=== PATIENT | male | born 1960 | race Hispanic/Latino ===

== ENCOUNTER 2016-12-05 16:53 | Emergency (ER) | payer OTHER ==
--- NOTE | 2016-12-05 17:06 | EDM.PDOC ---
ED HPI GENERAL MEDICAL PROBLEM - General Chief Complaint: Back Pain or Injury Stated Complaint: FELL AND HIT TAIL BONE/WC Time Seen by Provider: 12/05/16 16:59 - History of Present Illness INITIAL COMMENTS - FREE TEXT/NARRATIVE: HISTORY AND PHYSICAL: History of present illness: Patient is a 56-year-old male with no significant past medical history presents status post fall in which he struck his right hip and pelvis is from standing position there is no head or neck pain or trauma he simply slipped personal chest pain dizziness palpitations or other concern he denies abdominal or chest pain but her neck pain Review of systems: As per history of present illness and below otherwise all systems reviewed and negative. Past medical history: As per history of present illness and as reviewed below otherwise noncontributory. Surgical history: As per history of present illness and as reviewed below otherwise noncontributory. Social history: No reported history of drug or alcohol abuse. Family history: As per history of present illness and as reviewed below otherwise noncontributory. Physical exam: HEENT: Atraumatic, normocephalic, pupils reactive, negative for conjunctival pallor or scleral icterus, mucous membranes moist, throat clear, neck supple, nontender, trachea midline. Lungs: Clear to auscultation, breath sounds equal bilaterally, chest nontender. Heart: S1S2, regular, negative for clicks, rubs, or JVD. Abdomen: Soft, nondistended, nontender. Negative for masses or hepatosplenomegaly. Negative for costovertebral tenderness. Pelvis: Stable nontender. Patient has some erythema noted over the right lateral superior iliac crest is no crepitation or point tenderness Genitourinary: Deferred. Rectal: Deferred. Extremities: Atraumatic, negative for cords or calf pain. Neurovascular unremarkable. Neuro: Awake, alert, oriented. Cranial nerves II through XII unremarkable. Cerebellum unremarkable. Motor and sensory unremarkable throughout. Exam nonfocal. Back: No vertebral body or point tenderness patient able to stand on his toes back on his heels deep tendon reflexes are normal Diagnostics: CBC CMP PT/INR UA chest x-ray lumbar spine x-ray right hip/pelvis x-ray Therapeutics: None Impression: X-ray status post fall #2 right pelvis/hip contusion Definitive disposition and diagnosis as appropriate pending reevaluation and review of above. right flank/back Pain Score (Numeric/FACES): 10 - Related Data Allergies Allergy/AdvReac Type Severity Reaction Status Date / Time No Known Allergies Allergy Verified 12/05/16 17:01 ED ROS GENERAL - Review of Systems Review Of Systems: ROS reveals no pertinent complaints other than HPI. ED EXAM, GENERAL - Physical Exam Exam: See Below (See dictation) Course - Vital Signs Last Recorded V/S: Last Vital Signs Temp 36.9 C 12/05/16 17:01 Pulse 58 L 12/05/16 17:01 Resp 18 12/05/16 17:01 BP 161/95 H 12/05/16 17:01 Pulse Ox 95 12/05/16 17:01 - Orders/Labs/Meds Orders: Active Orders 24 hr Category Date Time Status Chest 2V [CR] Stat Exams 12/05/16 17:02 Taken Hip Min 2V or 3V w Pelvis Rt [CR] Stat Exams 12/05/16 17:03 Taken Lumbar Spine 2 or 3V [CR] Stat Exams 12/05/16 17:04 Taken Labs: Laboratory Tests 12/05/16 12/05/16 12/05/16 Range/Units 17:15 17:15 17:15 WBC 10.20 (4.0-11.0) K/uL RBC 5.04 (4.50-5.90) M/uL Hgb 15.1 (13.0-17.0) g/dL Hct 45.2 (38.0-50.0) % MCV 89.7 (80.0-98.0) fL MCH 30.0 (27.0-32.0) pg MCHC 33.4 (31.0-37.0) g/dL RDW Std Deviation 45.0 (28.0-62.0) fl RDW Coeff of Fatuma 14 (11.0-15.0) % Plt Count 252 (150-400) K/uL MPV 10.50 (7.40-12.00) fL Neut % (Auto) 70.1 (48.0-80.0) % Lymph % (Auto) 21.8 (16.0-40.0) % Fountain % (Auto) 4.7 (0.0-15.0) % Eos % (Auto) 3.0 (0.0-7.0) % Baso % (Auto) 0.4 (0.0-1.5) % Neut # 7.2 H (1.4-5.7) K/uL Lymph # 2.2 (0.6-2.4) K/uL Fountain # 0.5 (0.0-0.8) K/uL Eos # 0.3 (0.0-0.7) K/uL Baso # 0.0 (0.0-0.1) K/uL Nucleated RBC % 0.0 /100WBC Nucleated RBCs # 0 K/uL INR 1.00 (0.86-1.11) Sodium 137 (136-146) mmol/L Potassium 3.8 (3.5-5.1) mmol/L Chloride 107 (98-110) mmol/L Carbon Dioxide 20 L (21-31) mmol/L BUN 11 (6.0-23.0) mg/dL Creatinine 1.0 (0.6-1.5) mg/dL Est Cr Clr Drug Dosing 76.21 mL/min Estimated GFR (MDRD) > 60.0 ml/min Glucose 126 H (60-110) mg/dL Calcium 9.2 (8.8-10.8) mg/dL Total Bilirubin 0.4 (0.1-1.5) mg/dL AST 18 (5-40) IU/L ALT 20 (8-54) IU/L Alkaline Phosphatase 126 (40-150) Total Protein 6.8 (6.0-8.0) g/dL Albumin 4.1 (3.5-5.0) g/dL Globulin 2.7 (2.0-3.5) g/dL Albumin/Globulin Ratio 1.5 (1.3-2.8) Urine Color Urine Appearance Urine pH (5.0-8.0) Ur Specific [place] (1.001-1.035) Urine Protein (NEGATIVE) mg/dL Urine Glucose (UA) (NEGATIVE) mg/dL Urine Ketones (NEGATIVE) mg/dL Urine Occult Blood (NEGATIVE) Urine Nitrite (NEGATIVE) Urine Bilirubin (NEGATIVE) Urine Urobilinogen (<2.0) EU/dL Ur Leukocyte Esterase (NEGATIVE) Urine RBC (0-2/HPF) Urine WBC (0-5/HPF) Ur Epithelial Cells (NONE-FEW) Urine Bacteria (NEGATIVE) Urine Mucus (NONE-MOD) 12/05/16 Range/Units 17:15 WBC (4.0-11.0) K/uL RBC (4.50-5.90) M/uL Hgb (13.0-17.0) g/dL Hct (38.0-50.0) % MCV (80.0-98.0) fL MCH (27.0-32.0) pg MCHC (31.0-37.0) g/dL RDW Std Deviation (28.0-62.0) fl RDW Coeff of Fatuma (11.0-15.0) % Plt Count (150-400) K/uL MPV (7.40-12.00) fL Neut % (Auto) (48.0-80.0) % Lymph % (Auto) (16.0-40.0) % Fountain % (Auto) (0.0-15.0) % Eos % (Auto) (0.0-7.0) % Baso % (Auto) (0.0-1.5) % Neut # (1.4-5.7) K/uL Lymph # (0.6-2.4) K/uL Fountain # (0.0-0.8) K/uL Eos # (0.0-0.7) K/uL Baso # (0.0-0.1) K/uL Nucleated RBC % /100WBC Nucleated RBCs # K/uL INR (0.86-1.11) Sodium (136-146) mmol/L Potassium (3.5-5.1) mmol/L Chloride (98-110) mmol/L Carbon Dioxide (21-31) mmol/L BUN (6.0-23.0) mg/dL Creatinine (0.6-1.5) mg/dL Est Cr Clr Drug Dosing mL/min Estimated GFR (MDRD) ml/min Glucose (60-110) mg/dL Calcium (8.8-10.8) mg/dL Total Bilirubin (0.1-1.5) mg/dL AST (5-40) IU/L ALT (8-54) IU/L Alkaline Phosphatase (40-150) Total Protein (6.0-8.0) g/dL Albumin (3.5-5.0) g/dL Globulin (2.0-3.5) g/dL Albumin/Globulin Ratio (1.3-2.8) Urine Color YELLOW Urine Appearance CLEAR Urine pH 5.5 (5.0-8.0) Ur Specific [place] 1.025 (1.001-1.035) Urine Protein NEGATIVE (NEGATIVE) mg/dL Urine Glucose (UA) NEGATIVE (NEGATIVE) mg/dL Urine Ketones NEGATIVE (NEGATIVE) mg/dL Urine Occult Blood TRACE-INTACT (NEGATIVE) Urine Nitrite NEGATIVE (NEGATIVE) Urine Bilirubin NEGATIVE (NEGATIVE) Urine Urobilinogen 0.2 (<2.0) EU/dL Ur Leukocyte Esterase NEGATIVE (NEGATIVE) Urine RBC 0-1 (0-2/HPF) Urine WBC 0-1 (0-5/HPF) Ur Epithelial Cells FEW (NONE-FEW) Urine Bacteria RARE (NEGATIVE) Urine Mucus LIGHT (NONE-MOD) Departure - Departure Time of Disposition: 18:12 Disposition: Home, Self-Care 01 Condition: good Clinical Impression: Fall, Contusion Forms: ED Department Discharge Additional Instructions: The following information is given to patients seen in the emergency department who are being discharged to home. This information is to outline your options for follow-up care. We provide all patients seen in our emergency department with a follow-up referral. The need for follow-up, as well as the timing and circumstances, are variable depending upon the specifics of your emergency department visit. If you don't have a primary care physician on staff, we will provide you with a referral. We always advise you to contact your personal physician following an emergency department visit to inform them of the circumstance of the visit and for follow-up with them and/or the need for any referrals to a consulting specialist. The emergency department will also refer you to a specialist when appropriate. This referral assures that you have the opportunity for followup care with a specialist. All of these measure are taken in an effort to provide you with optimal care, which includes your followup. Under all circumstances we always encourage you to contact your private physician who remains a resource for coordinating your care. When calling for followup care, please make the office aware that this follow-up is from your recent emergency room visit. If for any reason you are refused follow-up, please contact the [facility] emergency department at and asked to speak to the emergency department charge nurse. Motrin/Tylenol as directed followup private medical doctor/occupational medicine 24-48 hours return as needed if his - My Orders Last 24 Hours: My Active Orders 12/05/16 17:02 Chest 2V [CR] Stat 12/05/16 17:03 Hip Min 2V or 3V w Pelvis Rt [CR] Stat 12/05/16 17:04 Lumbar Spine 2 or 3V [CR] Stat - Assessment/Plan Last 24 Hours: My Active Orders 12/05/16 17:02 Chest 2V [CR] Stat 12/05/16 17:03 Hip Min 2V or 3V w Pelvis Rt [CR] Stat 12/05/16 17:04 Lumbar Spine 2 or 3V [CR] Stat
[2016-12-05 17:55] LABS: CHLORIDE,CL 107 mmol/L (98-110); SODIUM,NA 137 mmol/L (136-146)
[2016-12-05 19:00] VITALS: BP 131/81
--- NOTE | 2016-12-08 15:33 | CR ---
EXAM DATE: 12/05/16 PATIENT'S AGE: 56 Patient: HARRY AMAYA Facility: [place], [place] Site . Site : 1960 Study: XRay Chest [id number]/3/2017 6:09:29 PM Ordering Physician: Doctor Molina Final Report: INDICATION: pain after fall FINDINGS: Two PA chest x-rays and a single lateral chest x-ray show a normal cardiac silhouette. The lungs show no focal pulmonary opacities. Sharp pleural margins. No pneumothorax. IMPRESSION: No evidence of acute pulmonary abnormalities. Dictated by Godwin Castillo MD @ 12/05/2016 6:14:03 PM Dictated by: Godwin Castillo MD @ 12/05/2016 18:14:15 (Electronic Signature) Report Signed by Proxy and Original Signed Document filed in the Medical Record. JEAN-PIERRE
--- NOTE | 2016-12-08 15:34 | CR ---
EXAM DATE: 12/05/16 PATIENT'S AGE: 56 Patient: HARRY AMAYA Facility: [place], [place] Site . Site : 1960 Study: XRay Spine Lumbar [id number]/3/2017 6:09:48 PM Ordering Physician: Doctor Molina Final Report: INDICATION: pain after fall FINDINGS: Three views of the lumbar spine show dextro convex scoliotic changes of the lumbar spine. Multilevel disc space narrowing and marginal osteophyte formation. No evidence of acute fracture or dislocation. No other bony or soft tissue abnormalities identified. Dictated by Godwin Castillo MD @ 12/05/2016 6:15:41 PM Dictated by: Godwin Castillo MD @ 12/05/2016 18:19:25 (Electronic Signature) Report Signed by Proxy and Original Signed Document filed in the Medical Record. JEAN-PIERRE
--- NOTE | 2016-12-08 15:34 | CR ---
EXAM DATE: 12/05/16 PATIENT'S AGE: 56 Patient: HARRY AMAYA Facility: [place], [place] Site . Site : 1960 Study: XRay Extremity Right Hip.Pelvis [id number]/3/2017 6:10:10 PM Ordering Physician: Brandin Magaña Final Report: INDICATION: pain after fall FINDINGS: A single frontal view of the pelvis along with 2 views of the right hip show no evidence of acute fracture or dislocation. The hip joints appear intact. Degenerative changes of the lower lumbar spine. No other bony or soft tissue abnormalities identified. Dictated by Godwin Castillo MD @ 12/05/2016 6:20:47 PM Dictated by: Godwin Castillo MD @ 12/05/2016 18:21:12 (Electronic Signature) Report Signed by Proxy and Original Signed Document filed in the Medical Record. MTDSaray
== END 2016-12-05 18:57 | disposition home or self-care (01) ==
LOC: MW.ED 16:53
DX: S70.01XA Contusion of right hip, initial encounter (principal); W18.09XA Striking against other object with subsequent fall, initial encounter
CPT/HCPCS: 36415; 71020; 71020-26; 72100; 72100-26; 73502-26-RT; 73502-RT; 80053; 81001; 85025; 85610; 99283

== ENCOUNTER 2018-10-21 16:04 | Emergency (ER) | payer BC ==
--- NOTE | 2018-10-21 16:22 | EDM.PDOC ---
ED HPI GENERAL MEDICAL PROBLEM - General Chief Complaint: Respiratory Problem Stated Complaint: COUGH,FEVER Time Seen by Provider: 10/21/18 16:16 Source of Information: Reports: Patient History Limitations: Reports: No Limitations - History of Present Illness INITIAL COMMENTS - FREE TEXT/NARRATIVE: HISTORY AND PHYSICAL: History of present illness: Patient is a 58-year-old male who presents to the emergency room with concerns of cough, fever and body aches. He states that 2 of his children who live in the home with him have recently been diagnosed with influenza. He states they were treated with Tamiflu but he did not receive any prophylactic treatment. He denies any chest pain, shortness of breath, abdominal pain, nausea, vomiting, diarrhea, constipation or dysuria. He has been able to eat and drink appropriately. Denies any recent travel or rashes. Review of systems: As per history of present illness and below otherwise all systems reviewed and negative. Past medical history: As per history of present illness and as reviewed below otherwise noncontributory. Surgical history: As per history of present illness and as reviewed below otherwise noncontributory. Social history: See social history for further information Family history: As per history of present illness and as reviewed below otherwise noncontributory. Physical exam: General: Well-developed and well-nourished 58-year-old male. Alert and oriented. Nontoxic appearing and in no acute distress. HEENT: Atraumatic, normocephalic, pupils equal and reactive bilaterally, negative for conjunctival pallor or scleral icterus, mucous membranes moist, TMs normal bilaterally, throat clear, neck supple, nontender, trachea midline. No drooling or trismus noted. No meningeal signs. No hot potato voice noted. Lungs: Clear to auscultation, breath sounds equal bilaterally, chest nontender. Heart: S1S2, regular rate and rhythm without overt murmur Abdomen: Soft, nondistended, nontender. Negative for masses or hepatosplenomegaly. Negative for costovertebral tenderness. Pelvis: Stable nontender. Genitourinary: Deferred. Rectal: Deferred. Skin: Intact, warm, dry. No lesions or rashes noted. Extremities: Atraumatic, negative for cords or calf pain. Neurovascular unremarkable. Neuro: Awake, alert, oriented. Cranial nerves II through XII unremarkable. Cerebellum unremarkable. Motor and sensory unremarkable throughout. Exam nonfocal. Notes: Negative flu, but due to exposure and symptoms will treat the patient with Tamiflu. Supportive care measures were reviewed and discussed. He voices understanding and is agreeable to plan of care. Denies any further questions or concerns at this time. Diagnostics: Chest x-ray, influenza Therapeutics: None Prescription: Tamiflu Tylenol No. 3 (#15) Impression: Viral Upper Respiratory Illness Plan: 1. Standard contact precautions (covering mouth while coughing, avoid sharing drinking cups and eating utensils). Please make sure you're doing good handwashing as this is contagious. 2. Please start the Tamiflu today, take as directed. 3. Supportive care measures such as Tylenol and/or ibuprofen for pain and fever management.Encourage small frequent sips of fluids to prevent dehydration. 4. Follow-up with your primary care provider in the next 1-2 days. Return to the ED as needed and as discussed. Definitive disposition and diagnosis as appropriate pending reevaluation and review of above. Whole body Pain Score (Numeric/FACES): 7 - Related Data Allergies Allergy/AdvReac Type Severity Reaction Status Date / Time No Known Allergies Allergy Verified 10/21/18 16:15 Home Meds: Home Meds Acetaminophen with Codeine [Tylenol with Codeine #3 Tablet] 1 each PO Q4HR PRN # 15 tablet 10/21/18 [Rx] Oseltamivir [Tamiflu] 75 mg PO BID 5 Days #10 cap 10/21/18 [Rx] Past Medical History HEENT History: Reports: Other (See Below) Other HEENT History: wears glasses Cardiovascular History: Reports: None Respiratory History: Reports: None Gastrointestinal History: Reports: Other (See Below) Other Gastrointestinal History: ulcer Genitourinary History: Reports: None Musculoskeletal History: Reports: None Neurological History: Reports: None Psychiatric History: Reports: None Endocrine/Metabolic History: Reports: None Hematologic History: Reports: None Immunologic History: Reports: None Oncologic (Cancer) History: Reports: None Dermatologic History: Reports: None - Infectious Disease History Infectious Disease History: Reports: None - Past Surgical History Head Surgeries/Procedures: Reports: None GI Surgical History: Reports: Appendectomy Social & Family History - Family History Family Medical History: Noncontributory - Caffeine Use Caffeine Use: Reports: Soda ED ROS GENERAL - Review of Systems Review Of Systems: ROS reveals no pertinent complaints other than HPI. ED EXAM, GENERAL - Physical Exam Exam: See Below (See dictation) Course - Vital Signs Last Recorded V/S: Last Vital Signs Temp 101.0 F H 10/21/18 16:16 Pulse 82 10/21/18 16:16 Resp 16 10/21/18 16:16 BP 140/93 H 10/21/18 16:16 Pulse Ox 96 10/21/18 16:16 - Orders/Labs/Meds Orders: Active Orders 24 hr Category Date Time Status Chest 2V [CR] Stat Exams 10/21/18 16:16 Taken Meds: Medications Discontinued Medications Generic Name Dose Route Start Last Admin Trade Name Freq PRN Reason Stop Dose Admin Acetaminophen 1,000 mg 10/21/18 16:58 Tylenol Extra Strength PO 10/21/18 16:59 ONETIME ONE Departure - Departure Time of Disposition: 17:00 Disposition: Home, Self-Care 01 Clinical Impression: Viral upper respiratory illness - Discharge Information Prescriptions: Acetaminophen with Codeine [Tylenol with Codeine #3 Tablet] 1 each PO Q4HR PRN # 15 tablet PRN Reason: Pain (Moderate 4-6) Oseltamivir [Tamiflu] 75 mg PO BID 5 Days #10 cap Instructions: Viral Respiratory Infection, [id number] Referrals: Jasen Thorne MD [Primary Care Provider] - Forms: ED Department Discharge Additional Instructions: The following information is given to patients seen in the emergency department who are being discharged to home. This information is to outline your options for follow-up care. We provide all patients seen in our emergency department with a follow-up referral. The need for follow-up, as well as the timing and circumstances, are variable depending upon the specifics of your emergency department visit. If you don't have a primary care physician on staff, we will provide you with a referral. We always advise you to contact your personal physician following an emergency department visit to inform them of the circumstance of the visit and for follow-up with them and/or the need for any referrals to a consulting specialist. The emergency department will also refer you to a specialist when appropriate. This referral assures that you have the opportunity for follow-up care with a specialist. All of these measure are taken in an effort to provide you with optimal care, which includes your follow-up. Under all circumstances we always encourage you to contact your private physician who remains a resource for coordinating your care. When calling for follow-up care, please make the office aware that this follow-up is from your recent emergency room visit. If for any reason you are refused follow-up, please contact the [facility] Emergency Department at and asked to speak to the emergency department charge nurse. [facility] [address] [place] [id number] [facility] [address] [place] [address] 1. Standard contact precautions (covering mouth while coughing, avoid sharing drinking cups and eating utensils). Please make sure you're doing good handwashing as this is contagious. 2. Please start the Tamiflu today, take as directed. 3. Supportive care measures such as Tylenol and/or ibuprofen for pain and fever management.Encourage small frequent sips of fluids to prevent dehydration. 4. Follow-up with your primary care provider in the next 1-2 days. Return to the ED as needed and as discussed. - My Orders Last 24 Hours: My Active Orders 10/21/18 16:16 Chest 2V [CR] Stat - Assessment/Plan Last 24 Hours: My Active Orders 10/21/18 16:16 Chest 2V [CR] Stat
[2018-10-21] MEDS ORDERED: Acetaminophen 500 MG Tab PO ONE (16:58)
--- NOTE | 2018-10-21 17:08 | CR ---
INDICATION: fever, body aches TECHNIQUE: Chest 2 views. COMPARISON: None. FINDINGS: Cardiovascular and mediastinum: Heart size and vasculature are normal in caliber and appearance. Mediastinum is within normal limits. Lungs and pleural spaces: Lungs are clear. No sign of infiltrate or mass. No sign of pleural effusion. No pneumothorax. Bones and soft tissues: No significant findings. IMPRESSION: Unremarkable chest. Dictated by: Sheng Martínez MD @ 10/21/2018 17:08:12 (Electronically Signed)
[2018-10-21 17:27] VITALS: BP 137/86
== END 2018-10-21 17:15 | disposition home or self-care (01) ==
LOC: MW.ED 16:04
DX: J06.9 Acute upper respiratory infection, unspecified (principal)
CPT/HCPCS: 71046; 71046-26; 87804; 99283

== ENCOUNTER 2018-12-03 10:46 | Inpatient (IN) | payer BC ==
--- NOTE | 2018-12-03 10:51 | EDM.PDOC ---
ED HPI GENERAL MEDICAL PROBLEM - General Chief Complaint: Gastrointestinal Problem Stated Complaint: STOMACH PAIN DIZZY Time Seen by Provider: 12/03/18 11:00 Source of Information: Reports: Patient History Limitations: Reports: No Limitations - History of Present Illness INITIAL COMMENTS - FREE TEXT/NARRATIVE: HISTORY AND PHYSICAL: History of present illness: Patient is a 58-year-old male who presents to the ED with concerns of generalized abdominal pain. Patient states the pain started last night. He states he's had a few episodes of vomiting but no diarrhea or change in stools. He states that he also has felt sweaty throughout the night but has not checked any temperature at home. He states he does feel he is anxious about his father' s health concerns. He states the pain is "all over" and "comes and goes". He states he has been able to eat and drink but has had an episode of vomiting this morning. He states his bowel movements have been normal for him. He did have a bowel movement this morning and states it was "normal." He rates his pain a 6/10. Patient denies shortness of breath, chest pain, blood in stool or urine, difficulties urinating, headache, visual changes, pain with inspiration, or all other GI, , cardiovascular, or respiratory concerns. Patient states he does have a history of high cholesterol but denies any other health history today. Review of systems: As per history of present illness and below otherwise all systems reviewed and negative. Past medical history: As per history of present illness and as reviewed below otherwise noncontributory. Surgical history: As per history of present illness and as reviewed below otherwise noncontributory. Social history: No reported history of drug or alcohol abuse. Family history: As per history of present illness and as reviewed below otherwise noncontributory. Physical exam: General: Patient sitting comfortably in no acute distress and nontoxic appearing HEENT: Atraumatic, normocephalic, pupils reactive, negative for conjunctival pallor or scleral icterus, mucous membranes moist, throat clear, neck supple, nontender, trachea midline. No meningeal signs. Lungs: Clear to auscultation, breath sounds equal bilaterally, chest nontender. Heart: S1S2, regular, negative for clicks, rubs, or overt murmur. Abdomen: Generalized mild pain to palpation of all quadrants. Otherwise, soft, nondistended, nontender. Negative for masses or hepatosplenomegaly. Negative for costovertebral tenderness. No rigidity, rebound, guarding Pelvis: Stable nontender. Genitourinary: Deferred. Rectal: Deferred. Extremities: Atraumatic, negative for cords or calf pain. Neurovascular unremarkable. Neuro: Awake, alert, oriented. Cranial nerves II through XII unremarkable. Cerebellum unremarkable. Motor and sensory unremarkable throughout. Exam nonfocal. Notes: On exam, patient does have mild pain to palpation of the generalized abdomen. He is slightly tachycardic and hypertensive. Will do labs and imaging today. Chest x-ray shows no acute cardiopulmonary process. Abdominal CT shows a partial or complete small bowel obstruction at a prior anastomotic site. He does have an elevated white blood cell count and a slightly elevated lactate level. Blood cultures were obtained. Dr. Boss, the general surgeon, was consulted on this patient and will admit patient. Supportive care measures were reviewed and discussed with patient. He is agreeable to plan of care without any questions or concerns at this time. Diagnostics: CBC, CMP, UA, chest x-ray, EKG, lipase, abdominal/pelvic CT, troponin, cardiac monitoring, blood cultures Therapeutics: saline, zofran, toradol Impression: Small bowel obstruction Plan: 1. Admit to observation Definitive disposition and diagnosis as appropriate pending reevaluation and review of above. Abdominal Pain Score (Numeric/FACES): 10 - Related Data Allergies Allergy/AdvReac Type Severity Reaction Status Date / Time No Known Allergies Allergy Verified 12/03/18 10:48 Home Meds: Home Meds . [No Known Home Meds] 12/03/18 [History] Past Medical History HEENT History: Reports: Other (See Below) Other HEENT History: wears glasses Cardiovascular History: Reports: None Respiratory History: Reports: None Gastrointestinal History: Reports: Other (See Below) Other Gastrointestinal History: ulcer Genitourinary History: Reports: None Musculoskeletal History: Reports: None Neurological History: Reports: None Psychiatric History: Reports: None Endocrine/Metabolic History: Reports: None Hematologic History: Reports: None Immunologic History: Reports: None Oncologic (Cancer) History: Reports: None Dermatologic History: Reports: None - Infectious Disease History Infectious Disease History: Reports: None - Past Surgical History Head Surgeries/Procedures: Reports: None GI Surgical History: Reports: Appendectomy Social & Family History - Family History Family Medical History: Noncontributory - Caffeine Use Caffeine Use: Reports: Soda ED ROS GENERAL - Review of Systems Review Of Systems: ROS reveals no pertinent complaints other than HPI. ED EXAM, GI/ABD - Physical Exam Exam: See Below (See dictation) Course - Vital Signs Last Recorded V/S: Last Vital Signs Temp 97.4 F 12/03/18 10:49 Pulse 107 H 12/03/18 10:49 Resp 18 12/03/18 10:49 BP 147/100 H 12/03/18 10:49 Pulse Ox 96 12/03/18 10:49 - Orders/Labs/Meds Orders: Active Orders 24 hr Category Date Time Status Admission Status [Patient Status] [ADT] Stat ADT 12/03/18 14:28 Active Cardiac Monitoring [RC] . DIRECTED Care 12/03/18 11:04 Active Communication Order [RC] STAT Care 12/03/18 13:38 Active EKG Documentation Completion [RC] STAT Care 12/03/18 11:00 Active Notify Provider Consults [RC] ASDIRECTED Care 12/03/18 13:54 Active Consult to Physician [CONS] Stat Cons 12/03/18 13:54 Active CULTURE BLOOD [BC] Stat Lab 12/03/18 11:58 Results CULTURE BLOOD [BC] Stat Lab 12/03/18 12:09 Received Sodium Chloride 0.9% [Normal Saline] 1,000 ml Med 12/03/18 13:28 Active IV STAT Blood Culture x2 Reflex Set [OM.PC] Stat Oth 12/03/18 11:33 Ordered Medication Orders Sodium Chloride (Normal Saline) 1,000 mls @ 150 mls/hr IV STAT ONE Stop: 12/03/18 20:07 Last Admin: 12/03/18 14:03 Dose: 150 mls/hr Labs: Laboratory Tests 12/03/18 12/03/18 12/03/18 Range/Units 11:10 11:10 11:25 WBC 19.69 H (4.0-11.0) K/uL RBC 5.87 (4.50-5.90) M/uL Hgb 17.7 H (13.0-17.0) g/dL Hct 51.4 H (38.0-50.0) % MCV 87.6 (80.0-98.0) fL MCH 30.2 (27.0-32.0) pg MCHC 34.4 (31.0-37.0) g/dL RDW Std Deviation 42.7 (28.0-62.0) fl RDW Coeff of Fatuma 13 (11.0-15.0) % Plt Count 242 (150-400) K/uL MPV 10.70 (7.40-12.00) fL Neut % (Auto) 86.8 H (48.0-80.0) % Lymph % (Auto) 7.4 L (16.0-40.0) % [place] % (Auto) 5.2 (0.0-15.0) % Eos % (Auto) 0.5 (0.0-7.0) % Baso % (Auto) 0.1 (0.0-1.5) % Neut # (Auto) 17.1 H (1.4-5.7) K/uL Lymph # (Auto) 1.5 (0.6-2.4) K/uL [place] # (Auto) 1.0 H (0.0-0.8) K/uL Eos # (Auto) 0.1 (0.0-0.7) K/uL Baso # (Auto) 0.0 (0.0-0.1) K/uL Nucleated RBC % 0.0 /100WBC Nucleated RBCs # 0 K/uL Lactate (0.20-2.00) mmol/L Sodium 138 (136-148) mmol/L Potassium 3.7 (3.5-5.1) mmol/L Chloride 104 (98-107) mmol/L Carbon Dioxide 24.8 (21.0-32.0) mmol/L BUN 12 (7.0-18.0) mg/dL Creatinine 1.1 (0.8-1.3) mg/dL Est Cr Clr Drug Dosing 67.67 mL/min Estimated GFR (MDRD) > 60.0 ml/min Glucose 144 H (74-106) mg/dL Calcium 9.3 (8.5-10.1) mg/dL Total Bilirubin 0.7 (0.2-1.0) mg/dL AST 21 (15-37) IU/L ALT 29 (14-63) IU/L Alkaline Phosphatase 127 H (46-116) U/L Troponin I 0.051 (0.000-0.056) ng/mL Total Protein 7.1 (6.4-8.2) g/dL Albumin 3.9 (3.4-5.0) g/dL Globulin 3.2 (2.6-4.0) g/dL Albumin/Globulin Ratio 1.2 (0.9-1.6) Lipase 77 (73-393) U/L Urine Color YELLOW Urine Appearance CLEAR Urine pH 7.5 (5.0-8.0) Ur Specific [place] 1.010 (1.001-1.035) Urine Protein 30 H (NEGATIVE) mg/dL Urine Glucose (UA) NEGATIVE (NEGATIVE) mg/dL Urine Ketones TRACE H (NEGATIVE) mg/dL Urine Occult Blood NEGATIVE (NEGATIVE) Urine Nitrite NEGATIVE (NEGATIVE) Urine Bilirubin SMALL H (NEGATIVE) Urine Ictotest NEGATIVE Urine Urobilinogen 4.0 H (<2.0) EU/dL Ur Leukocyte Esterase NEGATIVE (NEGATIVE) Urine RBC 1-2 (0-2/HPF) Urine WBC 0-1 (0-5/HPF) Ur Epithelial Cells RARE (NONE-FEW) Urine Bacteria RARE (NEGATIVE) 12/03/18 Range/Units 11:58 WBC (4.0-11.0) K/uL RBC (4.50-5.90) M/uL Hgb (13.0-17.0) g/dL Hct (38.0-50.0) % MCV (80.0-98.0) fL MCH (27.0-32.0) pg MCHC (31.0-37.0) g/dL RDW Std Deviation (28.0-62.0) fl RDW Coeff of Fatuma (11.0-15.0) % Plt Count (150-400) K/uL MPV (7.40-12.00) fL Neut % (Auto) (48.0-80.0) % Lymph % (Auto) (16.0-40.0) % [place] % (Auto) (0.0-15.0) % Eos % (Auto) (0.0-7.0) % Baso % (Auto) (0.0-1.5) % Neut # (Auto) (1.4-5.7) K/uL Lymph # (Auto) (0.6-2.4) K/uL [place] # (Auto) (0.0-0.8) K/uL Eos # (Auto) (0.0-0.7) K/uL Baso # (Auto) (0.0-0.1) K/uL Nucleated RBC % /100WBC Nucleated RBCs # K/uL Lactate 2.4 H (0.20-2.00) mmol/L Sodium (136-148) mmol/L Potassium (3.5-5.1) mmol/L Chloride (98-107) mmol/L Carbon Dioxide (21.0-32.0) mmol/L BUN (7.0-18.0) mg/dL Creatinine (0.8-1.3) mg/dL Est Cr Clr Drug Dosing mL/min Estimated GFR (MDRD) ml/min Glucose (74-106) mg/dL Calcium (8.5-10.1) mg/dL Total Bilirubin (0.2-1.0) mg/dL AST (15-37) IU/L ALT (14-63) IU/L Alkaline Phosphatase (46-116) U/L Troponin I (0.000-0.056) ng/mL Total Protein (6.4-8.2) g/dL Albumin (3.4-5.0) g/dL Globulin (2.6-4.0) g/dL Albumin/Globulin Ratio (0.9-1.6) Lipase (73-393) U/L Urine Color Urine Appearance Urine pH (5.0-8.0) Ur Specific [place] (1.001-1.035) Urine Protein (NEGATIVE) mg/dL Urine Glucose (UA) (NEGATIVE) mg/dL Urine Ketones (NEGATIVE) mg/dL Urine Occult Blood (NEGATIVE) Urine Nitrite (NEGATIVE) Urine Bilirubin (NEGATIVE) Urine Ictotest Urine Urobilinogen (<2.0) EU/dL Ur Leukocyte Esterase (NEGATIVE) Urine RBC (0-2/HPF) Urine WBC (0-5/HPF) Ur Epithelial Cells (NONE-FEW) Urine Bacteria (NEGATIVE) Meds: Medications Generic Name Dose Route Start Last Admin Trade Name Freq PRN Reason Stop Dose Admin Sodium Chloride 1,000 mls @ 150 mls/hr 12/03/18 13:28 12/03/18 14:03 Normal Saline IV 12/03/18 20:07 150 mls/hr STAT ONE Administration Discontinued Medications Generic Name Dose Route Start Last Admin Trade Name Yuan PRN Reason Stop Dose Admin Sodium Chloride 1,000 mls @ 999 mls/hr 12/03/18 11:02 12/03/18 11:19 Normal Saline IV 12/03/18 12:02 999 mls/hr STAT ONE Administration Iopamidol 100 ml 12/03/18 12:31 12/03/18 12:42 Isovue Multipack-370 (76%) IVPUSH 12/03/18 12:32 100 ml ONETIME STA Administration Ketorolac Tromethamine 30 mg 12/03/18 11:03 12/03/18 11:19 Toradol IVPUSH 12/03/18 11:04 30 mg ONETIME ONE Administration Nicotine 21 mg 12/03/18 13:42 12/03/18 14:03 Habitrol TRDERM 12/03/18 13:43 21 mg ONETIME ONE Administration Ondansetron HCl 4 mg 12/03/18 11:02 12/03/18 11:19 Zofran IVPUSH 12/03/18 11:03 4 mg ONETIME ONE Administration Departure - Departure Time of Disposition: 14:34 Disposition: Refer to Observation Clinical Impression: Small bowel obstruction - Discharge Information Referrals: PCP,Unknown [Primary Care Provider] - Forms: ED Department Discharge - My Orders Last 24 Hours: My Active Orders 12/03/18 11:00 EKG Documentation Completion [RC] STAT 12/03/18 11:04 Cardiac Monitoring [RC] . DIRECTED 12/03/18 11:33 Blood Culture x2 Reflex Set [OM.PC] Stat 12/03/18 11:58 CULTURE BLOOD [BC] Stat 12/03/18 12:09 CULTURE BLOOD [BC] Stat 12/03/18 13:28 Sodium Chloride 0.9% [Normal Saline] 1,000 ml IV STAT 12/03/18 13:38 Communication Order [RC] STAT 12/03/18 13:54 Notify Provider Consults [RC] ASDIRECTED Consult to Physician [CONS] Stat 12/03/18 14:28 Admission Status [Patient Status] [ADT] Stat - Assessment/Plan Last 24 Hours: My Active Orders 12/03/18 11:00 EKG Documentation Completion [RC] STAT 12/03/18 11:04 Cardiac Monitoring [RC] . DIRECTED 12/03/18 11:33 Blood Culture x2 Reflex Set [OM.PC] Stat 12/03/18 11:58 CULTURE BLOOD [BC] Stat 12/03/18 12:09 CULTURE BLOOD [BC] Stat 12/03/18 13:28 Sodium Chloride 0.9% [Normal Saline] 1,000 ml IV STAT 12/03/18 13:38 Communication Order [RC] STAT 12/03/18 13:54 Notify Provider Consults [RC] ASDIRECTED Consult to Physician [CONS] Stat 12/03/18 14:28 Admission Status [Patient Status] [ADT] Stat
[2018-12-03] MEDS ORDERED: Sodium Chloride 0.9% 1,000 ML IV ONE ×2 (11:02→13:28)
[2018-12-03] MEDS ORDERED: Ondansetron 4 MG/2 ML SDV IVPUSH ONE (11:02)
[2018-12-03] MEDS ORDERED: Ketorolac 30 MG/ML SDV IVPUSH ONE (11:03)
[2018-12-03 11:49] LABS: CHLORIDE,CL 104 mmol/L (98-107); SODIUM,NA 138 mmol/L (136-148)
[2018-12-03] MEDS ORDERED: Iopamidol 755 MG/ML 500 ML Multipack Bottle IVPUSH STA (12:31)
--- NOTE | 2018-12-03 13:11 | CR ---
EXAMINATION: PA chest radiograph. HISTORY: Shortness of breath. FINDINGS: The trachea is midline. The cardiomediastinal silhouette is within normal limits. No pulmonary infiltrates, effusions or pneumothorax. Osseous structures appear unremarkable. IMPRESSION: No acute cardiopulmonary process.
--- NOTE | 2018-12-03 13:20 | CT ---
CT of the abdomen and pelvis with contrast. HISTORY: Pain TECHNIQUE: Axial CT images were obtained of the abdomen and pelvis following administration of 100 mL of Isovue-370 in the right antecubital fossa without complication. Coronal and sagittal reconstructions obtained. FINDINGS: The lung bases are clear, no pleural effusion. Mild dependent atelectasis. The liver, spleen, adrenal glands, and pancreas appear normal. Cholelithiasis without event cholecystitis. No bulky retroperitoneal lymphadenopathy or abdominal ascites. The kidneys enhance and function symmetrically without evidence of obstructive uropathy. The colon appears normal in caliber. No focal pericolonic inflammation or stranding. There are several mildly loops of dilated small bowel measuring up to 3.3 cm. The transition point is noted at the small bowel anastomosis point within the right lower quadrant. There is a trace free pelvic fluid without free air. The urinary bladder is normal. No bulky retroperitoneal lymphadenopathy or abdominal ascites. No suspicious osseous abnormalities identified. Partial sacralization of L5 bilaterally. IMPRESSION: 1. At least partial versus early complete mechanical small bowel obstruction with the transition point at the small bowel anastomosis within the mid abdomen. 2. Trace free pelvic fluid. 3. Likely tiny cholelithiasis.
[2018-12-03] MEDS ORDERED: Nicotine 21 MG/24 Hr Patch TRDERM ONE (13:42)
[2018-12-03] MEDS ORDERED: Ondansetron 4 MG/2 ML SDV IVPUSH PRN (14:39)
--- NOTE | 2018-12-03 14:51 | PCM.HP ---
H&P History of Present Illness - General Date of Service: 12/03/18 Admit Problem/Dx: Admission Diagnosis/Problem Admission Diagnosis/Problem Small bowel obstruction Source of Information: Patient History Limitations: Reports: No Limitations - History of Present Illness Initial Comments - Free Text/Narative: Patient is a 58 y/o gentleman who presented to the ER today c/o abdominal pain, N/V since last night. Hasn't been passing much gas. No BM today. Denies fever or chills. States he had a similar episode a couple of months ago. No history of rectal bleeding. Did have an appendectomy 20+ years at [facility] in [place]. Also appears to have had a small bowel resection for "perforation". Patient isn't exactly sure what was done. Symptom Onset Date: 12/02/18 Duration of Symptoms: Reports: Constant, Recurring Location: Reports: Abdomen Quality: Reports: Ache, Pressure Severity: Moderate Improves with: Reports: Rest Worsens with: Reports: None Associated Symptoms: Reports: Nausea/Vomiting. Denies: Fever/Chills, Headaches , Loss of Appetite Abdominal Pain Score (Numeric/FACES): 10 - Related Data Allergies/Adverse Reactions: Allergies Allergy/AdvReac Type Severity Reaction Status Date / Time No Known Allergies Allergy Verified 12/03/18 10:48 Home Medications: Home Meds . [No Known Home Meds] 12/03/18 [History] Past Medical History HEENT History: Reports: Other (See Below) Other HEENT History: wears glasses Cardiovascular History: Reports: None Respiratory History: Reports: None Gastrointestinal History: Reports: Other (See Below) Other Gastrointestinal History: ulcer Genitourinary History: Reports: None Musculoskeletal History: Reports: None Neurological History: Reports: None Psychiatric History: Reports: None Endocrine/Metabolic History: Reports: None Hematologic History: Reports: None Immunologic History: Reports: None Oncologic (Cancer) History: Reports: None Dermatologic History: Reports: None - Infectious Disease History Infectious Disease History: Reports: None - Past Surgical History Head Surgeries/Procedures: Reports: None GI Surgical History: Reports: Appendectomy Other GI Surgeries/Procedures: Also states he has had a small bowel resection for "perforation". Isn't exactly sure what was done. Social & Family History - Family History Family Medical History: Noncontributory - Tobacco Use Smoking Status *Q: Current Every Day Smoker Years of Tobacco use: 30 Packs/Tins Daily: 1 - Caffeine Use Caffeine Use: Reports: Soda - Recreational Drug Use Recreational Drug Use: No H&P Review of Systems - Review of Systems: Review Of Systems: See Below General: Reports: Decreased Appetite. Denies: Fever, Chills, Malaise, Weakness , Fatigue, Diaphoresis, Weight Loss, Weight Gain HEENT: Reports: No Symptoms Pulmonary: Denies: Shortness of Breath, Wheezing, Cough, Sputum Cardiovascular: Denies: Chest Pain, Palpitations, Dyspnea on Exertion Gastrointestinal: Reports: Abdominal Pain, Anorexia, Constipation, Decreased Appetite, Flatus, Nausea, Vomiting. Denies: Black Stool, Bloody Stool, Diarrhea , Difficulty Swallowing, Distension, Hematemesis, Hematochezia, Melena Genitourinary: Denies: Dysuria, Frequency, Burning, Pain Musculoskeletal: Reports: No Symptoms Skin: Reports: No Symptoms Psychiatric: Denies: Confusion, Depression, Anxiety Neurological: Reports: No Symptoms Hematologic/Lymphatic: Reports: No Symptoms Immunologic: Reports: No Symptoms Exam - Exam Exam: See Below - Vital Signs Vital Signs: Last Vital Signs Temp 97.4 F 12/03/18 10:49 Pulse 107 H 12/03/18 10:49 Resp 18 12/03/18 10:49 BP 147/100 H 12/03/18 10:49 Pulse Ox 96 12/03/18 10:49 Weight: 188 lb - Exam General: Alert, Oriented, Cooperative, Mild Distress HEENT: Conjunctiva Clear, EACs Clear, Pupils Equal, Pupils Reactive. No: Scleral Icterus Neck: Supple, Trachea Midline, +2 Carotid Pulse wo Bruit Lungs: Clear to Auscultation, Normal Respiratory Effort Cardiovascular: Regular Rate, Regular Rhythm, Normal S1, Normal S2. No: Tachycardia GI/Abdominal Exam: Soft, Non-Tender, No Organomegaly, No Distention, No Mass, Abnormal Bowel Sounds (hypoactive, no high pitched tinkles or rushes), Other ( RLQ incision is well healed. No midline incision is present.). No: Guarding, Rigid, Rebound (Male) Exam: No Hernia Rectal (Males) Exam: Deferred Back Exam: Normal Inspection Extremities: Normal Inspection, Normal Range of Motion, No Pedal Edema Peripheral Pulses: 4+: Posterior Tibial (L), Posterior Tibial (R), Dorsalis Pedis (L), Dorsalis Pedis (R) Skin: Warm, Dry, Intact - Patient Data Lab Results Last 24 hrs: Laboratory Results - last 24 hr 12/03/18 12/03/18 12/03/18 Range/Units 11:10 11:10 11:25 WBC 19.69 H (4.0-11.0) K/uL RBC 5.87 (4.50-5.90) M/uL Hgb 17.7 H (13.0-17.0) g/dL Hct 51.4 H (38.0-50.0) % MCV 87.6 (80.0-98.0) fL MCH 30.2 (27.0-32.0) pg MCHC 34.4 (31.0-37.0) g/dL RDW Std Deviation 42.7 (28.0-62.0) fl RDW Coeff of Fatuma 13 (11.0-15.0) % Plt Count 242 (150-400) K/uL MPV 10.70 (7.40-12.00) fL Neut % (Auto) 86.8 H (48.0-80.0) % Lymph % (Auto) 7.4 L (16.0-40.0) % [place] % (Auto) 5.2 (0.0-15.0) % Eos % (Auto) 0.5 (0.0-7.0) % Baso % (Auto) 0.1 (0.0-1.5) % Neut # (Auto) 17.1 H (1.4-5.7) K/uL Lymph # (Auto) 1.5 (0.6-2.4) K/uL [place] # (Auto) 1.0 H (0.0-0.8) K/uL Eos # (Auto) 0.1 (0.0-0.7) K/uL Baso # (Auto) 0.0 (0.0-0.1) K/uL Nucleated RBC % 0.0 /100WBC Nucleated RBCs # 0 K/uL Lactate (0.20-2.00) mmol/L Sodium 138 (136-148) mmol/L Potassium 3.7 (3.5-5.1) mmol/L Chloride 104 (98-107) mmol/L Carbon Dioxide 24.8 (21.0-32.0) mmol/L BUN 12 (7.0-18.0) mg/dL Creatinine 1.1 (0.8-1.3) mg/dL Est Cr Clr Drug Dosing 67.67 mL/min Estimated GFR (MDRD) > 60.0 ml/min Glucose 144 H (74-106) mg/dL Calcium 9.3 (8.5-10.1) mg/dL Total Bilirubin 0.7 (0.2-1.0) mg/dL AST 21 (15-37) IU/L ALT 29 (14-63) IU/L Alkaline Phosphatase 127 H (46-116) U/L Troponin I 0.051 (0.000-0.056) ng/mL Total Protein 7.1 (6.4-8.2) g/dL Albumin 3.9 (3.4-5.0) g/dL Globulin 3.2 (2.6-4.0) g/dL Albumin/Globulin Ratio 1.2 (0.9-1.6) Lipase 77 (73-393) U/L Urine Color YELLOW Urine Appearance CLEAR Urine pH 7.5 (5.0-8.0) Ur Specific [place] 1.010 (1.001-1.035) Urine Protein 30 H (NEGATIVE) mg/dL Urine Glucose (UA) NEGATIVE (NEGATIVE) mg/dL Urine Ketones TRACE H (NEGATIVE) mg/dL Urine Occult Blood NEGATIVE (NEGATIVE) Urine Nitrite NEGATIVE (NEGATIVE) Urine Bilirubin SMALL H (NEGATIVE) Urine Ictotest NEGATIVE Urine Urobilinogen 4.0 H (<2.0) EU/dL Ur Leukocyte Esterase NEGATIVE (NEGATIVE) Urine RBC 1-2 (0-2/HPF) Urine WBC 0-1 (0-5/HPF) Ur Epithelial Cells RARE (NONE-FEW) Urine Bacteria RARE (NEGATIVE) 12/03/18 Range/Units 11:58 WBC (4.0-11.0) K/uL RBC (4.50-5.90) M/uL Hgb (13.0-17.0) g/dL Hct (38.0-50.0) % MCV (80.0-98.0) fL MCH (27.0-32.0) pg MCHC (31.0-37.0) g/dL RDW Std Deviation (28.0-62.0) fl RDW Coeff of Fatuma (11.0-15.0) % Plt Count (150-400) K/uL MPV (7.40-12.00) fL Neut % (Auto) (48.0-80.0) % Lymph % (Auto) (16.0-40.0) % [place] % (Auto) (0.0-15.0) % Eos % (Auto) (0.0-7.0) % Baso % (Auto) (0.0-1.5) % Neut # (Auto) (1.4-5.7) K/uL Lymph # (Auto) (0.6-2.4) K/uL [place] # (Auto) (0.0-0.8) K/uL Eos # (Auto) (0.0-0.7) K/uL Baso # (Auto) (0.0-0.1) K/uL Nucleated RBC % /100WBC Nucleated RBCs # K/uL Lactate 2.4 H (0.20-2.00) mmol/L Sodium (136-148) mmol/L Potassium (3.5-5.1) mmol/L Chloride (98-107) mmol/L Carbon Dioxide (21.0-32.0) mmol/L BUN (7.0-18.0) mg/dL Creatinine (0.8-1.3) mg/dL Est Cr Clr Drug Dosing mL/min Estimated GFR (MDRD) ml/min Glucose (74-106) mg/dL Calcium (8.5-10.1) mg/dL Total Bilirubin (0.2-1.0) mg/dL AST (15-37) IU/L ALT (14-63) IU/L Alkaline Phosphatase (46-116) U/L Troponin I (0.000-0.056) ng/mL Total Protein (6.4-8.2) g/dL Albumin (3.4-5.0) g/dL Globulin (2.6-4.0) g/dL Albumin/Globulin Ratio (0.9-1.6) Lipase (73-393) U/L Urine Color Urine Appearance Urine pH (5.0-8.0) Ur Specific [place] (1.001-1.035) Urine Protein (NEGATIVE) mg/dL Urine Glucose (UA) (NEGATIVE) mg/dL Urine Ketones (NEGATIVE) mg/dL Urine Occult Blood (NEGATIVE) Urine Nitrite (NEGATIVE) Urine Bilirubin (NEGATIVE) Urine Ictotest Urine Urobilinogen (<2.0) EU/dL Ur Leukocyte Esterase (NEGATIVE) Urine RBC (0-2/HPF) Urine WBC (0-5/HPF) Ur Epithelial Cells (NONE-FEW) Urine Bacteria (NEGATIVE) Result Diagrams: 12/03/18 11:10 12/03/18 11:10 Levy Results Last 24 hrs: Microbiology 12/03/18 11:58 Anaerobic Blood Culture - Final Blood - Venous Imaging Impressions Last 24 hrs: CT scan personally reviewed with Dr. Gandhi. Patient does have a transition point in the mid-abdomen consistent with his history. Maximum diameter is 3.3 cms proximal to a transition point. Moderate amount of stool in the colon. - Problem List (1) Small bowel obstruction SNOMED Code(s): 035777039 ICD Code: K56.609 - UNSP INTESTNL OBST, UNSP TO PARTIAL VERSUS COMPLETE OBST Status: Acute Priority: High Current Visit: Yes (2) Abdominal pain SNOMED Code(s): 49595936 ICD Code: R10.9 - UNSPECIFIED ABDOMINAL PAIN Status: Acute Priority: Medium Current Visit: No Qualifiers: Abdominal location: epigastric Qualified Code(s): R10.13 - Epigastric pain Problem List Initiated/Reviewed/Updated: Yes Orders Last 24hrs: Active Orders 24 hr Category Date Time Status Admission Status [Patient Status] [ADT] Routine ADT 12/03/18 14:38 Active Antiembolic Devices [RC] PER UNIT ROUTINE Care 12/03/18 14:40 Active Cardiac Monitoring [RC] . DIRECTED Care 12/03/18 11:04 Active Communication Order [RC] STAT Care 12/03/18 13:38 Active EKG Documentation Completion [RC] STAT Care 12/03/18 11:00 Active Notify Provider Consults [RC] ASDIRECTED Care 12/03/18 13:54 Active Oxygen Therapy [RC] PRN Care 12/03/18 14:37 Active Pulse Oximetry [RC] INTERMITTENT Care 12/03/18 14:37 Active Up ad Thea [RC] ASDIRECTED Care 12/03/18 14:37 Active Vital Signs [RC] PER UNIT ROUTINE Care 12/03/18 14:37 Active Consult to Physician [CONS] Stat Cons 12/03/18 13:54 Active Nothing Per Oral Diet [DIET] Diet 12/03/18 Breakfast Active Abdomen 2V AP Flat Upright [CR] Routine Exams 12/04/18 08:00 Ordered BASIC METABOLIC PANEL,BMP [CHEM] AM Lab 12/04/18 05:11 Ordered CBC WITH MANUAL DIFF [HEME] AM Lab 12/04/18 05:11 Ordered CULTURE BLOOD [BC] Stat Lab 12/03/18 11:58 Results CULTURE BLOOD [BC] Stat Lab 12/03/18 12:09 Received Lactated Ringers [Ringers, Lactated] 1,000 ml Med 12/03/18 14:45 Ordered IV ASDIRECTED Ondansetron [Zofran] Med 12/03/18 14:39 Ordered 4 mg IVPUSH Q6H PRN Sodium Chloride 0.9% [Normal Saline] 1,000 ml Med 12/03/18 13:28 Active IV STAT Antiembolic Hose [OM.PC] Routine Oth 12/03/18 14:37 Ordered Blood Culture x2 Reflex Set [OM.PC] Stat Oth 12/03/18 11:33 Ordered Sequential Compression Device [OM.PC] Routine Oth 12/03/18 14:37 Ordered Resuscitation Status Routine Resus Stat 12/03/18 14:37 Ordered Medication Orders Sodium Chloride (Normal Saline) 1,000 mls @ 150 mls/hr IV STAT ONE Stop: 12/03/18 20:07 Last Admin: 12/03/18 14:03 Dose: 150 mls/hr Lactated Ringer's (Ringers, Lactated) 1,000 mls @ 150 mls/hr IV ASDIRECTED PATRICK Ondansetron HCl (Zofran) 4 mg IVPUSH Q6H PRN PRN Reason: Nausea/Vomiting Assessment/Plan Comment:: Moderate to high grade partial SBO. Only abdominal incision is a RLQ incision-- no midline incision. Will treat conservatively with IV fluids and bowel rest. Will hold of on analgesics for the time being. Recheck lab and x-ray in am. Will try to get operative reports from [facility] to see why small bowel resection was necessary.
[2018-12-03] MEDS: Lactated Ringers 1,000 ML IV SCH ×2 (16:08→22:50)
[2018-12-03] MEDS ORDERED: Morphine PF 30 MG/30 ML PCA Vial IV SCH (20:30)
--- NOTE | 2018-12-03 21:46 | PCM.SN ---
- Free Text/Narrative Note: Patient states he is feeling better tonight. States he has passed some gas. No BM. No N/V since admission. PE: Lungs clear. Ht RRR. No tachycardia. Abdomen soft, slightly distended but nontender. Bowel sounds active. No high pitched bowel sounds. ASSESSMENT: Partial SBO. PLAN: Continue NPO status. Lab/X-ray ordered for tomorrow. SHAKE MAKER pump with Morphine as ordered.
[2018-12-04] MEDS: Lactated Ringers 1,000 ML IV SCH ×3 (04:53→18:07)
[2018-12-04 06:12] LABS: CHLORIDE,CL 108 mmol/L (98-107); SODIUM,NA 140 mmol/L (136-148)
--- NOTE | 2018-12-04 10:31 | CR ---
INDICATION: Abdominal distention. Evaluate bowel obstruction. COMPARISON: None. TECHNIQUE: One-view Impression : Upper normal caliber small bowel loops in the left mid abdomen. This may be focal ileus or partial small bowel obstruction. Air throughout the colon. Slight scoliosis to the right. Osteoarthritis of both hips. Dictated by Bryce Castellanos MD @ Dec 04 2018 10:28AM Signed by Dr. Bryce Castellanos @ Dec 04 2018 10:30AM
--- NOTE | 2018-12-04 10:40 | PCM.PN ---
- General Info Date of Service: 12/04/18 Admission Dx/Problem (Free Text): Partial SBO Subjective Update: Patient states he is feeling much better. At rest, he rates his abdominal pain at a 0-1. When he is ambulating, he rates it at about a 3. He denies nausea or vomiting. He states he is passing gas and had a watery bowel movement since admission. Functional Status: Reports: Pain Controlled, Ambulating, Urinating - Review of Systems General: Reports: Appetite (States he is hungry.). Denies: Fever, Weakness, Fatigue, Malaise HEENT: Reports: No Symptoms Pulmonary: Denies: Shortness of Breath, Pleuritic Chest Pain, Cough Cardiovascular: Denies: Chest Pain Gastrointestinal: Reports: Diarrhea, Flatus. Denies: Abdominal Pain, Constipation, Decreased Appetite, Difficulty Swallowing, Hematochezia, Melena, Nausea, Vomiting Genitourinary: Denies: Dysuria, Frequency, Burning, Urgency Musculoskeletal: Reports: No Symptoms Skin: Reports: No Symptoms Neurological: Reports: No Symptoms Psychiatric: Reports: No Symptoms - Patient Data Vitals - Most Recent: Last Vital Signs Temp 98.3 F 12/04/18 07:41 Pulse 72 12/04/18 07:41 Resp 16 12/04/18 07:41 BP 116/68 12/04/18 07:41 Pulse Ox 94 L 12/04/18 07:41 Weight - Most Recent: 197 lb 5.019 oz I&O - Last 24 Hours: Intake & Output 12/03/18 12/04/18 12/04/18 19:59 03:59 11:59 Intake Total 0 Balance 0 Lab Results Last 24 Hours: Laboratory Results - last 24 hr 12/03/18 12/03/18 12/03/18 Range/Units 11:10 11:10 11:25 WBC 19.69 H (4.0-11.0) K/uL RBC 5.87 (4.50-5.90) M/uL Hgb 17.7 H (13.0-17.0) g/dL Hct 51.4 H (38.0-50.0) % MCV 87.6 (80.0-98.0) fL MCH 30.2 (27.0-32.0) pg MCHC 34.4 (31.0-37.0) g/dL RDW Std Deviation 42.7 (28.0-62.0) fl RDW Coeff of Fatuma 13 (11.0-15.0) % Plt Count 242 (150-400) K/uL MPV 10.70 (7.40-12.00) fL Neut % (Auto) 86.8 H (48.0-80.0) % Lymph % (Auto) 7.4 L (16.0-40.0) % [place] % (Auto) 5.2 (0.0-15.0) % Eos % (Auto) 0.5 (0.0-7.0) % Baso % (Auto) 0.1 (0.0-1.5) % Neut # (Auto) 17.1 H (1.4-5.7) K/uL Lymph # (Auto) 1.5 (0.6-2.4) K/uL [place] # (Auto) 1.0 H (0.0-0.8) K/uL Eos # (Auto) 0.1 (0.0-0.7) K/uL Baso # (Auto) 0.0 (0.0-0.1) K/uL Neutrophils % (Manual) (48.0-80.0) % Band Neutrophils % % Lymphocytes % (Manual) (16.0-40.0) % Monocytes % (Manual) (0.0-15.0) % Eosinophils % (Manual) (0.0-7.0) % Nucleated RBC % 0.0 /100WBC Absolute Seg Neuts (1.4-5.7) Band Neutrophils # Lymphocytes # (Manual) (0.6-2.4) Monocytes # (Manual) (0.0-0.8) Eosinophils # (Manual) (0.0-0.7) Nucleated RBCs # 0 K/uL Lactate (0.20-2.00) mmol/L Sodium 138 (136-148) mmol/L Potassium 3.7 (3.5-5.1) mmol/L Chloride 104 (98-107) mmol/L Carbon Dioxide 24.8 (21.0-32.0) mmol/L BUN 12 (7.0-18.0) mg/dL Creatinine 1.1 (0.8-1.3) mg/dL Est Cr Clr Drug Dosing 67.67 mL/min Estimated GFR (MDRD) > 60.0 ml/min Glucose 144 H (74-106) mg/dL Calcium 9.3 (8.5-10.1) mg/dL Total Bilirubin 0.7 (0.2-1.0) mg/dL AST 21 (15-37) IU/L ALT 29 (14-63) IU/L Alkaline Phosphatase 127 H (46-116) U/L Troponin I 0.051 (0.000-0.056) ng/mL Total Protein 7.1 (6.4-8.2) g/dL Albumin 3.9 (3.4-5.0) g/dL Globulin 3.2 (2.6-4.0) g/dL Albumin/Globulin Ratio 1.2 (0.9-1.6) Lipase 77 (73-393) U/L Urine Color YELLOW Urine Appearance CLEAR Urine pH 7.5 (5.0-8.0) Ur Specific [place] 1.010 (1.001-1.035) Urine Protein 30 H (NEGATIVE) mg/dL Urine Glucose (UA) NEGATIVE (NEGATIVE) mg/dL Urine Ketones TRACE H (NEGATIVE) mg/dL Urine Occult Blood NEGATIVE (NEGATIVE) Urine Nitrite NEGATIVE (NEGATIVE) Urine Bilirubin SMALL H (NEGATIVE) Urine Ictotest NEGATIVE Urine Urobilinogen 4.0 H (<2.0) EU/dL Ur Leukocyte Esterase NEGATIVE (NEGATIVE) Urine RBC 1-2 (0-2/HPF) Urine WBC 0-1 (0-5/HPF) Ur Epithelial Cells RARE (NONE-FEW) Urine Bacteria RARE (NEGATIVE) 12/03/18 12/03/18 12/04/18 Range/Units 11:58 16:29 05:53 WBC 7.17 (4.0-11.0) K/uL RBC 4.89 (4.50-5.90) M/uL Hgb 14.8 (13.0-17.0) g/dL Hct 43.1 (38.0-50.0) % MCV 88.1 (80.0-98.0) fL MCH 30.3 (27.0-32.0) pg MCHC 34.3 (31.0-37.0) g/dL RDW Std Deviation 43.1 (28.0-62.0) fl RDW Coeff of Fatuma 14 (11.0-15.0) % Plt Count 193 (150-400) K/uL MPV 10.60 (7.40-12.00) fL Neut % (Auto) (48.0-80.0) % Lymph % (Auto) (16.0-40.0) % [place] % (Auto) (0.0-15.0) % Eos % (Auto) (0.0-7.0) % Baso % (Auto) (0.0-1.5) % Neut # (Auto) (1.4-5.7) K/uL Lymph # (Auto) (0.6-2.4) K/uL [place] # (Auto) (0.0-0.8) K/uL Eos # (Auto) (0.0-0.7) K/uL Baso # (Auto) (0.0-0.1) K/uL Neutrophils % (Manual) 68 (48.0-80.0) % Band Neutrophils % 8 % Lymphocytes % (Manual) 21 (16.0-40.0) % Monocytes % (Manual) 1 (0.0-15.0) % Eosinophils % (Manual) 2 (0.0-7.0) % Nucleated RBC % 0.0 /100WBC Absolute Seg Neuts 4.9 (1.4-5.7) Band Neutrophils # 0.6 Lymphocytes # (Manual) 1.5 (0.6-2.4) Monocytes # (Manual) 0.1 (0.0-0.8) Eosinophils # (Manual) 0.1 (0.0-0.7) Nucleated RBCs # K/uL Lactate 2.4 H 1.4 (0.20-2.00) mmol/L Sodium (136-148) mmol/L Potassium (3.5-5.1) mmol/L Chloride (98-107) mmol/L Carbon Dioxide (21.0-32.0) mmol/L BUN (7.0-18.0) mg/dL Creatinine (0.8-1.3) mg/dL Est Cr Clr Drug Dosing mL/min Estimated GFR (MDRD) ml/min Glucose (74-106) mg/dL Calcium (8.5-10.1) mg/dL Total Bilirubin (0.2-1.0) mg/dL AST (15-37) IU/L ALT (14-63) IU/L Alkaline Phosphatase (46-116) U/L Troponin I (0.000-0.056) ng/mL Total Protein (6.4-8.2) g/dL Albumin (3.4-5.0) g/dL Globulin (2.6-4.0) g/dL Albumin/Globulin Ratio (0.9-1.6) Lipase (73-393) U/L Urine Color Urine Appearance Urine pH (5.0-8.0) Ur Specific [place] (1.001-1.035) Urine Protein (NEGATIVE) mg/dL Urine Glucose (UA) (NEGATIVE) mg/dL Urine Ketones (NEGATIVE) mg/dL Urine Occult Blood (NEGATIVE) Urine Nitrite (NEGATIVE) Urine Bilirubin (NEGATIVE) Urine Ictotest Urine Urobilinogen (<2.0) EU/dL Ur Leukocyte Esterase (NEGATIVE) Urine RBC (0-2/HPF) Urine WBC (0-5/HPF) Ur Epithelial Cells (NONE-FEW) Urine Bacteria (NEGATIVE) 12/04/18 Range/Units 05:53 WBC (4.0-11.0) K/uL RBC (4.50-5.90) M/uL Hgb (13.0-17.0) g/dL Hct (38.0-50.0) % MCV (80.0-98.0) fL MCH (27.0-32.0) pg MCHC (31.0-37.0) g/dL RDW Std Deviation (28.0-62.0) fl RDW Coeff of Fatuma (11.0-15.0) % Plt Count (150-400) K/uL MPV (7.40-12.00) fL Neut % (Auto) (48.0-80.0) % Lymph % (Auto) (16.0-40.0) % [place] % (Auto) (0.0-15.0) % Eos % (Auto) (0.0-7.0) % Baso % (Auto) (0.0-1.5) % Neut # (Auto) (1.4-5.7) K/uL Lymph # (Auto) (0.6-2.4) K/uL [place] # (Auto) (0.0-0.8) K/uL Eos # (Auto) (0.0-0.7) K/uL Baso # (Auto) (0.0-0.1) K/uL Neutrophils % (Manual) (48.0-80.0) % Band Neutrophils % % Lymphocytes % (Manual) (16.0-40.0) % Monocytes % (Manual) (0.0-15.0) % Eosinophils % (Manual) (0.0-7.0) % Nucleated RBC % /100WBC Absolute Seg Neuts (1.4-5.7) Band Neutrophils # Lymphocytes # (Manual) (0.6-2.4) Monocytes # (Manual) (0.0-0.8) Eosinophils # (Manual) (0.0-0.7) Nucleated RBCs # K/uL Lactate (0.20-2.00) mmol/L Sodium 140 (136-148) mmol/L Potassium 3.9 (3.5-5.1) mmol/L Chloride 108 H (98-107) mmol/L Carbon Dioxide 25.2 (21.0-32.0) mmol/L BUN 11 (7.0-18.0) mg/dL Creatinine 1.0 (0.8-1.3) mg/dL Est Cr Clr Drug Dosing 74.43 mL/min Estimated GFR (MDRD) > 60.0 ml/min Glucose 125 H (74-106) mg/dL Calcium 8.4 L (8.5-10.1) mg/dL Total Bilirubin (0.2-1.0) mg/dL AST (15-37) IU/L ALT (14-63) IU/L Alkaline Phosphatase (46-116) U/L Troponin I (0.000-0.056) ng/mL Total Protein (6.4-8.2) g/dL Albumin (3.4-5.0) g/dL Globulin (2.6-4.0) g/dL Albumin/Globulin Ratio (0.9-1.6) Lipase (73-393) U/L Urine Color Urine Appearance Urine pH (5.0-8.0) Ur Specific [place] (1.001-1.035) Urine Protein (NEGATIVE) mg/dL Urine Glucose (UA) (NEGATIVE) mg/dL Urine Ketones (NEGATIVE) mg/dL Urine Occult Blood (NEGATIVE) Urine Nitrite (NEGATIVE) Urine Bilirubin (NEGATIVE) Urine Ictotest Urine Urobilinogen (<2.0) EU/dL Ur Leukocyte Esterase (NEGATIVE) Urine RBC (0-2/HPF) Urine WBC (0-5/HPF) Ur Epithelial Cells (NONE-FEW) Urine Bacteria (NEGATIVE) Levy Results Last 24 Hours: Microbiology 12/03/18 11:58 Anaerobic Blood Culture - Final Blood - Venous Med Orders - Current: Current Medications Lactated Ringer's (Ringers, Lactated) 1,000 mls @ 150 mls/hr IV ASDIRECTED [facility] Last Admin: 12/04/18 04:53 Dose: 150 mls/hr Morphine Sulfate (Morphine Supervisor Ditching 30 Mg In 30 Ml) 30 mg IV ASDIRECTED [facility]; Protocol Last Admin: 12/03/18 20:17 Dose: 30 mg Ondansetron HCl (Zofran) 4 mg IVPUSH Q6H PRN PRN Reason: Nausea/Vomiting Discontinued Medications Sodium Chloride (Normal Saline) 1,000 mls @ 999 mls/hr IV STAT ONE Stop: 12/03/18 12:02 Last Admin: 12/03/18 11:19 Dose: 999 mls/hr Sodium Chloride (Normal Saline) 1,000 mls @ 150 mls/hr IV STAT ONE Stop: 12/03/18 20:07 Last Admin: 12/03/18 14:03 Dose: 150 mls/hr Iopamidol (Isovue Multipack-370 (76%)) 100 ml IVPUSH ONETIME STA Stop: 12/03/18 12:32 Last Admin: 12/03/18 12:42 Dose: 100 ml Ketorolac Tromethamine (Toradol) 30 mg IVPUSH ONETIME ONE Stop: 12/03/18 11:04 Last Admin: 12/03/18 11:19 Dose: 30 mg Nicotine (Habitrol) 21 mg TRDERM ONETIME ONE Stop: 12/03/18 13:43 Last Admin: 12/03/18 14:03 Dose: 21 mg Ondansetron HCl (Zofran) 4 mg IVPUSH ONETIME ONE Stop: 12/03/18 11:03 Last Admin: 12/03/18 11:19 Dose: 4 mg - Exam Quality Assessment: No: Supplemental Oxygen General: Alert, Oriented, Cooperative, No Acute Distress HEENT: Pupils Equal, Pupils Reactive. No: Scleral Icterus Neck: Supple, Trachea Midline Lungs: Clear to Auscultation, Normal Respiratory Effort Cardiovascular: Regular Rate, Regular Rhythm, No Murmurs GI/Abdominal Exam: Normal Bowel Sounds, Soft, Non-Tender, No Distention. No: Guarding, Rigid, Rebound (Male) Exam: No Hernia Back Exam: Normal Inspection Extremities: Normal Inspection, Normal Range of Motion, Non-Tender, No Pedal Edema Skin: Warm, Dry, Intact Neurological: No New Focal Deficit Psy/Mental Status: Alert, Normal Affect, Normal Mood - Problem List & Annotations (1) Small bowel obstruction SNOMED Code(s): 927411810 Code(s): K56.609 - UNSP INTESTNL OBST, UNSP TO PARTIAL VERSUS COMPLETE OBST Status: Acute Priority: High Current Visit: Yes (2) Abdominal pain SNOMED Code(s): 95461427 Code(s): R10.9 - UNSPECIFIED ABDOMINAL PAIN Status: Acute Priority: Medium Current Visit: No Qualifiers: Abdominal location: epigastric Qualified Code(s): R10.13 - Epigastric pain - Problem List Review Problem List Initiated/Reviewed/Updated: Yes - My Orders Last 24 Hours: My Active Orders 12/03/18 14:37 Oxygen Therapy [RC] PRN Pulse Oximetry [RC] INTERMITTENT Up ad Thea [RC] ASDIRECTED Vital Signs [RC] PER UNIT ROUTINE Antiembolic Hose [OM.PC] Routine Sequential Compression Device [OM.PC] Routine Resuscitation Status Routine 12/03/18 14:38 Admission Status [Patient Status] [ADT] Routine 12/03/18 14:39 Ondansetron [Zofran] 4 mg IVPUSH Q6H PRN 12/03/18 14:40 Antiembolic Devices [RC] PER UNIT ROUTINE 12/03/18 14:45 Lactated Ringers [Ringers, Lactated] 1,000 ml IV ASDIRECTED 12/03/18 20:30 Morphine PF [Morphine [employer] 30 MG in 30 ML] 30 mg IV ASDIRECTED 12/04/18 Lunch Full Liquid Diet [DIET] - Assessment Assessment:: Patient is markedly improved. He is hungry and would like to eat. He has used a minimal amount of morphine from his [employer] pump since it was started last night. His last dose was about 6:00 this morning. His labs are markedly improved. His white count is in the normal range, although still has a few(8) bands. His lactate is now in the normal range at 1.4. - Plan Plan:: We'll start him on a full liquid diet today. If he tolerates this, we will consider increasing his diet tomorrow and possibly discharging him.
[2018-12-04 22:51] VITALS: BP 139/79
--- NOTE | 2018-12-05 10:31 | PCM.DCSUM1 ---
Discharge Summary - Hospital Course Free Text/Narrative:: Patient is a 58-year-old gentleman who presented to the emergency room with abdominal pain, nausea and vomiting. CT scan of the abdomen did suggest a small bowel obstruction. He was admitted for management of his small bowel obstruction. Initially it was elected to manage this conservatively and he did respond to conservative management. Within 24 hours he was passing gas and having bowel movements. He has continued to do well and is tolerating an oral diet without abdominal pain, nausea or vomiting. He continues to pass gas and have bowel movements. HPI Initial Comments: See the initial history and physical from his admission time. - Discharge Data Discharge Date: 12/05/18 Discharge Disposition: Home, Self-Care 01 Condition: Stable - Discharge Diagnosis/Problem(s) (1) Small bowel obstruction SNOMED Code(s): 143588245 ICD Code: K56.609 - UNSP INTESTNL OBST, UNSP TO PARTIAL VERSUS COMPLETE OBST Status: Acute Priority: High Current Visit: Yes (2) Abdominal pain SNOMED Code(s): 13916458 ICD Code: R10.9 - UNSPECIFIED ABDOMINAL PAIN Status: Acute Priority: Medium Current Visit: No Qualifiers: Abdominal location: epigastric Qualified Code(s): R10.13 - Epigastric pain - Patient Summary/Data Consults: Consultations 12/03/18 13:54 Consult to Physician [CONS] Stat - Patient Instructions Diet: Mechanical Soft (For 48 hours, then diet as tolerated) Activity: As Tolerated Driving: May Drive Today Showering/Bathing: May Shower Notify Provider of: Fever, Increased Pain, Nausea and/or Vomiting Other/Special Instructions: See Dr. Boss in 2-3 weeks. Please call the office tomorrow to schedule that appointment. - Discharge Plan Home Medications: Home Meds . [No Known Home Meds] 12/03/18 [History] Patient Handouts: Small Bowel Obstruction, [id number], Small Bowel Series, Care After, [id number] Forms: ED Department Discharge Referrals: PCP,Unknown [Primary Care Provider] - Too Boss MD [Physician] - - Discharge Summary/Plan Comment DC Time >30 min.: No Discharge Summary/Plan Comment: Patient will be discharged today. He was instructed to stay on a full liquid to soft diet for 48 hours. He may return to work tomorrow. He is to call my office tomorrow and make arrangements to see me there in 2-3 weeks. - General Info Date of Service: 12/05/18 Admission Dx/Problem (Free Text: Small bowel obstruction Subjective Update: Patient states he is feeling much better. At rest, he rates his abdominal pain at a 0-1. When he is ambulating, he rates it at about a 3. He denies nausea or vomiting. He states he is passing gas and had a watery bowel movement since admission. Functional Status: Reports: Pain Controlled, Tolerating Diet, Ambulating, Urinating. Denies: New Symptoms - Review of Systems General: Denies: Fever, Weakness, Fatigue, Malaise HEENT: Reports: No Symptoms Pulmonary: Denies: Shortness of Breath, Pleuritic Chest Pain, Cough Cardiovascular: Denies: Chest Pain, Palpitations Gastrointestinal: Reports: Diarrhea, Flatus. Denies: Abdominal Pain, Constipation, Decreased Appetite, Hematochezia, Melena, Nausea, Vomiting Genitourinary: Denies: Dysuria, Frequency, Burning, Pain Musculoskeletal: Reports: No Symptoms Skin: Reports: No Symptoms Neurological: Denies: Confusion, Dizziness Psychiatric: Denies: Confusion, Depression, Anxiety - Patient Data Vitals - Most Recent: Last Vital Signs Temp 98.3 F 12/04/18 22:50 Pulse 72 12/04/18 22:50 Resp 16 12/04/18 22:50 BP 139/79 12/04/18 22:50 Pulse Ox 94 L 12/04/18 22:50 Weight - Most Recent: 197 lb 5.019 oz I&O - Last 24 hours: Intake & Output 12/04/18 12/05/18 12/05/18 19:59 03:59 11:59 Intake Total 1930 Balance 1930 ALBERTO Results - Last 24 hrs: Microbiology 12/03/18 12:09 Aerobic Blood Culture - Preliminary Blood - Venous - Lab Draw NO GROWTH AFTER 1 DAY Anaerobic Blood Culture - Preliminary NO GROWTH AFTER 1 DAY 12/03/18 11:58 Aerobic Blood Culture - Preliminary Blood - Venous NO GROWTH AFTER 1 DAY Anaerobic Blood Culture - Final Med Orders - Current: Current Medications Lactated Ringer's (Ringers, Lactated) 1,000 mls @ 150 mls/hr IV ASDIRECTED PATRICK Last Admin: 12/04/18 18:07 Dose: 150 mls/hr Morphine Sulfate (Morphine Plastic Joint Maker 30 Mg In 30 Ml) 30 mg IV ASDIRECTED [facility]; Protocol Last Admin: 12/03/18 20:17 Dose: 30 mg Ondansetron HCl (Zofran) 4 mg IVPUSH Q6H PRN PRN Reason: Nausea/Vomiting Discontinued Medications Sodium Chloride (Normal Saline) 1,000 mls @ 999 mls/hr IV STAT ONE Stop: 12/03/18 12:02 Last Admin: 12/03/18 11:19 Dose: 999 mls/hr Sodium Chloride (Normal Saline) 1,000 mls @ 150 mls/hr IV STAT ONE Stop: 12/03/18 20:07 Last Admin: 12/03/18 14:03 Dose: 150 mls/hr Iopamidol (Isovue Multipack-370 (76%)) 100 ml IVPUSH ONETIME STA Stop: 12/03/18 12:32 Last Admin: 12/03/18 12:42 Dose: 100 ml Ketorolac Tromethamine (Toradol) 30 mg IVPUSH ONETIME ONE Stop: 12/03/18 11:04 Last Admin: 12/03/18 11:19 Dose: 30 mg Nicotine (Habitrol) 21 mg TRDERM ONETIME ONE Stop: 12/03/18 13:43 Last Admin: 12/03/18 14:03 Dose: 21 mg Ondansetron HCl (Zofran) 4 mg IVPUSH ONETIME ONE Stop: 12/03/18 11:03 Last Admin: 12/03/18 11:19 Dose: 4 mg - Exam General: Reports: Alert, Oriented, Cooperative, No Acute Distress HEENT: Reports: Pupils Equal, Pupils Reactive. Denies: Scleral Icterus Neck: Reports: Supple Lungs: Reports: Clear to Auscultation, Normal Respiratory Effort Cardiovascular: Reports: Regular Rate, Regular Rhythm, No Murmurs. Denies: Tachycardia GI/Abdominal Exam: Normal Bowel Sounds, Soft, Non-Tender, No Mass. No: Distended, Guarding, Rigid, Rebound (Male) Exam: No Hernia Rectal (Males) Exam: Deferred Back Exam: Reports: Normal Inspection Extremities: Normal Inspection, Non-Tender Skin: Reports: Warm, Dry, Intact Neurological: Reports: No New Focal Deficit Psy/Mental Status: Reports: Alert, Normal Affect, Normal Mood
== END 2018-12-05 11:03 | disposition home or self-care (01) | DRG 247 ==
LOC: MW.ED 10:46 → MW.MS 15:21
PROVIDERS: ADMIT Surgery; ATTEND Surgery
DX: K56.600 Partial intestinal obstruction, unspecified as to cause (principal); Z90.49 Acquired absence of other specified parts of digestive tract; F17.210 Nicotine dependence, cigarettes, uncomplicated
CPT/HCPCS: 36415; 71045; 71045-26; 74019; 74019-26; 74177; 74177-26; 80048; 80053; 81001; 83605; 83690; 84484; 85007; 85025; 85027; 87040; 93005; 96361; 96374; 96375; 99285-25; A9270-GY; J1885; J2274; J2405; J7040; J7120; Q9967

== ENCOUNTER 2019-01-02 16:19 | Emergency (ER) | payer BC ==
[2019-01-02] MEDS ORDERED: Ondansetron 4 MG/2 ML SDV IVPUSH ONE (16:32)
[2019-01-02] MEDS ORDERED: Ketorolac 30 MG/ML SDV IVPUSH ONE (16:32)
[2019-01-02] MEDS ORDERED: Sodium Chloride 0.9% 1,000 ML IV ONE (16:32)
--- NOTE | 2019-01-02 16:33 | EDM.PDOC ---
<Rolan Cuevas - Last Filed: 01/02/19 18:32> ED HPI GENERAL MEDICAL PROBLEM - General Chief Complaint: Abdominal Pain Stated Complaint: STOMACH PAIN Time Seen by Provider: 01/02/19 16:33 Source of Information: Reports: Patient - History of Present Illness INITIAL COMMENTS - FREE TEXT/NARRATIVE: HISTORY AND PHYSICAL: History of present illness: [Patient presents with 8 out of 10 right upper and lower quadrant pain he has history of previous appendectomy pain began after eating taco's today, also had a recent admission for partial bowel obstruction and has been following with Dr. Boss Has been relatively pain-free since his hospital stay No fever nausea vomiting chills sweats no chest pain shortness breath headache dizziness or palpitation no bowel or urine symptoms ] Review of systems: As per history of present illness and below otherwise all systems reviewed and negative. Past medical history: As per history of present illness and as reviewed below otherwise noncontributory. Surgical history: As per history of present illness and as reviewed below otherwise noncontributory. Social history: No reported history of drug or alcohol abuse. Family history: As per history of present illness and as reviewed below otherwise noncontributory. Physical exam: HEENT: Atraumatic, normocephalic, pupils reactive, negative for conjunctival pallor or scleral icterus, mucous membranes moist, throat clear, neck supple, nontender, trachea midline. Lungs: Clear to auscultation, breath sounds equal bilaterally, chest nontender. Heart: S1S2, regular, negative for clicks, rubs, or JVD. Abdomen: Soft, nondistended, tender in right upper and right lower quadrant Negative for masses or hepatosplenomegaly. Negative for costovertebral tenderness. Pelvis: Stable nontender. Genitourinary: Deferred. Rectal: Deferred. Extremities: Atraumatic, negative for cords or calf pain. Neurovascular unremarkable. Neuro: Awake, alert, oriented. Cranial nerves II through XII unremarkable. Cerebellum unremarkable. Motor and sensory unremarkable throughout. Exam nonfocal. Diagnostics: [CBC CMP UA troponin lipase Even pelvis with contrast Abdomen limited ultrasound ] Therapeutics: [ normal saline Zofran Toradol Morphine 4 mg IV ] Impression: [ abdominal pain -resolved at current] Definitive disposition and diagnosis as appropriate pending reevaluation and review of above. Right Abdomen Pain Score (Numeric/FACES): 10 - Related Data Allergies Allergy/AdvReac Type Severity Reaction Status Date / Time No Known Allergies Allergy Verified 01/02/19 16:32 Home Meds: Home Meds . [No Known Home Meds] 12/03/18 [History] Past Medical History - Past Health History Medical/Surgical History: Denies Medical/Surgical History HEENT History: Reports: None, Other (See Below) Other HEENT History: wears glasses Cardiovascular History: Reports: None Respiratory History: Reports: None Gastrointestinal History: Reports: Other (See Below) Other Gastrointestinal History: ulcer Genitourinary History: Reports: None Musculoskeletal History: Reports: None Neurological History: Reports: None Psychiatric History: Reports: None Endocrine/Metabolic History: Reports: None Hematologic History: Reports: None Immunologic History: Reports: None Oncologic (Cancer) History: Reports: None Dermatologic History: Reports: None - Infectious Disease History Infectious Disease History: Reports: None - Past Surgical History Head Surgeries/Procedures: Reports: None GI Surgical History: Reports: Appendectomy Other GI Surgeries/Procedures: Also states he has had a small bowel resection for "perforation". Isn't exactly sure what was done. Social & Family History - Family History Family Medical History: Noncontributory - Caffeine Use Caffeine Use: Reports: Soda Course - Vital Signs Last Recorded V/S: Last Vital Signs Temp Pulse 56 L 01/02/19 20:07 Resp 16 01/02/19 20:07 BP 140/86 01/02/19 20:07 Pulse Ox 96 01/02/19 20:07 - Orders/Labs/Meds Labs: Laboratory Tests 01/02/19 01/02/19 01/02/19 Range/Units 16:54 16:54 17:40 WBC 14.16 H (4.0-11.0) K/uL RBC 5.43 (4.50-5.90) M/uL Hgb 16.5 (13.0-17.0) g/dL Hct 48.2 (38.0-50.0) % MCV 88.8 (80.0-98.0) fL MCH 30.4 (27.0-32.0) pg MCHC 34.2 (31.0-37.0) g/dL RDW Std Deviation 45.1 (28.0-62.0) fl RDW Coeff of Fatuma 14 (11.0-15.0) % Plt Count 235 (150-400) K/uL MPV 10.90 (7.40-12.00) fL Neut % (Auto) 55.9 (48.0-80.0) % Lymph % (Auto) 36.1 (16.0-40.0) % [place] % (Auto) 5.2 (0.0-15.0) % Eos % (Auto) 2.5 (0.0-7.0) % Baso % (Auto) 0.3 (0.0-1.5) % Neut # (Auto) 7.9 H (1.4-5.7) K/uL Lymph # (Auto) 5.1 H (0.6-2.4) K/uL [place] # (Auto) 0.7 (0.0-0.8) K/uL Eos # (Auto) 0.4 (0.0-0.7) K/uL Baso # (Auto) 0.0 (0.0-0.1) K/uL Nucleated RBC % 0.0 /100WBC Nucleated RBCs # 0 K/uL Sodium 141 (136-148) mmol/L Potassium 3.6 (3.5-5.1) mmol/L Chloride 104 (98-107) mmol/L Carbon Dioxide 24.8 (21.0-32.0) mmol/L BUN 9 (7.0-18.0) mg/dL Creatinine 1.0 (0.8-1.3) mg/dL Est Cr Clr Drug Dosing 74.43 mL/min Estimated GFR (MDRD) > 60.0 ml/min Glucose 130 H (74-106) mg/dL Calcium 9.5 (8.5-10.1) mg/dL Total Bilirubin 0.4 (0.2-1.0) mg/dL AST 14 L (15-37) IU/L ALT 27 (14-63) IU/L Alkaline Phosphatase 109 (46-116) U/L Troponin I < 0.050 (0.000-0.056) ng/mL Total Protein 7.3 (6.4-8.2) g/dL Albumin 4.2 (3.4-5.0) g/dL Globulin 3.1 (2.6-4.0) g/dL Albumin/Globulin Ratio 1.4 (0.9-1.6) Lipase 113 (73-393) U/L Urine Color YELLOW Urine Appearance SLT CLOUDY Urine pH 7.5 (5.0-8.0) Ur Specific [place] 1.015 (1.001-1.035) Urine Protein NEGATIVE (NEGATIVE) mg/dL Urine Glucose (UA) NEGATIVE (NEGATIVE) mg/dL Urine Ketones NEGATIVE (NEGATIVE) mg/dL Urine Occult Blood TRACE-INTACT H (NEGATIVE) Urine Nitrite NEGATIVE (NEGATIVE) Urine Bilirubin NEGATIVE (NEGATIVE) Urine Urobilinogen 0.2 (<2.0) EU/dL Ur Leukocyte Esterase NEGATIVE (NEGATIVE) Urine RBC 0-3 (0-2/HPF) Urine WBC 0-1 (0-5/HPF) Ur Epithelial Cells RARE (NONE-FEW) Urine Bacteria RARE (NEGATIVE) Meds: Medications Discontinued Medications Generic Name Dose Route Start Last Admin Trade Name Freq PRN Reason Stop Dose Admin Sodium Chloride 1,000 mls @ 999 mls/hr 01/02/19 16:32 01/02/19 16:49 Normal Saline IV 01/02/19 17:32 999 mls/hr STAT ONE Administration Iopamidol 100 ml 01/02/19 18:06 01/02/19 18:06 Isovue-370 (76%) IVPUSH 01/02/19 18:07 100 ml ONETIME ONE Administration Ketorolac Tromethamine 30 mg 01/02/19 16:32 01/02/19 16:49 Toradol IVPUSH 01/02/19 16:33 30 mg ONETIME ONE Administration Morphine Sulfate 4 mg 01/02/19 16:55 01/02/19 17:00 Morphine IVPUSH 01/02/19 16:56 4 mg ONETIME ONE Administration Ondansetron HCl 8 mg 01/02/19 16:32 01/02/19 16:50 Zofran IVPUSH 01/02/19 16:33 8 mg ONETIME ONE Administration Departure - Departure Disposition: Home, Self-Care 01 Clinical Impression: Abdominal pain Qualifiers: Abdominal location: epigastric Qualified Code(s): R10.13 - Epigastric pain - Discharge Information Referrals: PCP,Unknown [Primary Care Provider] - Forms: ED Department Discharge Additional Instructions: The following information is given to patients seen in the emergency department who are being discharged to home. This information is to outline your options for follow-up care. We provide all patients seen in our emergency department with a follow-up referral. The need for follow-up, as well as the timing and circumstances, are variable depending upon the specifics of your emergency department visit. If you don't have a primary care physician on staff, we will provide you with a referral. We always advise you to contact your personal physician following an emergency department visit to inform them of the circumstance of the visit and for follow-up with them and/or the need for any referrals to a consulting specialist. The emergency department will also refer you to a specialist when appropriate. This referral assures that you have the opportunity for followup care with a specialist. All of these measure are taken in an effort to provide you with optimal care, which includes your followup. Under all circumstances we always encourage you to contact your private physician who remains a resource for coordinating your care. When calling for followup care, please make the office aware that this follow-up is from your recent emergency room visit. If for any reason you are refused follow-up, please contact the [facility] emergency department at and asked to speak to the emergency department charge nurse. [facility] Specialty Care - General Surgery Professional Building [address] [place] [address], [address] [place] [address] Clear liquids 24 hours follow-up Gen. surgery above called to schedule an appointment return as needed as discussed <Gómez Ghotra - Last Filed: 01/02/19 20:24> ED ROS GENERAL - Review of Systems Review Of Systems: ROS reveals no pertinent complaints other than HPI. ED EXAM, GENERAL - Physical Exam Exam: See Below (See dictation) Departure - Departure Time of Disposition: 20:22 Condition: Good
[2019-01-02] MEDS ORDERED: Morphine 4 MG/ML Syringe IVPUSH ONE (16:55)
[2019-01-02 17:28] LABS: CHLORIDE,CL 104 mmol/L (98-107); SODIUM,NA 141 mmol/L (136-148)
[2019-01-02] MEDS ORDERED: Iopamidol 755 Mg/ML 100 ML Bottle IVPUSH ONE (18:06)
--- NOTE | 2019-01-02 18:22 | CT ---
INDICATION: Right upper quadrant pain for a few hours. TECHNIQUE: CT Abdomen and pelvis with i.v. contrast. Coronal and sagittal reformats were obtained. CONTRAST: 100 mL Isovue 370 COMPARISON: None FINDINGS: Lower chest: There are 2 small adjacent nodules present within the right middle lobe measuring 6-7 mm. A 5 mm nodule is present in the lingula. There is a 4-5 mm nodule in the anterior subpleural right lower lobe. Liver: There is a small focus of increased enhancement measuring 5 mm present in the left medial segment of the liver. Moderate periportal edema is present which may be due to aggressive intravenous hydration. Spleen: Unremarkable. Pancreas: Unremarkable. Gallbladder: Unremarkable. Kidney: Unremarkable. No kidney or ureteral stones or obstruction seen. Adrenal: Unremarkable. Bowel: Mild distention of the stomach is noted, likely from recent meal. The appendix is not visualized. Vascular: Unremarkable. Lymph: Unremarkable. Peritoneum: Unremarkable. No pneumoperitoneum is seen. No significant ascites is noted. Pelvis: Unremarkable. Soft tissue: Unremarkable. Bone: Mild dextroscoliosis of the lower lumbar spine is noted. IMPRESSIONS: 1. There is a small focus of increased enhancement measuring 5 mm present in the left medial segment of the liver. Further characterization follow-up with outpatient MRI is recommended, especially if the patient has a history of chronic liver disease or primary malignancy. 2. Small sub centimeter pulmonary nodules are noted bilaterally. Initial follow-up CT in 3-6 months is recommended in accordance with the 2017 Revised Fleischner Society Recommendations. Dictated by Edenilson Angeles MD @ 01/02/2019 6:19:38 PM Please note that all CT scans at this facility use dose modulation, iterative reconstruction, and/or weight-based dosing when appropriate to reduce radiation dose to as low as reasonably achievable. Dictated by: Edenilson Angeles MD @ 01/02/2019 18:19:50 (Electronically Signed)
--- NOTE | 2019-01-02 20:04 | US ---
INDICATION: Right upper quadrant pain TECHNIQUE: Ultrasound abdomen limited. Sonographic images of the right upper quadrant were obtained using hoffman-scale and color Doppler images. COMPARISON: CT abdomen pelvis from same date FINDINGS: Liver: Normal in size and echotexture. Ill-defined 1.9 x 2.6 cm focus of nonvascular decreased echogenicity within the mid liver. No intrahepatic biliary dilatation. Gallbladder: No stones or sludge. Normal wall thickness. No pericholecystic fluid. Positive sonographic Elizondo`s sign. Common bile duct: 5 mm. Pancreas: Normal. Right kidney: 10.6 cm in length. Normal echotexture and cortex. No masses, stones, or hydronephrosis. IMPRESSION: Although there is a positive sonographic Elizondo`s sign, there is no evidence for acute cholecystitis. Ill-defined focus of nonvascular decreased echogenicity within the mid liver. This likely represents an area of focal fatty sparing. Dictated by Violette Baca MD @ Jan 02 2019 7:55PM Signed by Dr. Violette Baca @ Jan 02 2019 8:02PM
[2019-01-02 20:44] VITALS: BP 149/93
== END 2019-01-02 20:45 | disposition home or self-care (01) ==
LOC: MW.ED 16:19
DX: R10.13 Epigastric pain (principal)
CPT/HCPCS: 74177; 76705; 80053; 81001; 83690; 84484; 85025; 96361; 96374; 96375; 99284; J1885; J2270; J2405; J7040; Q9967; 99283

== ENCOUNTER 2019-01-05 03:25 | Observation (INO) | payer BC ==
[2019-01-05] MEDS ORDERED: Dicyclomine 10 MG Cap PO ONE (03:47)
[2019-01-05] MEDS ORDERED: traMADol 50 MG Tab PO ONE (03:47)
--- NOTE | 2019-01-05 03:55 | EDM.PDOC ---
ED HPI GENERAL MEDICAL PROBLEM - General Chief Complaint: Abdominal Pain Stated Complaint: PER PT, HE FEELS A BUMP IN HIS STOMACH Time Seen by Provider: 01/05/19 03:38 - History of Present Illness INITIAL COMMENTS - FREE TEXT/NARRATIVE: HISTORY AND PHYSICAL: History of present illness: The patient is a 58-year-old male who has been followed by Dr. Boss in the clinic as well as been seen in the ED several times for abdominal pain and presents tonight with the same. The patient was initially admitted to the hospital December 03 through December 05 or a partial small bowel obstruction which resolved spontaneously and he was closely followed up by Dr. Boss in the clinic. He had an upper GI with small bowel follow-through on December 30 which only showed some mild GE reflux but otherwise unremarkable study. The patient was seen in the emergency department here on Thursday, January 02, with complaints of abdominal pain again and had a full workup consisting of labs abdominal ultrasound and CT scan of the abdomen and pelvis. I reviewed all these testing results. Dr. Boss was contacted on Thursday and the patient is currently scheduled to have a colonoscopy done on Thursday, 2 days from now, to complete this workup for this ill-defined pain. The patient says that he has had continued pain since Thursday in the right upper abdominal area and he is concerned because he thought he felt a small bump when he pushed on his abdomen. He's had no fever chills nausea or vomiting but he has had anorexia and has not been eating very much due to no appetite. He says he's been hydrating and passing his urine without difficulty. He says he's been having normal bowel movements but today's with a little bit hard but they're not black or bloody and there is no diarrhea. Patient is not taking anything for pain and he says he did not contact Dr. Boss last 2 days to discuss the persistent abdominal pain that he is having. He says there is nothing new or different about the pain and it is in the same location as all of his prior visits. The patient only has a surgical abdominal history of an appendectomy. Review of systems: As per history of present illness and below otherwise all systems reviewed and negative. Past medical history: As per history of present illness and as reviewed below otherwise noncontributory. Surgical history: As per history of present illness and as reviewed below otherwise noncontributory. Social history: No reported history of drug or alcohol abuse. Family history: As per history of present illness and as reviewed below otherwise noncontributory. Physical exam: General: Well-developed well-nourished man who is nontoxic and ambulated into the ED without assistance. Vital signs are noted by me HEENT: Atraumatic, normocephalic, negative for conjunctival pallor or scleral icterus, mucous membranes moist, throat clear, neck supple, nontender, trachea midline. Lungs: Clear to auscultation, breath sounds equal bilaterally, chest nontender. Heart: S1S2, regular rate and rhythm no overt murmurs Abdomen: Soft, nondistended, bowel sounds are slightly hypoactive and there is some tympany on percussion of the left side of the abdomen. There is some tenderness appreciated in the right upper quadrant with some voluntary guarding but no involuntary guarding or rebound. There is no discrete mass appreciated in the region of the patient is indicating in the right upper quadrant as the area of his concern. Negative for masses or hepatosplenomegaly. Negative for costovertebral tenderness. Pelvis: Stable nontender. Genitourinary: Deferred. Rectal: Deferred. Extremities: Atraumatic, negative for cords or calf pain. Neurovascular unremarkable. Neuro: Awake, alert, oriented. Cranial nerves II through XII unremarkable. Cerebellum unremarkable. Motor and sensory unremarkable throughout. Exam nonfocal. Diagnostics: CBC CMP amylase lipase abdominal x-rays with chest lactic acid CT scan of the abdomen and pelvis will be repeated as the abdominal x-rays only show retained stool in the ascending colon and the patient has elevated white blood cell count Therapeutics: Tramadol Bentyl IV fluids morphine Zofran and Zosyn All of the prior testing, CT scan ultrasound of Thursday as well as the upper GI with small bowel follow-through of December 30 were reviewed by me. On the CT scan there was no evidence of any abdominal wall defect or hernia appreciated nor any masses appreciated. The patient's x-rays only show retained stool in the ascending colon as well as residual contrast from a prior upper GI study that was performed on December 30. In light of his elevated WBC count of 21.36, which is elevated from 14.16 just 3 days ago, I will have to repeat his CT scan and discuss this case with Dr. Isbell 0605: Case was discussed with Dr. Isbell who is aware of the CT scan findings and would like the patient to be admitted to medicine with a consult to Dr. Boss. She would like me to give a dose of Zosyn maintenance IV fluids and she will tell Dr. Boss about his patient who will see him this morning. 0620: Case was discussed with Dr. Otero who agrees with observation admission Impression: Acute cholecystitis Definitive disposition and diagnosis as appropriate pending reevaluation and review of above. Right Upper Abdomen Pain Score (Numeric/FACES): 7 - Related Data Allergies Allergy/AdvReac Type Severity Reaction Status Date / Time No Known Allergies Allergy Verified 01/05/19 03:31 Home Meds: Home Meds . [No Known Home Meds] 01/05/19 [History] Past Medical History - Past Health History Medical/Surgical History: Denies Medical/Surgical History HEENT History: Reports: None, Other (See Below) Other HEENT History: wears glasses Cardiovascular History: Reports: None Respiratory History: Reports: None Gastrointestinal History: Reports: Other (See Below) Other Gastrointestinal History: ulcer Genitourinary History: Reports: None Musculoskeletal History: Reports: None Neurological History: Reports: None Psychiatric History: Reports: None Endocrine/Metabolic History: Reports: None Hematologic History: Reports: None Immunologic History: Reports: None Oncologic (Cancer) History: Reports: None Dermatologic History: Reports: None - Infectious Disease History Infectious Disease History: Reports: Chicken Pox - Past Surgical History Head Surgeries/Procedures: Reports: None Other GI Surgeries/Procedures: Also states he has had a small bowel resection for "perforation". Isn't exactly sure what was done. Male Surgical History: Reports: None Social & Family History - Family History Family Medical History: Noncontributory - Tobacco Use Smoking Status *Q: Current Every Day Smoker Years of Tobacco use: 35 Packs/Tins Daily: 1 - Caffeine Use Caffeine Use: Reports: Coffee - Recreational Drug Use Recreational Drug Use: No ED ROS GENERAL - Review of Systems Review Of Systems: ROS reveals no pertinent complaints other than HPI. ED EXAM, GENERAL - Physical Exam Exam: See Below (See dictation) Course - Vital Signs Last Recorded V/S: Last Vital Signs Temp 36.1 C 01/05/19 06:15 Pulse 89 01/05/19 06:15 Resp 14 01/05/19 06:15 BP 125/87 01/05/19 06:15 Pulse Ox 94 L 01/05/19 06:15 - Orders/Labs/Meds Orders: Active Orders 24 hr Category Date Time Status Patient Status [ADT] Stat ADT 01/05/19 06:16 Active Notify Provider Consults [RC] ASDIRECTED Care 01/05/19 06:08 Active Consult to Physician [CONS] Stat Cons 01/05/19 06:08 Active Abdomen Pelvis w Cont [CT] Stat Exams 01/05/19 04:43 Taken Abdomen Series w Chest 1V [CR] Stat Exams 01/05/19 03:48 Taken Lactated Ringers [Ringers, Lactated] 1,000 ml Med 01/05/19 06:15 Active IV ASDIRECTED Piperacillin/Tazobactam [Piperacil-Tazobact] 3.375 gm Med 01/05/19 06:07 Active Sodium Chloride 0.9% [Normal Saline] 50 ml IV ONETIME Sodium Chloride 0.9% [Saline Flush] Med 01/05/19 04:00 Active 10 ml FLUSH ASDIRECTED PRN Sodium Chloride 0.9% [Saline Flush] Med 01/05/19 04:00 Active 2.5 ml FLUSH ASDIRECTED PRN Saline Lock Insert [OM.PC] Stat Oth 01/05/19 04:00 Ordered Medication Orders Lactated Ringer's (Ringers, Lactated) 1,000 mls @ 125 mls/hr IV ASDIRECTED PATRICK Last Admin: 01/05/19 06:15 Dose: 125 mls/hr Piperacillin Sod/Tazobactam (Sod 3.375 gm/ Sodium Chloride) 50 mls @ 100 mls/ hr IV ONETIME ONE Stop: 01/05/19 06:36 Last Admin: 01/05/19 06:16 Dose: 100 mls/hr Sodium Chloride (Saline Flush) 10 ml FLUSH ASDIRECTED PRN PRN Reason: Keep Vein Open Sodium Chloride (Saline Flush) 2.5 ml FLUSH ASDIRECTED PRN PRN Reason: Keep Vein Open Labs: Laboratory Tests 01/05/19 01/05/19 01/05/19 Range/Units 03:55 03:55 04:19 WBC 21.36 H (4.0-11.0) K/uL RBC 5.21 (4.50-5.90) M/uL Hgb 15.9 (13.0-17.0) g/dL Hct 46.6 (38.0-50.0) % MCV 89.4 (80.0-98.0) fL MCH 30.5 (27.0-32.0) pg MCHC 34.1 (31.0-37.0) g/dL RDW Std Deviation 46.7 (28.0-62.0) fl RDW Coeff of Fatuma 14 (11.0-15.0) % Plt Count 150 (150-400) K/uL MPV 10.90 (7.40-12.00) fL Neut % (Auto) 87.6 H (48.0-80.0) % Lymph % (Auto) 5.8 L (16.0-40.0) % Stone % (Auto) 6.4 (0.0-15.0) % Eos % (Auto) 0.2 (0.0-7.0) % Baso % (Auto) 0.0 (0.0-1.5) % Neut # (Auto) 18.7 H (1.4-5.7) K/uL Lymph # (Auto) 1.2 (0.6-2.4) K/uL Stone # (Auto) 1.4 H (0.0-0.8) K/uL Eos # (Auto) 0.0 (0.0-0.7) K/uL Baso # (Auto) 0.0 (0.0-0.1) K/uL Nucleated RBC % 0.0 /100WBC Nucleated RBCs # 0 K/uL Lactate 1.1 (0.20-2.00) mmol/L Sodium 139 (136-148) mmol/L Potassium 4.3 (3.5-5.1) mmol/L Chloride 104 (98-107) mmol/L Carbon Dioxide 25.7 (21.0-32.0) mmol/L BUN 9 (7.0-18.0) mg/dL Creatinine 1.2 (0.8-1.3) mg/dL Est Cr Clr Drug Dosing 62.03 mL/min Estimated GFR (MDRD) > 60.0 ml/min Glucose 148 H (74-106) mg/dL Calcium 9.5 (8.5-10.1) mg/dL Total Bilirubin 1.6 H (0.2-1.0) mg/dL AST 13 L (15-37) IU/L ALT 36 (14-63) IU/L Alkaline Phosphatase 112 (46-116) U/L Total Protein 7.2 (6.4-8.2) g/dL Albumin 3.1 L (3.4-5.0) g/dL Globulin 4.1 H (2.6-4.0) g/dL Albumin/Globulin Ratio 0.8 L (0.9-1.6) Amylase 16 L (25-115) U/L Lipase 49 L (73-393) U/L Urine Color Urine Appearance Urine pH (5.0-8.0) Ur Specific [place] (1.001-1.035) Urine Protein (NEGATIVE) mg/dL Urine Glucose (UA) (NEGATIVE) mg/dL Urine Ketones (NEGATIVE) mg/dL Urine Occult Blood (NEGATIVE) Urine Nitrite (NEGATIVE) Urine Bilirubin (NEGATIVE) Urine Urobilinogen (<2.0) EU/dL Ur Leukocyte Esterase (NEGATIVE) Urine RBC (0-2/HPF) Urine WBC (0-5/HPF) Ur Epithelial Cells (NONE-FEW) Urine Bacteria (NEGATIVE) Urine Mucus (NONE-MOD) 01/05/19 Range/Units 05:27 WBC (4.0-11.0) K/uL RBC (4.50-5.90) M/uL Hgb (13.0-17.0) g/dL Hct (38.0-50.0) % MCV (80.0-98.0) fL MCH (27.0-32.0) pg MCHC (31.0-37.0) g/dL RDW Std Deviation (28.0-62.0) fl RDW Coeff of Fatuma (11.0-15.0) % Plt Count (150-400) K/uL MPV (7.40-12.00) fL Neut % (Auto) (48.0-80.0) % Lymph % (Auto) (16.0-40.0) % Stone % (Auto) (0.0-15.0) % Eos % (Auto) (0.0-7.0) % Baso % (Auto) (0.0-1.5) % Neut # (Auto) (1.4-5.7) K/uL Lymph # (Auto) (0.6-2.4) K/uL Stone # (Auto) (0.0-0.8) K/uL Eos # (Auto) (0.0-0.7) K/uL Baso # (Auto) (0.0-0.1) K/uL Nucleated RBC % /100WBC Nucleated RBCs # K/uL Lactate (0.20-2.00) mmol/L Sodium (136-148) mmol/L Potassium (3.5-5.1) mmol/L Chloride (98-107) mmol/L Carbon Dioxide (21.0-32.0) mmol/L BUN (7.0-18.0) mg/dL Creatinine (0.8-1.3) mg/dL Est Cr Clr Drug Dosing mL/min Estimated GFR (MDRD) ml/min Glucose (74-106) mg/dL Calcium (8.5-10.1) mg/dL Total Bilirubin (0.2-1.0) mg/dL AST (15-37) IU/L ALT (14-63) IU/L Alkaline Phosphatase (46-116) U/L Total Protein (6.4-8.2) g/dL Albumin (3.4-5.0) g/dL Globulin (2.6-4.0) g/dL Albumin/Globulin Ratio (0.9-1.6) Amylase (25-115) U/L Lipase (73-393) U/L Urine Color YELLOW Urine Appearance CLEAR Urine pH 7.0 (5.0-8.0) Ur Specific [place] 1.010 (1.001-1.035) Urine Protein TRACE H (NEGATIVE) mg/dL Urine Glucose (UA) NEGATIVE (NEGATIVE) mg/dL Urine Ketones NEGATIVE (NEGATIVE) mg/dL Urine Occult Blood TRACE-INTACT H (NEGATIVE) Urine Nitrite NEGATIVE (NEGATIVE) Urine Bilirubin NEGATIVE (NEGATIVE) Urine Urobilinogen 2.0 H (<2.0) EU/dL Ur Leukocyte Esterase NEGATIVE (NEGATIVE) Urine RBC 0-3 (0-2/HPF) Urine WBC 0-1 (0-5/HPF) Ur Epithelial Cells RARE (NONE-FEW) Urine Bacteria FEW (NEGATIVE) Urine Mucus LIGHT (NONE-MOD) Meds: Medications Generic Name Dose Route Start Last Admin Trade Name Freq PRN Reason Stop Dose Admin Lactated Ringer's 1,000 mls @ 125 mls/hr 01/05/19 06:15 01/05/19 06:15 Ringers, Lactated IV 125 mls/hr ASDIRECTED PATRICK Administration Piperacillin Sod/Tazobactam 50 mls @ 100 mls/hr 01/05/19 06:07 01/05/19 06:16 Sod 3.375 gm/ Sodium Chloride IV 01/05/19 06:36 100 mls/hr ONETIME ONE Administration Sodium Chloride 10 ml 01/05/19 04:00 Saline Flush FLUSH ASDIRECTED PRN Keep Vein Open Sodium Chloride 2.5 ml 01/05/19 04:00 Saline Flush FLUSH ASDIRECTED PRN Keep Vein Open Discontinued Medications Generic Name Dose Route Start Last Admin Trade Name Dewayneq PRN Reason Stop Dose Admin Dicyclomine HCl 10 mg 01/05/19 03:47 01/05/19 04:16 Bentyl PO 01/05/19 03:48 10 mg ONETIME ONE Administration Sodium Chloride 1,000 mls @ 999 mls/hr 01/05/19 04:00 01/05/19 04:16 Normal Saline IV 01/05/19 05:00 999 mls/hr STAT ONE Administration Iopamidol 100 ml 01/05/19 05:16 01/05/19 05:17 Isovue Multipack-370 (76%) IVPUSH 01/05/19 05:17 100 ml ONETIME STA Administration Morphine Sulfate 4 mg 01/05/19 05:44 01/05/19 05:50 Morphine IVPUSH 01/05/19 05:45 4 mg ONETIME ONE Administration Ondansetron HCl 4 mg 01/05/19 05:44 01/05/19 05:50 Zofran IVPUSH 01/05/19 05:45 4 mg ONETIME ONE Administration Tramadol HCl 50 mg 01/05/19 03:47 01/05/19 04:15 Ultram PO 01/05/19 03:48 50 mg ONETIME ONE Administration Departure - Departure Time of Disposition: 06:17 Disposition: Refer to Observation Condition: Good Clinical Impression: Acute cholecystitis - Discharge Information Referrals: PCP,None [Primary Care Provider] - Forms: ED Department Discharge - My Orders Last 24 Hours: My Active Orders 01/05/19 03:48 Abdomen Series w Chest 1V [CR] Stat 01/05/19 04:00 Sodium Chloride 0.9% [Saline Flush] 10 ml FLUSH ASDIRECTED PRN Sodium Chloride 0.9% [Saline Flush] 2.5 ml FLUSH ASDIRECTED PRN Saline Lock Insert [OM.PC] Stat 01/05/19 04:43 Abdomen Pelvis w Cont [CT] Stat 01/05/19 06:07 Piperacillin/Tazobactam [Piperacil-Tazobact] 3.375 gm Sodium Chloride 0.9% [ Normal Saline] 50 ml IV ONETIME 01/05/19 06:08 Notify Provider Consults [RC] ASDIRECTED Consult to Physician [CONS] Stat 01/05/19 06:15 Lactated Ringers [Ringers, Lactated] 1,000 ml IV ASDIRECTED 01/05/19 06:16 Patient Status [ADT] Stat - Assessment/Plan Last 24 Hours: My Active Orders 01/05/19 03:48 Abdomen Series w Chest 1V [CR] Stat 01/05/19 04:00 Sodium Chloride 0.9% [Saline Flush] 10 ml FLUSH ASDIRECTED PRN Sodium Chloride 0.9% [Saline Flush] 2.5 ml FLUSH ASDIRECTED PRN Saline Lock Insert [OM.PC] Stat 01/05/19 04:43 Abdomen Pelvis w Cont [CT] Stat 01/05/19 06:07 Piperacillin/Tazobactam [Piperacil-Tazobact] 3.375 gm Sodium Chloride 0.9% [ Normal Saline] 50 ml IV ONETIME 01/05/19 06:08 Notify Provider Consults [RC] ASDIRECTED Consult to Physician [CONS] Stat 01/05/19 06:15 Lactated Ringers [Ringers, Lactated] 1,000 ml IV ASDIRECTED 01/05/19 06:16 Patient Status [ADT] Stat
[2019-01-05] MEDS ORDERED: Sodium Chloride 0.9% 2.5 ML Syringe FLUSH PRN (04:00)
[2019-01-05] MEDS ORDERED: Sodium Chloride 0.9% 10 ML Syringe FLUSH PRN (04:00)
[2019-01-05] MEDS ORDERED: Sodium Chloride 0.9% 1,000 ML IV ONE (04:00)
[2019-01-05 04:19] LABS: CHLORIDE,CL 104 mmol/L (98-107); SODIUM,NA 139 mmol/L (136-148)
[2019-01-05] MEDS ORDERED: Iopamidol 755 MG/ML 500 ML Multipack Bottle IVPUSH STA (05:16)
[2019-01-05] MEDS ORDERED: Ondansetron 4 MG/2 ML SDV IVPUSH ONE (05:44)
[2019-01-05] MEDS ORDERED: Morphine 2 MG/ML Syringe IVPUSH ONE (05:44)
[2019-01-05] MEDS ORDERED: Piperacillin/Tazobactam 3.375 GM in Sodium Chloride 0.9% 50 ML IV ONE (06:07)
[2019-01-05] MEDS: Lactated Ringers 1,000 ML IV SCH ×3 (06:15→23:09)
[2019-01-05] MEDS ORDERED: Ondansetron 4 MG/2 ML SDV IVPUSH PRN (08:20)
--- NOTE | 2019-01-05 08:21 | PCM.HP ---
H&P History of Present Illness - General Date of Service: 01/05/19 Admit Problem/Dx: Admission Diagnosis/Problem Admission Diagnosis/Problem Cholecystitis Source of Information: Patient History Limitations: Reports: No Limitations - History of Present Illness Initial Comments - Free Text/Narative: This 58 year old male with pmh of hyperlipidemia and recent abdominal pain, being seen as outpatient with Dr Boss, presented to the ED with complaints of RUQ pain along with nausea that started on Thursday. He reports a burning fullness sensation in his epigastric region and pain with a bulge to RUQ. He denies fevers, chills or diarrhea. No black on bloody BMs. No other abdominal pain, no vomiting. Reports appendectomy years ago. He reports smoking 1 ppd, no alcohol use and no recreational drug use. In the ED leukocytosis noted at 21,360, Lactate 1.1. Bili 1.6 AST 13, ALT 36, alk phose 11. Ua negative. Lipase 49, amylase 16. Abdominal CT reveals distended thick walled gallbladder with pericholecystic fluid and cholelithiasis , consistent with cholecystitis. He was treated with Zosyn and IV fluids. Dr Boss consulted. Right Upper Abdomen Pain Score (Numeric/FACES): 3 - Related Data Allergies/Adverse Reactions: Allergies Allergy/AdvReac Type Severity Reaction Status Date / Time No Known Allergies Allergy Verified 01/05/19 03:31 Home Medications: Home Meds . [No Known Home Meds] 01/05/19 [History] Past Medical History - Past Health History Medical/Surgical History: Denies Medical/Surgical History HEENT History: Reports: None, Other (See Below) Other HEENT History: wears glasses Cardiovascular History: Reports: High Cholesterol Respiratory History: Reports: None. Denies: COPD Gastrointestinal History: Reports: Other (See Below) Other Gastrointestinal History: ulcer Genitourinary History: Reports: None. Denies: Chronic Renal Insuffiency Musculoskeletal History: Reports: None Neurological History: Reports: None. Denies: CVA, TIA Psychiatric History: Reports: None Endocrine/Metabolic History: Reports: Obesity/BMI 30+. Denies: Diabetes, Type II Hematologic History: Reports: None Immunologic History: Reports: None Oncologic (Cancer) History: Reports: None Dermatologic History: Reports: None - Infectious Disease History Infectious Disease History: Reports: Chicken Pox - Past Surgical History Head Surgeries/Procedures: Reports: None GI Surgical History: Reports: Appendectomy Other GI Surgeries/Procedures: Also states he has had a small bowel resection for "perforation". Isn't exactly sure what was done. Male Surgical History: Reports: None Social & Family History - Family History Family Medical History: Noncontributory - Tobacco Use Smoking Status *Q: Current Every Day Smoker Years of Tobacco use: 25 Packs/Tins Daily: 1 Used Tobacco, but Quit: No Second Hand Smoke Exposure: No - Caffeine Use Caffeine Use: Reports: Coffee - Recreational Drug Use Recreational Drug Use: No - Living Situation & Occupation Living situation: Reports: Occupation: Employed H&P Review of Systems - Review of Systems: Review Of Systems: See Below General: Reports: Decreased Appetite. Denies: Fever, Chills, Malaise, Weakness HEENT: Reports: No Symptoms. Denies: Headaches, Sinus Congestion, Sore Throat Pulmonary: Reports: No Symptoms. Denies: Shortness of Breath, Wheezing, Cough, Sputum Cardiovascular: Reports: No Symptoms. Denies: Chest Pain Gastrointestinal: Reports: Abdominal Pain (RUQ), Nausea, Other (heartburn). Denies: Black Stool, Bloody Stool, Vomiting Genitourinary: Reports: No Symptoms. Denies: Dysuria, Frequency, Burning Musculoskeletal: Reports: No Symptoms Skin: Reports: No Symptoms Psychiatric: Reports: No Symptoms Neurological: Reports: No Symptoms Hematologic/Lymphatic: Reports: No Symptoms Immunologic: Reports: No Symptoms Exam - Exam Exam: See Below - Vital Signs Vital Signs: Last Vital Signs Temp 97 F 01/05/19 06:15 Pulse 89 01/05/19 06:15 Resp 14 01/05/19 06:15 BP 125/87 01/05/19 06:15 Pulse Ox 94 L 01/05/19 06:15 Weight: 85.638 kg - Exam General: Alert, Oriented, Cooperative HEENT: Conjunctiva Clear, Mucosa Moist & Drain, Pupils Equal Neck: Supple, Trachea Midline Lungs: Clear to Auscultation, Normal Respiratory Effort Cardiovascular: Regular Rate, Regular Rhythm, Normal S1, Normal S2. No: Systolic Murmur GI/Abdominal Exam: Normal Bowel Sounds, Soft, Tender (RUQ) Back Exam: Normal Inspection, Full Range of Motion Extremities: Normal Inspection, Normal Range of Motion Neuro Extensive - Mental Status: Alert, Oriented x3, Normal Mood/Affect Neuro Extensive - Motor, Sensory, Reflexes: CN II-XII Intact Psychiatric: Alert, Normal Affect, Normal Mood - Patient Data Lab Results Last 24 hrs: Laboratory Results - last 24 hr 01/05/19 01/05/19 01/05/19 Range/Units 03:55 03:55 04:19 WBC 21.36 H (4.0-11.0) K/uL RBC 5.21 (4.50-5.90) M/uL Hgb 15.9 (13.0-17.0) g/dL Hct 46.6 (38.0-50.0) % MCV 89.4 (80.0-98.0) fL MCH 30.5 (27.0-32.0) pg MCHC 34.1 (31.0-37.0) g/dL RDW Std Deviation 46.7 (28.0-62.0) fl RDW Coeff of Fatuma 14 (11.0-15.0) % Plt Count 150 (150-400) K/uL MPV 10.90 (7.40-12.00) fL Neut % (Auto) 87.6 H (48.0-80.0) % Lymph % (Auto) 5.8 L (16.0-40.0) % [place] % (Auto) 6.4 (0.0-15.0) % Eos % (Auto) 0.2 (0.0-7.0) % Baso % (Auto) 0.0 (0.0-1.5) % Neut # (Auto) 18.7 H (1.4-5.7) K/uL Lymph # (Auto) 1.2 (0.6-2.4) K/uL [place] # (Auto) 1.4 H (0.0-0.8) K/uL Eos # (Auto) 0.0 (0.0-0.7) K/uL Baso # (Auto) 0.0 (0.0-0.1) K/uL Nucleated RBC % 0.0 /100WBC Nucleated RBCs # 0 K/uL Lactate 1.1 (0.20-2.00) mmol/L Sodium 139 (136-148) mmol/L Potassium 4.3 (3.5-5.1) mmol/L Chloride 104 (98-107) mmol/L Carbon Dioxide 25.7 (21.0-32.0) mmol/L BUN 9 (7.0-18.0) mg/dL Creatinine 1.2 (0.8-1.3) mg/dL Est Cr Clr Drug Dosing 62.03 mL/min Estimated GFR (MDRD) > 60.0 ml/min Glucose 148 H (74-106) mg/dL Calcium 9.5 (8.5-10.1) mg/dL Total Bilirubin 1.6 H (0.2-1.0) mg/dL AST 13 L (15-37) IU/L ALT 36 (14-63) IU/L Alkaline Phosphatase 112 (46-116) U/L Total Protein 7.2 (6.4-8.2) g/dL Albumin 3.1 L (3.4-5.0) g/dL Globulin 4.1 H (2.6-4.0) g/dL Albumin/Globulin Ratio 0.8 L (0.9-1.6) Amylase 16 L (25-115) U/L Lipase 49 L (73-393) U/L Urine Color Urine Appearance Urine pH (5.0-8.0) Ur Specific [place] (1.001-1.035) Urine Protein (NEGATIVE) mg/dL Urine Glucose (UA) (NEGATIVE) mg/dL Urine Ketones (NEGATIVE) mg/dL Urine Occult Blood (NEGATIVE) Urine Nitrite (NEGATIVE) Urine Bilirubin (NEGATIVE) Urine Urobilinogen (<2.0) EU/dL Ur Leukocyte Esterase (NEGATIVE) Urine RBC (0-2/HPF) Urine WBC (0-5/HPF) Ur Epithelial Cells (NONE-FEW) Urine Bacteria (NEGATIVE) Urine Mucus (NONE-MOD) 01/05/19 Range/Units 05:27 WBC (4.0-11.0) K/uL RBC (4.50-5.90) M/uL Hgb (13.0-17.0) g/dL Hct (38.0-50.0) % MCV (80.0-98.0) fL MCH (27.0-32.0) pg MCHC (31.0-37.0) g/dL RDW Std Deviation (28.0-62.0) fl RDW Coeff of Fatuma (11.0-15.0) % Plt Count (150-400) K/uL MPV (7.40-12.00) fL Neut % (Auto) (48.0-80.0) % Lymph % (Auto) (16.0-40.0) % [place] % (Auto) (0.0-15.0) % Eos % (Auto) (0.0-7.0) % Baso % (Auto) (0.0-1.5) % Neut # (Auto) (1.4-5.7) K/uL Lymph # (Auto) (0.6-2.4) K/uL [place] # (Auto) (0.0-0.8) K/uL Eos # (Auto) (0.0-0.7) K/uL Baso # (Auto) (0.0-0.1) K/uL Nucleated RBC % /100WBC Nucleated RBCs # K/uL Lactate (0.20-2.00) mmol/L Sodium (136-148) mmol/L Potassium (3.5-5.1) mmol/L Chloride (98-107) mmol/L Carbon Dioxide (21.0-32.0) mmol/L BUN (7.0-18.0) mg/dL Creatinine (0.8-1.3) mg/dL Est Cr Clr Drug Dosing mL/min Estimated GFR (MDRD) ml/min Glucose (74-106) mg/dL Calcium (8.5-10.1) mg/dL Total Bilirubin (0.2-1.0) mg/dL AST (15-37) IU/L ALT (14-63) IU/L Alkaline Phosphatase (46-116) U/L Total Protein (6.4-8.2) g/dL Albumin (3.4-5.0) g/dL Globulin (2.6-4.0) g/dL Albumin/Globulin Ratio (0.9-1.6) Amylase (25-115) U/L Lipase (73-393) U/L Urine Color YELLOW Urine Appearance CLEAR Urine pH 7.0 (5.0-8.0) Ur Specific [place] 1.010 (1.001-1.035) Urine Protein TRACE H (NEGATIVE) mg/dL Urine Glucose (UA) NEGATIVE (NEGATIVE) mg/dL Urine Ketones NEGATIVE (NEGATIVE) mg/dL Urine Occult Blood TRACE-INTACT H (NEGATIVE) Urine Nitrite NEGATIVE (NEGATIVE) Urine Bilirubin NEGATIVE (NEGATIVE) Urine Urobilinogen 2.0 H (<2.0) EU/dL Ur Leukocyte Esterase NEGATIVE (NEGATIVE) Urine RBC 0-3 (0-2/HPF) Urine WBC 0-1 (0-5/HPF) Ur Epithelial Cells RARE (NONE-FEW) Urine Bacteria FEW (NEGATIVE) Urine Mucus LIGHT (NONE-MOD) Result Diagrams: 01/05/19 03:55 01/05/19 03:55 - Problem List (1) Acute cholecystitis SNOMED Code(s): 88092330 ICD Code: K81.0 - ACUTE CHOLECYSTITIS Status: Acute Priority: High Current Visit: Yes (2) Cholelithiasis SNOMED Code(s): 541693167 ICD Code: K80.20 - CALCULUS OF GALLBLADDER W/O CHOLECYSTITIS W/O OBSTRUCTION Status: Acute Current Visit: Yes Qualifiers: Cholelithiasis location: gallbladder Cholecystitis presence: with cholecystitis Cholecystitis acuity: acute Biliary obstruction: without biliary obstruction Qualified Code(s): K80.00 - Calculus of gallbladder with acute cholecystitis without obstruction (3) Hyperbilirubinemia SNOMED Code(s): 62729256 ICD Code: E80.6 - OTHER DISORDERS OF BILIRUBIN METABOLISM Status: Acute Priority: Medium Current Visit: Yes (4) Abdominal pain SNOMED Code(s): 80412638 ICD Code: R10.9 - UNSPECIFIED ABDOMINAL PAIN Status: Acute Priority: Medium Current Visit: No Qualifiers: Abdominal location: epigastric Qualified Code(s): R10.13 - Epigastric pain Problem List Initiated/Reviewed/Updated: Yes Orders Last 24hrs: Active Orders 24 hr Category Date Time Status Patient Status [ADT] Stat ADT 01/05/19 06:16 Active Antiembolic Devices [RC] PER UNIT ROUTINE Care 01/05/19 08:17 Ordered Intake and Output [RC] QSHIFT Care 01/05/19 08:17 Ordered May Shower [RC] ASDIRECTED Care 01/05/19 08:16 Ordered Notify Provider Consults [RC] ASDIRECTED Care 01/05/19 06:08 Active Oxygen Therapy [RC] PRN Care 01/05/19 08:16 Ordered Up ad Thea [RC] ASDIRECTED Care 01/05/19 08:16 Ordered VTE/DVT Education [RC] PER UNIT ROUTINE Care 01/05/19 08:16 Ordered Vital Signs [RC] Q4H Care 01/05/19 08:16 Ordered Consult to Physician [CONS] Stat Cons 01/05/19 06:08 Active NPO [Nothing Per Oral Diet] [DIET] Diet 01/05/19 Breakfast Ordered Abdomen Pelvis w Cont [CT] Stat Exams 01/05/19 04:43 Taken Abdomen Series w Chest 1V [CR] Stat Exams 01/05/19 03:48 Taken CBC WITH AUTO DIFF [HEME] AM Lab 01/06/19 05:11 Ordered CBC WITH AUTO DIFF [HEME] AM Lab 01/07/19 05:11 Ordered CBC WITH AUTO DIFF [HEME] AM Lab 01/08/19 05:11 Ordered COMPREHENSIVE METABOLIC PN,CMP [CHEM] AM Lab 01/06/19 05:11 Ordered COMPREHENSIVE METABOLIC PN,CMP [CHEM] AM Lab 01/07/19 05:11 Ordered COMPREHENSIVE METABOLIC PN,CMP [CHEM] AM Lab 01/08/19 05:11 Ordered CULTURE BLOOD [BC] Stat Lab 01/05/19 08:14 Ordered CULTURE BLOOD [BC] Stat Lab 01/05/19 08:14 Ordered Lactated Ringers [Ringers, Lactated] 1,000 ml Med 01/05/19 06:15 Active IV ASDIRECTED Morphine Med 01/05/19 08:16 Ordered 3 mg IVPUSH Q2H PRN Ondansetron [Zofran] Med 01/05/19 08:20 Ordered 4 mg IVPUSH Q4H PRN Piperacillin/Tazobactam [Piperacil-Tazobact] 4.5 gm Med 01/05/19 12:00 Ordered Sodium Chloride 0.9% [Normal Saline] 100 ml IV Q6H Sodium Chloride 0.9% [Saline Flush] Med 01/05/19 04:00 Active 10 ml FLUSH ASDIRECTED PRN Sodium Chloride 0.9% [Saline Flush] Med 01/05/19 04:00 Active 2.5 ml FLUSH ASDIRECTED PRN Blood Culture x2 Reflex Set [OM.PC] Stat Oth 01/05/19 08:14 Ordered Saline Lock Insert [OM.PC] Stat Oth 01/05/19 04:00 Ordered Sequential Compression Device [OM.PC] Per Unit Routine Oth 01/05/19 08:17 Ordered Resuscitation Status Routine Resus Stat 01/05/19 08:16 Ordered Medication Orders Lactated Ringer's (Ringers, Lactated) 1,000 mls @ 125 mls/hr IV ASDIRECTED PATRICK Last Admin: 01/05/19 06:15 Dose: 125 mls/hr Piperacillin Sod/Tazobactam (Sod 4.5 gm/ Sodium Chloride) 100 mls @ 100 mls/hr IV Q6H PATRICK Morphine Sulfate (Morphine) 3 mg IVPUSH Q2H PRN PRN Reason: Pain (severe 7-10) Sodium Chloride (Saline Flush) 10 ml FLUSH ASDIRECTED PRN PRN Reason: Keep Vein Open Sodium Chloride (Saline Flush) 2.5 ml FLUSH ASDIRECTED PRN PRN Reason: Keep Vein Open Assessment/Plan Comment:: This 58 year old female admitted with acute cholecystitis and cholelithiasis 1. Acute cholecystitis: Consulted Dr Boss, we appreciate his assistance with this patient. Continue Zosyn. BC obtained. Repeat labwork in am. NPO, Protonix IV daily, Zofran and Morphine PRN. Consider MRCP if bilirubin remains elevated. VTE prophylaxis: SCDs Dispo: 2-3 days
--- NOTE | 2019-01-05 08:44 | PCM.CONS ---
H&P History of Present Illness - General Date of Service: 01/05/19 Admit Problem/Dx: Admission Diagnosis/Problem Admission Diagnosis/Problem Cholecystitis Source of Information: Patient History Limitations: Reports: No Limitations - History of Present Illness Initial Comments - Free Text/Narative: 58-year-old gentleman who presented to the emergency room this morning complaining of increasing right upper quadrant abdominal pain with some nausea and vomiting. No fever or chills. He was also in the emergency room with abdominal pain a few days ago, but did not have anything specific as related to the right upper quadrant. He was found have a significant leukocytosis with a white count of 21,000. A CT scan of the abdomen does show acute cholecystitis with the gallbladder adherent to the duodenum. The common bile duct is not enlarged. His total bilirubin was 1.6. Onset of Symptoms: Reports: Gradual Duration of Symptoms: Reports: Day(s): Location: Reports: Abdomen Quality: Reports: Pressure Severity: Moderate Improves with: Reports: Rest Worsens with: Reports: None Context: Reports: Sick Contact Associated Symptoms: Reports: Nausea/Vomiting. Denies: Chest Pain, Fever/Chills , Headaches, Loss of Appetite Right Upper Abdomen Pain Score (Numeric/FACES): 3 - Related Data Allergies/Adverse Reactions: Allergies Allergy/AdvReac Type Severity Reaction Status Date / Time No Known Allergies Allergy Verified 01/05/19 03:31 Home Medications: Home Meds . [No Known Home Meds] 01/05/19 [History] Past Medical History - Past Health History Medical/Surgical History: Denies Medical/Surgical History HEENT History: Reports: None, Other (See Below) Other HEENT History: wears glasses Cardiovascular History: Reports: None Respiratory History: Reports: None Gastrointestinal History: Reports: Other (See Below) Other Gastrointestinal History: ulcer Genitourinary History: Reports: None Musculoskeletal History: Reports: None Neurological History: Reports: None Psychiatric History: Reports: None Endocrine/Metabolic History: Reports: None Hematologic History: Reports: None Immunologic History: Reports: None Oncologic (Cancer) History: Reports: None Dermatologic History: Reports: None - Infectious Disease History Infectious Disease History: Reports: Chicken Pox - Past Surgical History Head Surgeries/Procedures: Reports: None GI Surgical History: Reports: Appendectomy Other GI Surgeries/Procedures: Also states he has had a small bowel resection for "perforation". Isn't exactly sure what was done. Male Surgical History: Reports: None Social & Family History - Family History Family Medical History: Noncontributory - Tobacco Use Smoking Status *Q: Current Every Day Smoker Years of Tobacco use: 25 Packs/Tins Daily: 1 Used Tobacco, but Quit: No Second Hand Smoke Exposure: No - Caffeine Use Caffeine Use: Reports: Coffee - Recreational Drug Use Recreational Drug Use: No H&P Review of Systems - Review of Systems: Review Of Systems: See Below General: Denies: Fever, Chills, Malaise, Weakness, Fatigue HEENT: Reports: No Symptoms Pulmonary: Denies: Shortness of Breath, Wheezing Cardiovascular: Denies: Chest Pain Gastrointestinal: Reports: Abdominal Pain, Decreased Appetite, Flatus, Nausea, Vomiting. Denies: Anorexia, Black Stool, Bloody Stool, Constipation, Diarrhea, Distension Genitourinary: Denies: Dysuria, Frequency, Burning Musculoskeletal: Reports: No Symptoms Skin: Reports: No Symptoms Psychiatric: Reports: No Symptoms Neurological: Reports: No Symptoms Hematologic/Lymphatic: Reports: No Symptoms Immunologic: Reports: No Symptoms Exam - Exam Exam: See Below - Vital Signs Vital Signs: Last Vital Signs Temp 98.2 F 01/05/19 07:01 Pulse 86 01/05/19 07:01 Resp 16 01/05/19 07:01 BP 127/82 01/05/19 07:01 Pulse Ox 95 01/05/19 07:01 Weight: 188 lb 12.8 oz - Exam General: Alert, Oriented, Cooperative, Mild Distress HEENT: Conjunctiva Clear, EACs Clear, EOMI, Pupils Equal, Pupils Reactive. No: Scleral Icterus Neck: Supple, Trachea Midline Lungs: Clear to Auscultation, Normal Respiratory Effort Cardiovascular: Regular Rate, Regular Rhythm, Normal S1, Normal S2. No: Tachycardia GI/Abdominal Exam: Soft, No Distention, Tender, Mass (Gallbladder is palpable just at the lower edge of the right costal margin.). No: Guarding, Rigid, Rebound (Male) Exam: No Hernia Rectal (Males) Exam: Deferred Back Exam: Normal Inspection Extremities: Normal Inspection, Normal Range of Motion Peripheral Pulses: 3+: Posterior Tibial (L), Posterior Tibial (R), Dorsalis Pedis (L), Dorsalis Pedis (R) Skin: Warm, Dry, Intact Neurological: Normal Speech, Normal Tone Psychiatric: Alert, Normal Affect, Normal Mood - Patient Data Lab Results Last 24 hrs: Laboratory Results - last 24 hr 01/05/19 01/05/19 01/05/19 Range/Units 03:55 03:55 04:19 WBC 21.36 H (4.0-11.0) K/uL RBC 5.21 (4.50-5.90) M/uL Hgb 15.9 (13.0-17.0) g/dL Hct 46.6 (38.0-50.0) % MCV 89.4 (80.0-98.0) fL MCH 30.5 (27.0-32.0) pg MCHC 34.1 (31.0-37.0) g/dL RDW Std Deviation 46.7 (28.0-62.0) fl RDW Coeff of Fatuma 14 (11.0-15.0) % Plt Count 150 (150-400) K/uL MPV 10.90 (7.40-12.00) fL Neut % (Auto) 87.6 H (48.0-80.0) % Lymph % (Auto) 5.8 L (16.0-40.0) % [place] % (Auto) 6.4 (0.0-15.0) % Eos % (Auto) 0.2 (0.0-7.0) % Baso % (Auto) 0.0 (0.0-1.5) % Neut # (Auto) 18.7 H (1.4-5.7) K/uL Lymph # (Auto) 1.2 (0.6-2.4) K/uL [place] # (Auto) 1.4 H (0.0-0.8) K/uL Eos # (Auto) 0.0 (0.0-0.7) K/uL Baso # (Auto) 0.0 (0.0-0.1) K/uL Nucleated RBC % 0.0 /100WBC Nucleated RBCs # 0 K/uL Lactate 1.1 (0.20-2.00) mmol/L Sodium 139 (136-148) mmol/L Potassium 4.3 (3.5-5.1) mmol/L Chloride 104 (98-107) mmol/L Carbon Dioxide 25.7 (21.0-32.0) mmol/L BUN 9 (7.0-18.0) mg/dL Creatinine 1.2 (0.8-1.3) mg/dL Est Cr Clr Drug Dosing 62.03 mL/min Estimated GFR (MDRD) > 60.0 ml/min Glucose 148 H (74-106) mg/dL Calcium 9.5 (8.5-10.1) mg/dL Total Bilirubin 1.6 H (0.2-1.0) mg/dL AST 13 L (15-37) IU/L ALT 36 (14-63) IU/L Alkaline Phosphatase 112 (46-116) U/L Total Protein 7.2 (6.4-8.2) g/dL Albumin 3.1 L (3.4-5.0) g/dL Globulin 4.1 H (2.6-4.0) g/dL Albumin/Globulin Ratio 0.8 L (0.9-1.6) Amylase 16 L (25-115) U/L Lipase 49 L (73-393) U/L Urine Color Urine Appearance Urine pH (5.0-8.0) Ur Specific [place] (1.001-1.035) Urine Protein (NEGATIVE) mg/dL Urine Glucose (UA) (NEGATIVE) mg/dL Urine Ketones (NEGATIVE) mg/dL Urine Occult Blood (NEGATIVE) Urine Nitrite (NEGATIVE) Urine Bilirubin (NEGATIVE) Urine Urobilinogen (<2.0) EU/dL Ur Leukocyte Esterase (NEGATIVE) Urine RBC (0-2/HPF) Urine WBC (0-5/HPF) Ur Epithelial Cells (NONE-FEW) Urine Bacteria (NEGATIVE) Urine Mucus (NONE-MOD) 01/05/19 Range/Units 05:27 WBC (4.0-11.0) K/uL RBC (4.50-5.90) M/uL Hgb (13.0-17.0) g/dL Hct (38.0-50.0) % MCV (80.0-98.0) fL MCH (27.0-32.0) pg MCHC (31.0-37.0) g/dL RDW Std Deviation (28.0-62.0) fl RDW Coeff of Fatuma (11.0-15.0) % Plt Count (150-400) K/uL MPV (7.40-12.00) fL Neut % (Auto) (48.0-80.0) % Lymph % (Auto) (16.0-40.0) % [place] % (Auto) (0.0-15.0) % Eos % (Auto) (0.0-7.0) % Baso % (Auto) (0.0-1.5) % Neut # (Auto) (1.4-5.7) K/uL Lymph # (Auto) (0.6-2.4) K/uL [place] # (Auto) (0.0-0.8) K/uL Eos # (Auto) (0.0-0.7) K/uL Baso # (Auto) (0.0-0.1) K/uL Nucleated RBC % /100WBC Nucleated RBCs # K/uL Lactate (0.20-2.00) mmol/L Sodium (136-148) mmol/L Potassium (3.5-5.1) mmol/L Chloride (98-107) mmol/L Carbon Dioxide (21.0-32.0) mmol/L BUN (7.0-18.0) mg/dL Creatinine (0.8-1.3) mg/dL Est Cr Clr Drug Dosing mL/min Estimated GFR (MDRD) ml/min Glucose (74-106) mg/dL Calcium (8.5-10.1) mg/dL Total Bilirubin (0.2-1.0) mg/dL AST (15-37) IU/L ALT (14-63) IU/L Alkaline Phosphatase (46-116) U/L Total Protein (6.4-8.2) g/dL Albumin (3.4-5.0) g/dL Globulin (2.6-4.0) g/dL Albumin/Globulin Ratio (0.9-1.6) Amylase (25-115) U/L Lipase (73-393) U/L Urine Color YELLOW Urine Appearance CLEAR Urine pH 7.0 (5.0-8.0) Ur Specific [place] 1.010 (1.001-1.035) Urine Protein TRACE H (NEGATIVE) mg/dL Urine Glucose (UA) NEGATIVE (NEGATIVE) mg/dL Urine Ketones NEGATIVE (NEGATIVE) mg/dL Urine Occult Blood TRACE-INTACT H (NEGATIVE) Urine Nitrite NEGATIVE (NEGATIVE) Urine Bilirubin NEGATIVE (NEGATIVE) Urine Urobilinogen 2.0 H (<2.0) EU/dL Ur Leukocyte Esterase NEGATIVE (NEGATIVE) Urine RBC 0-3 (0-2/HPF) Urine WBC 0-1 (0-5/HPF) Ur Epithelial Cells RARE (NONE-FEW) Urine Bacteria FEW (NEGATIVE) Urine Mucus LIGHT (NONE-MOD) Result Diagrams: 01/05/19 03:55 01/05/19 03:55 Consult PN Assessment/Plan Procedures: Procedures ASSAY OF AMYLASE (08/16/18) ASSAY OF LIPASE (01/02/19) ASSAY OF TROPONIN QUANT (01/02/19) CHEST X-RAY 2VW FRONTAL&LATL (12/05/16) COMPLETE CBC W/AUTO DIFF WBC (01/02/19) COMPREHEN METABOLIC PANEL (01/02/19) CONTRST X-RAY UPPR GI TRACT (12/30/18) CT ABD & PELV W/CONTRAST (01/02/19) ECHO EXAM OF ABDOMEN (01/02/19) ELECTROCARDIOGRAM TRACING (08/16/18) EMERGENCY DEPT VISIT (01/02/19) EMERGENCY DEPT VISIT (10/21/18) EMERGENCY DEPT VISIT (08/16/18) EMERGENCY DEPT VISIT (12/05/16) GLYCOSYLATED HEMOGLOBIN TEST (08/23/18) HELICOBACTER PYLORI ANTIBODY (08/16/18) HPYLORI STOOL IA (09/30/18) HYDRATE IV INFUSION ADD-ON (01/02/19) INFLUENZA ASSAY W/OPTIC (10/21/18) LIPID PANEL (09/30/18) PROTHROMBIN TIME (12/05/16) ROUTINE VENIPUNCTURE (09/30/18) THER/PROPH/DIAG INJ IV PUSH (01/02/19) TX/PRO/DX INJ NEW DRUG ADDON (01/02/19) URINALYSIS AUTO W/SCOPE (01/02/19) X-RAY EXAM CHEST 2 VIEWS (10/21/18) X-RAY EXAM HIP UNI 2-3 VIEWS (12/05/16) X-RAY EXAM L-S SPINE 2/3 VWS (12/05/16) X-RAY EXAM SERIES ABDOMEN (08/16/18) (1) Hyperbilirubinemia SNOMED Code(s): 62948996 Code(s): E80.6 - OTHER DISORDERS OF BILIRUBIN METABOLISM Priority: Medium Current Visit: Yes (2) Acute cholecystitis SNOMED Code(s): 55472467 Code(s): K81.0 - ACUTE CHOLECYSTITIS Priority: High Current Visit: Yes (3) Abdominal pain SNOMED Code(s): 84671703 Code(s): R10.9 - UNSPECIFIED ABDOMINAL PAIN Priority: Medium Current Visit: No Qualifiers: Abdominal location: epigastric Qualified Code(s): R10.13 - Epigastric pain (4) Cholelithiasis SNOMED Code(s): 890529929 Code(s): K80.20 - CALCULUS OF GALLBLADDER W/O CHOLECYSTITIS W/O OBSTRUCTION Current Visit: Yes Qualifiers: Cholelithiasis location: gallbladder Cholecystitis presence: with cholecystitis Cholecystitis acuity: acute Biliary obstruction: without biliary obstruction Qualified Code(s): K80.00 - Calculus of gallbladder with acute cholecystitis without obstruction Problem List Initiated/Reviewed/Updated: Yes Plan: Patient has been symptomatic, more than 72 hours. This increases the possibility of requiring an open cholecystectomy. Additionally, it appears the gallbladder is adherent to the duodenum which also increases his risk for an open procedure. Given his mild hyperbilirubinemia, consideration might be given to an MRCP to rule out a small common bile duct stone. If his symptoms don't resolve with antibiotic therapy, consideration may also need to be given to placement of a cholecystostomy tube to try and quiet the inflammatory process down.
[2019-01-05] MEDS: Pantoprazole 40 MG in Sodium Chloride 0.9% 10 ML IVPUSH SCH (09:32)
--- NOTE | 2019-01-05 10:20 | CR ---
EXAM DATE: 01/05/19 PATIENT'S AGE: 58 Patient: HARRY AMAYA Facility: [facility] Site . Site : 1960 Study: XRay-Abdomen [id number]/3/2019 4:24:04 AM Ordering Physician: Felton Marquez Final Report: INDICATION: Abdominal pain TECHNIQUE: Chest 1 view in two views abdomen. COMPARISON: 12/04/2018 FINDINGS: Cardiovascular and mediastinum: Heart size and vasculature are normal in caliber and appearance. Mediastinum is within normal limits. Lungs and pleural space: Lungs are clear. No sign of infiltrate or mass. No sign of pleural effusion. No pneumothorax. Bones and soft tissues: No significant findings. Abdomen: Call contrast identified in the transverse, descending and sigmoid colon. Retained colonic stool involving the ascending colon. Minimal air distended small bowel loops left mid abdomen. IMPRESSION: Retained stool involving the ascending colon. Dictated by Sheng Martínez MD @ 01/05/2019 4:27:54 AM Dictated by: Sheng Martínez MD @ 01/05/2019 04:28:01 Signed by: Sheng Martínez MD @01/05/2019 4:28:01 AM (Electronic Signature) Report Signed by Proxy. JEAN-PIERRE
--- NOTE | 2019-01-05 10:21 | CT ---
EXAM DATE: 01/05/19 PATIENT'S AGE: 58 Patient: HARRY AMAYA Facility: [facility] Site Site : 1960 Study: CT-Abdomen/Pelvis [id number]/3/2019 5:42:52 AM Ordering Physician: RADHA Final Report: INDICATION: Pain, elevated white blood cell count TECHNIQUE: CT abdomen and pelvis acquired with IV contrast. 100 cc Isovue 370 COMPARISON: 01/02/2019 FINDINGS: Lower chest: Unremarkable. Liver: Unremarkable. Spleen: Unremarkable. Pancreas: Unremarkable. Gallbladder and bile ducts: The gallbladder is distended, thick-walled with pericholecystic fluid and cholelithiasis normal common bile duct. Findings consistent with cholecystitis. Kidneys: Unremarkable. Adrenal glands: Unremarkable. GI tract: Thickened 2nd portion the duodenum most likely related to adjacent cholecystitis. Vascular structures: Unremarkable. Lymph nodes: Unremarkable. Miscellaneous: Unremarkable. No free air or significant free fluid. Pelvic Organs: Faint 1.7 centimeter per attenuated area involving the anterior wall of the urinary bladder. This can be further characterized with ultrasound or MRI on a nonemergent basis. Bones: Unremarkable for age. IMPRESSION: Distended thick-walled gallbladder with pericholecystic fluid and cholelithiasis. Findings consistent with cholecystitis. Faint 1.7 centimeter hyperattenuated involving the anterior wall of the urinary bladder best demonstrated on sagittal image 80. This can be better evaluated with ultrasound or MRI on a nonemergent basis. Dictated by Sheng Martínez MD @ 01/05/2019 5:59:31 AM Please note that all CT scans at this facility use dose modulation, iterative reconstruction, and/or weight-based dosing when appropriate to reduce radiation dose to as low as reasonably achievable. Dictated by: Sheng Martníez MD @ 01/05/2019 05:59:45 Signed by: Sheng Martínez MD @01/05/2019 5:59:45 AM (Electronic Signature) Report Signed by Proxy. [facility]
[2019-01-05] MEDS: Piperacillin/Tazobactam 4.5 GM in Sodium Chloride 0.9% 100 ML IV SCH ×3 (11:56→23:09)
[2019-01-05] MEDS ORDERED: Morphine 4 MG/ML Syringe IV PRN (21:15)
[2019-01-06] MEDS: Piperacillin/Tazobactam 4.5 GM in Sodium Chloride 0.9% 100 ML IV SCH ×2 (05:29→11:26)
[2019-01-06 06:22] LABS: CHLORIDE,CL 104 mmol/L (98-107); SODIUM,NA 138 mmol/L (136-148)
--- NOTE | 2019-01-06 08:07 | PCM.PN ---
- General Info Date of Service: 01/06/19 Admission Dx/Problem (Free Text): Admission Diagnosis/Problem Admission Diagnosis/Problem Cholecystitis - Patient Data Vitals - Most Recent: Last Vital Signs Temp 98.4 F 01/06/19 04:00 Pulse 85 01/06/19 04:00 Resp 18 01/06/19 04:00 BP 107/63 01/06/19 04:00 Pulse Ox 93 L 01/06/19 04:00 Weight - Most Recent: 85.638 kg I&O - Last 24 Hours: Intake & Output 01/05/19 01/06/19 01/06/19 22:59 06:59 14:59 Intake Total 1236 1247 Balance 1236 1247 Lab Results Last 24 Hours: Laboratory Results - last 24 hr 01/06/19 01/06/19 Range/Units 05:10 05:10 WBC 16.78 H (4.0-11.0) K/uL RBC 4.66 (4.50-5.90) M/uL Hgb 13.5 (13.0-17.0) g/dL Hct 41.5 (38.0-50.0) % MCV 89.1 (80.0-98.0) fL MCH 29.0 (27.0-32.0) pg MCHC 32.5 (31.0-37.0) g/dL RDW Std Deviation 47.5 (28.0-62.0) fl RDW Coeff of Fatuma 15 (11.0-15.0) % Plt Count 172 (150-400) K/uL MPV 11.40 (7.40-12.00) fL Neut % (Auto) 83.8 H (48.0-80.0) % Lymph % (Auto) 8.5 L (16.0-40.0) % [place] % (Auto) 7.3 (0.0-15.0) % Eos % (Auto) 0.3 (0.0-7.0) % Baso % (Auto) 0.1 (0.0-1.5) % Neut # (Auto) 14.1 H (1.4-5.7) K/uL Lymph # (Auto) 1.4 (0.6-2.4) K/uL [place] # (Auto) 1.2 H (0.0-0.8) K/uL Eos # (Auto) 0.1 (0.0-0.7) K/uL Baso # (Auto) 0.0 (0.0-0.1) K/uL Nucleated RBC % 0.0 /100WBC Nucleated RBCs # 0 K/uL Sodium 138 (136-148) mmol/L Potassium 3.5 (3.5-5.1) mmol/L Chloride 104 (98-107) mmol/L Carbon Dioxide 24.2 (21.0-32.0) mmol/L BUN 10 (7.0-18.0) mg/dL Creatinine 1.1 (0.8-1.3) mg/dL Est Cr Clr Drug Dosing 67.67 mL/min Estimated GFR (MDRD) > 60.0 ml/min Glucose 112 H (74-106) mg/dL Calcium 8.9 (8.5-10.1) mg/dL Total Bilirubin 1.5 H (0.2-1.0) mg/dL AST 28 (15-37) IU/L ALT 37 (14-63) IU/L Alkaline Phosphatase 150 H (46-116) U/L Total Protein 6.2 L (6.4-8.2) g/dL Albumin 2.3 L (3.4-5.0) g/dL Globulin 3.9 (2.6-4.0) g/dL Albumin/Globulin Ratio 0.6 L (0.9-1.6) Med Orders - Current: Current Medications Enoxaparin Sodium (Lovenox) 40 mg SUBCUT Q24H [facility] Lactated Ringer's (Ringers, Lactated) 1,000 mls @ 125 mls/hr IV ASDIRECTED [facility] Last Admin: 01/05/19 23:09 Dose: 125 mls/hr Piperacillin Sod/Tazobactam (Sod 4.5 gm/ Sodium Chloride) 100 mls @ 100 mls/hr IV Q6H [facility] Last Admin: 01/06/19 05:29 Dose: 100 mls/hr Pantoprazole Sodium 40 mg/ (Sodium Chloride) 10 mls @ 300 mls/hr IVPUSH Q24H [facility] Last Admin: 01/05/19 09:32 Dose: 300 mls/hr Morphine Sulfate (Morphine) 3 mg IV Q2H PRN PRN Reason: Pain (severe 7-10) Ondansetron HCl (Zofran) 4 mg IVPUSH Q4H PRN PRN Reason: Nausea Sodium Chloride (Saline Flush) 10 ml FLUSH ASDIRECTED PRN PRN Reason: Keep Vein Open Sodium Chloride (Saline Flush) 2.5 ml FLUSH ASDIRECTED PRN PRN Reason: Keep Vein Open Discontinued Medications Dicyclomine HCl (Bentyl) 10 mg PO ONETIME ONE Stop: 01/05/19 03:48 Last Admin: 01/05/19 04:16 Dose: 10 mg Sodium Chloride (Normal Saline) 1,000 mls @ 999 mls/hr IV STAT ONE Stop: 01/05/19 05:00 Last Admin: 01/05/19 04:16 Dose: 999 mls/hr Piperacillin Sod/Tazobactam (Sod 3.375 gm/ Sodium Chloride) 50 mls @ 100 mls/ hr IV ONETIME ONE Stop: 01/05/19 06:36 Last Admin: 01/05/19 06:16 Dose: 100 mls/hr Iopamidol (Isovue Multipack-370 (76%)) 100 ml IVPUSH ONETIME STA Stop: 01/05/19 05:17 Last Admin: 01/05/19 05:17 Dose: 100 ml Morphine Sulfate (Morphine) 4 mg IVPUSH ONETIME ONE Stop: 01/05/19 05:45 Last Admin: 01/05/19 05:50 Dose: 4 mg Morphine Sulfate (Morphine Sulfate) 3 mg IV Q2H PRN PRN Reason: Pain (severe 7-10) Last Admin: 01/05/19 13:15 Dose: 3 mg Ondansetron HCl (Zofran) 4 mg IVPUSH ONETIME ONE Stop: 01/05/19 05:45 Last Admin: 01/05/19 05:50 Dose: 4 mg Tramadol HCl (Ultram) 50 mg PO ONETIME ONE Stop: 01/05/19 03:48 Last Admin: 01/05/19 04:15 Dose: 50 mg - Problem List & Annotations (1) Acute cholecystitis SNOMED Code(s): 30049074 Code(s): K81.0 - ACUTE CHOLECYSTITIS Status: Acute Priority: High Current Visit: Yes (2) Cholelithiasis SNOMED Code(s): 500658570 Code(s): K80.20 - CALCULUS OF GALLBLADDER W/O CHOLECYSTITIS W/O OBSTRUCTION Status: Acute Current Visit: Yes Qualifiers: Cholelithiasis location: gallbladder Cholecystitis presence: with cholecystitis Cholecystitis acuity: acute Biliary obstruction: without biliary obstruction Qualified Code(s): K80.00 - Calculus of gallbladder with acute cholecystitis without obstruction (3) Hyperbilirubinemia SNOMED Code(s): 74309146 Code(s): E80.6 - OTHER DISORDERS OF BILIRUBIN METABOLISM Status: Acute Priority: Medium Current Visit: Yes (4) Abdominal pain SNOMED Code(s): 90445640 Code(s): R10.9 - UNSPECIFIED ABDOMINAL PAIN Status: Acute Priority: Medium Current Visit: No Qualifiers: Abdominal location: epigastric Qualified Code(s): R10.13 - Epigastric pain - My Orders Last 24 Hours: My Active Orders 01/05/19 08:14 Blood Culture x2 Reflex Set [OM.PC] Stat 01/05/19 08:16 May Shower [RC] ASDIRECTED Oxygen Therapy [RC] PRN Up ad Thea [RC] ASDIRECTED VTE/DVT Education [RC] PER UNIT ROUTINE Vital Signs [RC] Q4H Resuscitation Status Routine 01/05/19 08:17 Antiembolic Devices [RC] PER UNIT ROUTINE Intake and Output [RC] Q12H Sequential Compression Device [OM.PC] Per Unit Routine 01/05/19 08:20 Ondansetron [Zofran] 4 mg IVPUSH Q4H PRN 01/05/19 08:58 CULTURE BLOOD [BC] Stat 01/05/19 09:00 Pantoprazole [ProTONIX IV] 40 mg Sodium Chloride 0.9% [Normal Saline] 10 ml IVPUSH Q24H 01/05/19 09:18 CULTURE BLOOD [BC] Stat 01/05/19 12:00 Piperacillin/Tazobactam [Piperacil-Tazobact] 4.5 gm Sodium Chloride 0.9% [ Normal Saline] 100 ml IV Q6H 01/05/19 21:15 Morphine 3 mg IV Q2H PRN 01/06/19 08:03 Abdomen w Cont [MR] Urgent 01/06/19 08:15 Enoxaparin [Lovenox] 40 mg SUBCUT Q24H 01/07/19 05:11 CBC WITH AUTO DIFF [HEME] AM COMPREHENSIVE METABOLIC PN,CMP [CHEM] AM 01/08/19 05:11 CBC WITH AUTO DIFF [HEME] AM COMPREHENSIVE METABOLIC PN,CMP [CHEM] AM - Plan Plan:: This 58 year old female admitted with acute cholecystitis and cholelithiasis 1. Acute cholecystitis: Consulted Dr Boss, we appreciate his assistance with this patient. Continue Zosyn. BC obtained. Repeat labwork in am. NPO, Protonix IV daily, Zofran and Morphine PRN. Consider MRCP if bilirubin remains elevated. VTE prophylaxis: SCDs Dispo: 2-3 days
[2019-01-06] MEDS ORDERED: Enoxaparin 40 MG/0.4 ML Syringe SUBCUT SCH (08:15)
[2019-01-06] MEDS ORDERED: Gadobenate Dimeglumine 529 MG/ML 20 ML SDV IVPUSH STA (08:39)
[2019-01-06] MEDS: Pantoprazole 40 MG in Sodium Chloride 0.9% 10 ML IVPUSH SCH (09:19)
[2019-01-06 09:32] VITALS: BP 112/64
[2019-01-06] MEDS: Lactated Ringers 1,000 ML IV SCH (10:03)
--- NOTE | 2019-01-06 10:16 | MR ---
EXAMINATION: MRI of the abdomen with and without contrast HISTORY: Cholecystitis COMPARISON: CT dated 01/05/2019 TECHNIQUE: Multiplanar and multisequence imaging obtained through the abdomen before and following the administration of 17 mL of MultiHance. FINDINGS: There is increased hyperemia and enhancement of the liver near the gallbladder fossa otherwise the liver is normal in signal. The adrenal glands, pancreas, and spleen are normal. There is increased gallbladder wall thickening with pericholecystic fluid. There are focal areas of wall thinning within the fundus also noted. The common bile duct appears normal caliber. Definitive cholelithiasis is not noted. However there is possibly a cholelithiasis noted on the recent CT, image 49 series 201 within the cystic duct. The kidneys enhance and function symmetrically without evidence of obstructive uropathy. Visualized large and small bowel are normal in caliber without evidence of obstruction. IMPRESSION: 1. Thickened and irregular gallbladder wall with pericholecystic fluid. Focal thinning is noted along the fundus, this could suggest early gangrenous changes with sloughing of mucosa. 2. The common bile duct appears normal in caliber without a definite filling defect..
--- NOTE | 2019-01-06 11:05 | PCM.CONSN ---
- General Info Date of Service: 01/06/19 Admission Dx/Problem (Free Text): Acute cholecystitis w/ cholelithiasis Functional Status: Reports: Pain Controlled, Ambulating, Urinating - Review of Systems General: Reports: Weakness, Fatigue. Denies: Fever, Chills HEENT: Reports: No Symptoms Pulmonary: Denies: Shortness of Breath, Pleuritic Chest Pain, Cough Cardiovascular: Denies: Chest Pain Gastrointestinal: Reports: Abdominal Pain, Decreased Appetite, Flatus. Denies: Diarrhea, Nausea, Vomiting Genitourinary: Reports: No Symptoms Musculoskeletal: Reports: No Symptoms Skin: Reports: No Symptoms Neurological: Reports: No Symptoms Psychiatric: Reports: No Symptoms - Patient Data Vitals - Most Recent: Last Vital Signs Temp 98.3 F 01/06/19 08:00 Pulse 81 01/06/19 08:00 Resp 16 01/06/19 08:00 BP 112/64 01/06/19 08:00 Pulse Ox 94 L 01/06/19 08:00 Weight - Most Recent: 188 lb 12.8 oz I&O - Last 24 Hours: Intake & Output 01/05/19 01/06/19 01/06/19 19:59 03:59 11:59 Intake Total 1236 1247 Balance 1236 1247 Lab Results Last 24 Hours: Laboratory Results - last 24 hr 01/06/19 01/06/19 Range/Units 05:10 05:10 WBC 16.78 H (4.0-11.0) K/uL RBC 4.66 (4.50-5.90) M/uL Hgb 13.5 (13.0-17.0) g/dL Hct 41.5 (38.0-50.0) % MCV 89.1 (80.0-98.0) fL MCH 29.0 (27.0-32.0) pg MCHC 32.5 (31.0-37.0) g/dL RDW Std Deviation 47.5 (28.0-62.0) fl RDW Coeff of Fatuma 15 (11.0-15.0) % Plt Count 172 (150-400) K/uL MPV 11.40 (7.40-12.00) fL Neut % (Auto) 83.8 H (48.0-80.0) % Lymph % (Auto) 8.5 L (16.0-40.0) % [place] % (Auto) 7.3 (0.0-15.0) % Eos % (Auto) 0.3 (0.0-7.0) % Baso % (Auto) 0.1 (0.0-1.5) % Neut # (Auto) 14.1 H (1.4-5.7) K/uL Lymph # (Auto) 1.4 (0.6-2.4) K/uL [place] # (Auto) 1.2 H (0.0-0.8) K/uL Eos # (Auto) 0.1 (0.0-0.7) K/uL Baso # (Auto) 0.0 (0.0-0.1) K/uL Nucleated RBC % 0.0 /100WBC Nucleated RBCs # 0 K/uL Sodium 138 (136-148) mmol/L Potassium 3.5 (3.5-5.1) mmol/L Chloride 104 (98-107) mmol/L Carbon Dioxide 24.2 (21.0-32.0) mmol/L BUN 10 (7.0-18.0) mg/dL Creatinine 1.1 (0.8-1.3) mg/dL Est Cr Clr Drug Dosing 67.67 mL/min Estimated GFR (MDRD) > 60.0 ml/min Glucose 112 H (74-106) mg/dL Calcium 8.9 (8.5-10.1) mg/dL Total Bilirubin 1.5 H (0.2-1.0) mg/dL AST 28 (15-37) IU/L ALT 37 (14-63) IU/L Alkaline Phosphatase 150 H (46-116) U/L Total Protein 6.2 L (6.4-8.2) g/dL Albumin 2.3 L (3.4-5.0) g/dL Globulin 3.9 (2.6-4.0) g/dL Albumin/Globulin Ratio 0.6 L (0.9-1.6) Levy Results Last 24 Hours: Microbiology 01/05/19 09:18 Aerobic Blood Culture - Preliminary Blood - Venous - Lab Draw NO GROWTH AFTER 1 DAY Anaerobic Blood Culture - Preliminary NO GROWTH AFTER 1 DAY 01/05/19 08:58 Aerobic Blood Culture - Preliminary Blood - Venous NO GROWTH AFTER 1 DAY Anaerobic Blood Culture - Preliminary NO GROWTH AFTER 1 DAY Med Orders - Current: Current Medications Enoxaparin Sodium (Lovenox) 40 mg SUBCUT Q24H [facility] Last Admin: 01/06/19 09:18 Dose: 40 mg Lactated Ringer's (Ringers, Lactated) 1,000 mls @ 125 mls/hr IV ASDIRECTED [facility] Last Admin: 01/06/19 10:03 Dose: 125 mls/hr Piperacillin Sod/Tazobactam (Sod 4.5 gm/ Sodium Chloride) 100 mls @ 100 mls/hr IV Q6H [facility] Last Admin: 01/06/19 05:29 Dose: 100 mls/hr Pantoprazole Sodium 40 mg/ (Sodium Chloride) 10 mls @ 300 mls/hr IVPUSH Q24H [facility] Last Admin: 01/06/19 09:19 Dose: 300 mls/hr Morphine Sulfate (Morphine) 3 mg IV Q2H PRN PRN Reason: Pain (severe 7-10) Last Admin: 01/06/19 10:38 Dose: 3 mg Ondansetron HCl (Zofran) 4 mg IVPUSH Q4H PRN PRN Reason: Nausea Sodium Chloride (Saline Flush) 10 ml FLUSH ASDIRECTED PRN PRN Reason: Keep Vein Open Sodium Chloride (Saline Flush) 2.5 ml FLUSH ASDIRECTED PRN PRN Reason: Keep Vein Open Discontinued Medications Dicyclomine HCl (Bentyl) 10 mg PO ONETIME ONE Stop: 01/05/19 03:48 Last Admin: 01/05/19 04:16 Dose: 10 mg Gadobenate Dimeglumine (Multihance) 20 ml IVPUSH ONETIME STA Stop: 01/06/19 08:40 Last Admin: 01/06/19 08:44 Dose: 17 ml Sodium Chloride (Normal Saline) 1,000 mls @ 999 mls/hr IV STAT ONE Stop: 01/05/19 05:00 Last Admin: 01/05/19 04:16 Dose: 999 mls/hr Piperacillin Sod/Tazobactam (Sod 3.375 gm/ Sodium Chloride) 50 mls @ 100 mls/ hr IV ONETIME ONE Stop: 01/05/19 06:36 Last Admin: 01/05/19 06:16 Dose: 100 mls/hr Iopamidol (Isovue Multipack-370 (76%)) 100 ml IVPUSH ONETIME STA Stop: 01/05/19 05:17 Last Admin: 01/05/19 05:17 Dose: 100 ml Morphine Sulfate (Morphine) 4 mg IVPUSH ONETIME ONE Stop: 01/05/19 05:45 Last Admin: 01/05/19 05:50 Dose: 4 mg Morphine Sulfate (Morphine Sulfate) 3 mg IV Q2H PRN PRN Reason: Pain (severe 7-10) Last Admin: 01/05/19 13:15 Dose: 3 mg Ondansetron HCl (Zofran) 4 mg IVPUSH ONETIME ONE Stop: 01/05/19 05:45 Last Admin: 01/05/19 05:50 Dose: 4 mg Tramadol HCl (Ultram) 50 mg PO ONETIME ONE Stop: 01/05/19 03:48 Last Admin: 01/05/19 04:15 Dose: 50 mg - Exam Quality Assessment: DVT Prophylaxis General: Alert, Oriented, Cooperative, Mild Distress HEENT: Pupils Equal, Pupils Reactive Neck: Supple Lungs: Clear to Auscultation, Normal Respiratory Effort Cardiovascular: Regular Rate, Regular Rhythm GI/Abdominal Exam: Normal Bowel Sounds, Soft, No Distention, Tender, Mass ( Gallbladder is palpable in RUQ). No: Guarding, Rigid, Rebound, Hernia (Male) Exam: No Hernia Back Exam: Normal Inspection Extremities: Normal Inspection Peripheral Pulses: 4+: Posterior Tibial (L), Posterior Tibial (R), Dorsalis Pedis (L), Dorsalis Pedis (R) Skin: Warm, Dry, Intact Wound/Incisions: Healing Well Neurological: No New Focal Deficit Psy/Mental Status: Alert, Normal Affect, Normal Mood Consult PN Assessment/Plan Procedures: Procedures ASSAY OF AMYLASE (08/16/18) ASSAY OF LIPASE (01/02/19) ASSAY OF TROPONIN QUANT (01/02/19) CHEST X-RAY 2VW FRONTAL&LATL (12/05/16) COMPLETE CBC W/AUTO DIFF WBC (01/02/19) COMPREHEN METABOLIC PANEL (01/02/19) CONTRST X-RAY UPPR GI TRACT (12/30/18) CT ABD & PELV W/CONTRAST (01/02/19) ECHO EXAM OF ABDOMEN (01/02/19) ELECTROCARDIOGRAM TRACING (08/16/18) EMERGENCY DEPT VISIT (01/02/19) EMERGENCY DEPT VISIT (10/21/18) EMERGENCY DEPT VISIT (08/16/18) EMERGENCY DEPT VISIT (12/05/16) GLYCOSYLATED HEMOGLOBIN TEST (08/23/18) HELICOBACTER PYLORI ANTIBODY (08/16/18) HPYLORI STOOL IA (09/30/18) HYDRATE IV INFUSION ADD-ON (01/02/19) INFLUENZA ASSAY W/OPTIC (10/21/18) LIPID PANEL (09/30/18) PROTHROMBIN TIME (12/05/16) ROUTINE VENIPUNCTURE (09/30/18) THER/PROPH/DIAG INJ IV PUSH (01/02/19) TX/PRO/DX INJ NEW DRUG ADDON (01/02/19) URINALYSIS AUTO W/SCOPE (01/02/19) X-RAY EXAM CHEST 2 VIEWS (10/21/18) X-RAY EXAM HIP UNI 2-3 VIEWS (12/05/16) X-RAY EXAM L-S SPINE 2/3 VWS (12/05/16) X-RAY EXAM SERIES ABDOMEN (08/16/18) (1) Hyperbilirubinemia SNOMED Code(s): 93867480 Code(s): E80.6 - OTHER DISORDERS OF BILIRUBIN METABOLISM Priority: Medium Current Visit: Yes (2) Acute cholecystitis SNOMED Code(s): 97067654 Code(s): K81.0 - ACUTE CHOLECYSTITIS Priority: High Current Visit: Yes (3) Abdominal pain SNOMED Code(s): 69640902 Code(s): R10.9 - UNSPECIFIED ABDOMINAL PAIN Priority: Medium Current Visit: No Qualifiers: Abdominal location: epigastric Qualified Code(s): R10.13 - Epigastric pain (4) Cholelithiasis SNOMED Code(s): 423830199 Code(s): K80.20 - CALCULUS OF GALLBLADDER W/O CHOLECYSTITIS W/O OBSTRUCTION Current Visit: Yes Qualifiers: Cholelithiasis location: gallbladder Cholecystitis presence: with cholecystitis Cholecystitis acuity: acute Biliary obstruction: without biliary obstruction Qualified Code(s): K80.00 - Calculus of gallbladder with acute cholecystitis without obstruction Problem List Initiated/Reviewed/Updated: Yes Plan: MRI report reviewed--again noted is gallbladder wall thickening with pericholecystic fluid. On CT scan gallbladder appears adhesed to the duodenum with thickening of the second portion of the duodenum. On MRI there is concern for a gangrenous cholecystitis. WBC down from 21K to 16K. Bilirubin still elevated at 1.5 but no obvious CBD stone on MRI. Given the concern for a gangrenous cholecystitis and the duration of symptoms, I would favor placement of a cholecystostomy tube for emergent decompression. Patient will require transfer to a larger facility for that procedure. He may still require emergent cholecystectomy with the concern for sepsis post-operatively.
--- NOTE | 2019-01-06 11:32 | PCM.DCSUM1 ---
Discharge Summary - Hospital Course Brief History: This 58 year old male with pmh of hyperlipidemia and recent abdominal pain, being seen as outpatient with Dr Boss, presented to the ED with complaints of RUQ pain along with nausea that started on Thursday. He reports a burning fullness sensation in his epigastric region and pain with a bulge to RUQ. He denies fevers, chills or diarrhea. No black on bloody BMs. No other abdominal pain, no vomiting. Reports appendectomy years ago. He reports smoking 1 ppd, no alcohol use and no recreational drug use. In the ED leukocytosis noted at 21,360, Lactate 1.1. Bili 1.6 AST 13, ALT 36, alk phose 11. Ua negative. Lipase 49, amylase 16. Abdominal CT reveals distended thick walled gallbladder with pericholecystic fluid and cholelithiasis, consistent with cholecystitis. He was treated with Zosyn and IV fluids. Dr Boss consulted. Diagnosis: Stroke: No - Discharge Data Discharge Date: 01/06/19 Discharge Disposition: DC/Tfer to Acute Hospital 02 Condition: Good - Discharge Diagnosis/Problem(s) (1) Acute cholecystitis SNOMED Code(s): 87038124 ICD Code: K81.0 - ACUTE CHOLECYSTITIS Status: Acute Priority: High Current Visit: Yes (2) Cholelithiasis SNOMED Code(s): 932548794 ICD Code: K80.20 - CALCULUS OF GALLBLADDER W/O CHOLECYSTITIS W/O OBSTRUCTION Status: Acute Current Visit: Yes Qualifiers: Cholelithiasis location: gallbladder Cholecystitis presence: with cholecystitis Cholecystitis acuity: acute Biliary obstruction: without biliary obstruction Qualified Code(s): K80.00 - Calculus of gallbladder with acute cholecystitis without obstruction (3) Hyperbilirubinemia SNOMED Code(s): 54788546 ICD Code: E80.6 - OTHER DISORDERS OF BILIRUBIN METABOLISM Status: Acute Priority: Medium Current Visit: Yes (4) Abdominal pain SNOMED Code(s): 71621367 ICD Code: R10.9 - UNSPECIFIED ABDOMINAL PAIN Status: Acute Priority: Medium Current Visit: No Qualifiers: Abdominal location: epigastric Qualified Code(s): R10.13 - Epigastric pain - Patient Summary/Data Consults: Consultations 01/05/19 06:08 Consult to Physician [CONS] Stat - Patient Instructions Diet: NPO - Discharge Plan *PRESCRIPTION DRUG MONITORING PROGRAM REVIEWED*: Not Applicable *COPY OF PRESCRIPTION DRUG MONITORING REPORT IN PATIENT MARLO: Not Applicable Home Medications: Home Meds Lactated Ringers [Ringers, Lactated] 125 ml IV ASDIRECTED bag 01/06/19 [Rx] Piperacillin/Tazobactam [Piperacil-Tazobact] 4.5 gm IV Q6H adv 01/06/19 [Rx] Forms: ED Department Discharge Referrals: PCP,None [Primary Care Provider] - - Discharge Summary/Plan Comment DC Time >30 min.: No Discharge Summary/Plan Comment: Discharge Diagnoses: Acute cholecystitis with possible gangrenous changes Hx Hyperlipidemia Anthony was admitted and treated with Zosyn and IVFs. he has remained on bowel rest during this time. Pain today is about the same 4-510. Bilirubin 1.5, no change from yesterday. Discussed with Dr Boss and he recommended MRCP this morning. This revealed thickened and irregular gallbladder wall with the pericholecystetic fluid, focal thinning is noted along the fundus, this could suggest early gangrenous changes with sloughing of mucosa. Dr Boss recommended transfer to a higher level of care for possible cholecystostomy tube or cholecystectomy. I spoke with Dr Meehan in the ED regarding transfer, he will accept as long as I speak with the surgeon. I spoke with Dr Sandra, surgeon, regarding transfer and he requested to speak with Dr Boss. Those two spoke and transfer was accepted. He will be transferred to [facility] in [place] via EMS today, continuing IVFs during transfer. Just received dose of Zosyn prior to leaving our facility as well. Anthony agrees with treatment plan and is agreeable to transfer. 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 - General Info Date of Service: 01/06/19 Admission Dx/Problem (Free Text: Acute cholecystitis w/ cholelithiasis Subjective Update: Continues to have RUQ pain 4-5/10. No chest pain or SOB. No diarrhea, passing flatus. Functional Status: Reports: Pain Controlled, Ambulating, Urinating - Review of Systems General: Reports: Malaise. Denies: Fever, Fatigue HEENT: Reports: No Symptoms. Denies: Headaches, Sore Throat, Visual Changes Pulmonary: Reports: No Symptoms. Denies: Shortness of Breath Cardiovascular: Reports: No Symptoms. Denies: Chest Pain Gastrointestinal: Reports: Abdominal Pain (RUQ), Flatus. Denies: Nausea, Vomiting Genitourinary: Reports: No Symptoms Musculoskeletal: Reports: No Symptoms Skin: Reports: No Symptoms Neurological: Reports: No Symptoms Psychiatric: Reports: No Symptoms - Patient Data Vitals - Most Recent: Last Vital Signs Temp 98.3 F 01/06/19 08:00 Pulse 81 01/06/19 08:00 Resp 16 01/06/19 08:00 BP 112/64 01/06/19 08:00 Pulse Ox 94 L 01/06/19 08:00 Weight - Most Recent: 85.638 kg I&O - Last 24 hours: Intake & Output 01/05/19 01/06/19 01/06/19 22:59 06:59 14:59 Intake Total 1236 1247 Balance 1236 1247 Lab Results - Last 24 hrs: Laboratory Results - last 24 hr 01/06/19 01/06/19 Range/Units 05:10 05:10 WBC 16.78 H (4.0-11.0) K/uL RBC 4.66 (4.50-5.90) M/uL Hgb 13.5 (13.0-17.0) g/dL Hct 41.5 (38.0-50.0) % MCV 89.1 (80.0-98.0) fL MCH 29.0 (27.0-32.0) pg MCHC 32.5 (31.0-37.0) g/dL RDW Std Deviation 47.5 (28.0-62.0) fl RDW Coeff of Fatuma 15 (11.0-15.0) % Plt Count 172 (150-400) K/uL MPV 11.40 (7.40-12.00) fL Neut % (Auto) 83.8 H (48.0-80.0) % Lymph % (Auto) 8.5 L (16.0-40.0) % [place] % (Auto) 7.3 (0.0-15.0) % Eos % (Auto) 0.3 (0.0-7.0) % Baso % (Auto) 0.1 (0.0-1.5) % Neut # (Auto) 14.1 H (1.4-5.7) K/uL Lymph # (Auto) 1.4 (0.6-2.4) K/uL [place] # (Auto) 1.2 H (0.0-0.8) K/uL Eos # (Auto) 0.1 (0.0-0.7) K/uL Baso # (Auto) 0.0 (0.0-0.1) K/uL Nucleated RBC % 0.0 /100WBC Nucleated RBCs # 0 K/uL Sodium 138 (136-148) mmol/L Potassium 3.5 (3.5-5.1) mmol/L Chloride 104 (98-107) mmol/L Carbon Dioxide 24.2 (21.0-32.0) mmol/L BUN 10 (7.0-18.0) mg/dL Creatinine 1.1 (0.8-1.3) mg/dL Est Cr Clr Drug Dosing 67.67 mL/min Estimated GFR (MDRD) > 60.0 ml/min Glucose 112 H (74-106) mg/dL Calcium 8.9 (8.5-10.1) mg/dL Total Bilirubin 1.5 H (0.2-1.0) mg/dL AST 28 (15-37) IU/L ALT 37 (14-63) IU/L Alkaline Phosphatase 150 H (46-116) U/L Total Protein 6.2 L (6.4-8.2) g/dL Albumin 2.3 L (3.4-5.0) g/dL Globulin 3.9 (2.6-4.0) g/dL Albumin/Globulin Ratio 0.6 L (0.9-1.6) ALBERTO Results - Last 24 hrs: Microbiology 01/05/19 09:18 Aerobic Blood Culture - Preliminary Blood - Venous - Lab Draw NO GROWTH AFTER 1 DAY Anaerobic Blood Culture - Preliminary NO GROWTH AFTER 1 DAY 01/05/19 08:58 Aerobic Blood Culture - Preliminary Blood - Venous NO GROWTH AFTER 1 DAY Anaerobic Blood Culture - Preliminary NO GROWTH AFTER 1 DAY Med Orders - Current: Current Medications Enoxaparin Sodium (Lovenox) 40 mg SUBCUT Q24H [facility] Last Admin: 01/06/19 09:18 Dose: 40 mg Lactated Ringer's (Ringers, Lactated) 1,000 mls @ 125 mls/hr IV ASDIRECTED [facility] Last Admin: 01/06/19 10:03 Dose: 125 mls/hr Piperacillin Sod/Tazobactam (Sod 4.5 gm/ Sodium Chloride) 100 mls @ 100 mls/hr IV Q6H [facility] Last Admin: 01/06/19 05:29 Dose: 100 mls/hr Pantoprazole Sodium 40 mg/ (Sodium Chloride) 10 mls @ 300 mls/hr IVPUSH Q24H PATRICK Last Admin: 01/06/19 09:19 Dose: 300 mls/hr Morphine Sulfate (Morphine) 3 mg IV Q2H PRN PRN Reason: Pain (severe 7-10) Last Admin: 01/06/19 10:38 Dose: 3 mg Ondansetron HCl (Zofran) 4 mg IVPUSH Q4H PRN PRN Reason: Nausea Sodium Chloride (Saline Flush) 10 ml FLUSH ASDIRECTED PRN PRN Reason: Keep Vein Open Sodium Chloride (Saline Flush) 2.5 ml FLUSH ASDIRECTED PRN PRN Reason: Keep Vein Open Discontinued Medications Dicyclomine HCl (Bentyl) 10 mg PO ONETIME ONE Stop: 01/05/19 03:48 Last Admin: 01/05/19 04:16 Dose: 10 mg Gadobenate Dimeglumine (Multihance) 20 ml IVPUSH ONETIME STA Stop: 01/06/19 08:40 Last Admin: 01/06/19 08:44 Dose: 17 ml Sodium Chloride (Normal Saline) 1,000 mls @ 999 mls/hr IV STAT ONE Stop: 01/05/19 05:00 Last Admin: 01/05/19 04:16 Dose: 999 mls/hr Piperacillin Sod/Tazobactam (Sod 3.375 gm/ Sodium Chloride) 50 mls @ 100 mls/ hr IV ONETIME ONE Stop: 01/05/19 06:36 Last Admin: 01/05/19 06:16 Dose: 100 mls/hr Iopamidol (Isovue Multipack-370 (76%)) 100 ml IVPUSH ONETIME STA Stop: 01/05/19 05:17 Last Admin: 01/05/19 05:17 Dose: 100 ml Morphine Sulfate (Morphine) 4 mg IVPUSH ONETIME ONE Stop: 01/05/19 05:45 Last Admin: 01/05/19 05:50 Dose: 4 mg Morphine Sulfate (Morphine Sulfate) 3 mg IV Q2H PRN PRN Reason: Pain (severe 7-10) Last Admin: 01/05/19 13:15 Dose: 3 mg Ondansetron HCl (Zofran) 4 mg IVPUSH ONETIME ONE Stop: 01/05/19 05:45 Last Admin: 01/05/19 05:50 Dose: 4 mg Tramadol HCl (Ultram) 50 mg PO ONETIME ONE Stop: 01/05/19 03:48 Last Admin: 01/05/19 04:15 Dose: 50 mg - Exam General: Reports: Alert, Oriented, Cooperative Neck: Reports: Supple Lungs: Reports: Clear to Auscultation, Normal Respiratory Effort Cardiovascular: Reports: Regular Rate, Regular Rhythm GI/Abdominal Exam: Normal Bowel Sounds, Tender (RUQ) Extremities: Normal Inspection, Normal Range of Motion, Non-Tender Skin: Reports: Warm, Dry Neurological: Reports: No New Focal Deficit Psy/Mental Status: Reports: Alert, Normal Affect, Normal Mood
== END 2019-01-06 11:45 ==
LOC: MW.ED 03:25 → MW.MS 06:16
PROVIDERS: ADMIT Internal Medicine; ATTEND Internal Medicine
DX: K80.00 Calculus of gallbladder with acute cholecystitis without obstruction (principal); E80.6 Other disorders of bilirubin metabolism; E78.00 Pure hypercholesterolemia, unspecified; E66.9 Obesity, unspecified; Z68.30 Body mass index [BMI] 30.0-30.9, adult; F17.210 Nicotine dependence, cigarettes, uncomplicated; Z79.899 Other long term (current) drug therapy
CPT/HCPCS: 36415; 74022; 74177; 74183; 80053; 81001; 82150; 83605; 83690; 85025; 87040; 96361; 96365; 96366; 96372; 96375; 96376; 99285; A9270; A9577; C9113; G0378; J1650; J2270; J2405; J2543; J7030; J7040; J7050; J7120; Q9967; 99283

== ENCOUNTER 2020-11-08 12:05 | Emergency (ER) | payer SELFPAY ==
[2020-11-08] MEDS ORDERED: Ketorolac 15 MG/ML SDV IVPUSH ONE (12:06)
[2020-11-08] MEDS ORDERED: Sodium Chloride 0.9% 2.5 ML Syringe FLUSH PRN (12:06)
[2020-11-08] MEDS ORDERED: Ondansetron 4 MG/2 ML SDV IVPUSH ONE (12:06)
[2020-11-08] MEDS ORDERED: Sodium Chloride 0.9% 1,000 ML IV ONE (12:06)
[2020-11-08] MEDS ORDERED: Sodium Chloride 0.9% 10 ML Syringe FLUSH PRN (12:06)
--- NOTE | 2020-11-08 12:11 | EDM.PDOC ---
ED HPI GENERAL MEDICAL PROBLEM - General Chief Complaint: Flank Pain Stated Complaint: LOWER BACK PAIN Time Seen by Provider: 11/08/20 12:06 Source of Information: Reports: Patient History Limitations: Reports: No Limitations - History of Present Illness INITIAL COMMENTS - FREE TEXT/NARRATIVE: 60-year-old male with history of appendectomy, small bowel obstruction, cholecystectomy presents with left flank pain. Pain started last Thursday, gradual onset progressive worsening, described as sharp, constant and gets worse with movement. Pain radiates from the left flank up to the scapula. Currently rated 8/10. Denies fever, chills, dysuria, hematuria, nausea, vomiting. ROS: A 10-point review of systems, other than pertinent positives and negatives as stated per HPI, is otherwise negative Past medical history: No additional pertinent history Past Surgical history: No additional pertinent history Social history: No additional pertinent history Family history: No additional pertinent history PHYSICAL EXAM General: AOx4, GCS = 15, smiling in no distress HEENT: dry mucous membrane Neck: supple, no meningismus, no Kernig or Brudzinski Cardiac: S1S2 RRR Respiratory: CTAB, no crackles or rales, no wheezing Abdomen: Soft, nontender, no rebound or guarding, nondistended, no pulsatile mas s. Back: nontender to C/T/L-spine, mild tenderness and swelling to left lumbar paraspinal muscle. No CVA tenderness. Musculoskeletal: NVI distally, no deformity Neuro: No focal deficits, CN 2 - 12 WNL. left flank Pain Score (Numeric/FACES): 9 - Related Data Allergies Allergy/AdvReac Type Severity Reaction Status Date / Time No Known Allergies Allergy Verified 11/08/20 12:17 Home Meds: Home Meds Naproxen [Naprosyn] 500 mg PO Q12HR #30 tab 11/08/20 [Rx] Past Medical History - Past Health History Medical/Surgical History: Denies Medical/Surgical History HEENT History: Reports: None, Other (See Below) Other HEENT History: wears glasses Cardiovascular History: Reports: High Cholesterol Respiratory History: Reports: None. Denies: COPD Gastrointestinal History: Reports: Other (See Below) Other Gastrointestinal History: ulcer Genitourinary History: Reports: None. Denies: Chronic Renal Insuffiency Musculoskeletal History: Reports: None Neurological History: Reports: None. Denies: CVA, TIA Psychiatric History: Reports: None Endocrine/Metabolic History: Reports: Obesity/BMI 30+. Denies: Diabetes, Type II Hematologic History: Reports: None Immunologic History: Reports: None Oncologic (Cancer) History: Reports: None Dermatologic History: Reports: None - Infectious Disease History Infectious Disease History: Reports: Chicken Pox - Past Surgical History Head Surgeries/Procedures: Reports: None GI Surgical History: Reports: Appendectomy Other GI Surgeries/Procedures: Also states he has had a small bowel resection for "perforation". Isn't exactly sure what was done. Male Surgical History: Reports: None Social & Family History - Family History Family Medical History: No Pertinent Family History - Caffeine Use Caffeine Use: Reports: Coffee - Living Situation & Occupation Living situation: Reports: Occupation: Employed ED ROS GENERAL - Review of Systems Review Of Systems: See Below (see dictation) ED EXAM, GI/ABD - Physical Exam Exam: See Below (see dictation) Course - Vital Signs Last Recorded V/S: Last Vital Signs Temp 97 F 11/08/20 12:18 Pulse 60 11/08/20 12:18 Resp 16 11/08/20 12:18 BP 128/82 11/08/20 12:18 Pulse Ox 98 11/08/20 12:18 - Orders/Labs/Meds Orders: Active Orders 24 hr Category Date Time Status Cardiac Monitoring [RC] . DIRECTED Care 11/08/20 12:06 Active Sodium Chloride 0.9% [Saline Flush] Med 11/08/20 12:06 Active 10 ml FLUSH ASDIRECTED PRN Sodium Chloride 0.9% [Saline Flush] Med 11/08/20 12:06 Active 2.5 ml FLUSH ASDIRECTED PRN Saline Lock Insert [OM.PC] Stat Oth 11/08/20 12:06 Ordered Medication Orders Sodium Chloride (Saline Flush) 10 ml FLUSH ASDIRECTED PRN PRN Reason: Keep Vein Open Last Admin: 11/08/20 12:33 Dose: 10 ml Documented by: LANE Sodium Chloride (Saline Flush) 2.5 ml FLUSH ASDIRECTED PRN PRN Reason: Keep Vein Open Last Admin: 11/08/20 12:33 Dose: 2.5 ml Documented by: LANE Labs: Laboratory Tests 11/08/20 11/08/20 11/08/20 Range/Units 12:40 12:40 12:40 WBC 9.48 (4.0-11.0) K/uL RBC 5.61 (4.50-5.90) M/uL Hgb 17.6 H (13.0-17.0) g/dL Hct 50.6 H (38.0-50.0) % MCV 90.2 (80.0-98.0) fL MCH 31.4 (27.0-32.0) pg MCHC 34.8 (31.0-37.0) g/dL RDW Std Deviation 43.6 (28.0-62.0) fl RDW Coeff of Fatuma 13 (11.0-15.0) % Plt Count 258 (150-400) K/uL MPV 10.50 (7.40-12.00) fL Neut % (Auto) 71.7 (48.0-80.0) % Lymph % (Auto) 21.2 (16.0-40.0) % [place] % (Auto) 4.9 (0.0-15.0) % Eos % (Auto) 1.9 (0.0-7.0) % Baso % (Auto) 0.3 (0.0-1.5) % Neut # (Auto) 6.8 H (1.4-5.7) K/uL Lymph # (Auto) 2.0 (0.6-2.4) K/uL [place] # (Auto) 0.5 (0.0-0.8) K/uL Eos # (Auto) 0.2 (0.0-0.7) K/uL Baso # (Auto) 0.0 (0.0-0.1) K/uL Nucleated RBC % 0.0 /100WBC Nucleated RBCs # 0 K/uL Lactate 1.2 (0.20-2.00) mmol/L Sodium 141 (136-148) mmol/L Potassium 3.8 (3.5-5.1) mmol/L Chloride 104 (98-107) mmol/L Carbon Dioxide 25.1 (21.0-32.0) mmol/L BUN 8 (7.0-18.0) mg/dL Creatinine 1.1 (0.8-1.3) mg/dL Est Cr Clr Drug Dosing 66.06 mL/min Estimated GFR (MDRD) > 60.0 ml/min Glucose 108 H (74-106) mg/dL Calcium 9.7 (8.5-10.1) mg/dL Total Bilirubin 0.5 (0.2-1.0) mg/dL AST 14 L (15-37) IU/L ALT 19 (14-63) IU/L Alkaline Phosphatase 119 H (46-116) U/L Total Protein 7.5 (6.4-8.2) g/dL Albumin 4.0 (3.4-5.0) g/dL Globulin 3.5 (2.6-4.0) g/dL Albumin/Globulin Ratio 1.1 (0.9-1.6) Lipase 88 (73-393) U/L Urine Color Urine Appearance Urine pH (5.0-8.0) Ur Specific [place] (1.001-1.035) Urine Protein (NEGATIVE) mg/dL Urine Glucose (UA) (NEGATIVE) mg/dL Urine Ketones (NEGATIVE) mg/dL Urine Occult Blood (NEGATIVE) Urine Nitrite (NEGATIVE) Urine Bilirubin (NEGATIVE) Urine Urobilinogen (<2.0) EU/dL Ur Leukocyte Esterase (NEGATIVE) 11/08/20 Range/Units 14:18 WBC (4.0-11.0) K/uL RBC (4.50-5.90) M/uL Hgb (13.0-17.0) g/dL Hct (38.0-50.0) % MCV (80.0-98.0) fL MCH (27.0-32.0) pg MCHC (31.0-37.0) g/dL RDW Std Deviation (28.0-62.0) fl RDW Coeff of Fatuma (11.0-15.0) % Plt Count (150-400) K/uL MPV (7.40-12.00) fL Neut % (Auto) (48.0-80.0) % Lymph % (Auto) (16.0-40.0) % [place] % (Auto) (0.0-15.0) % Eos % (Auto) (0.0-7.0) % Baso % (Auto) (0.0-1.5) % Neut # (Auto) (1.4-5.7) K/uL Lymph # (Auto) (0.6-2.4) K/uL [place] # (Auto) (0.0-0.8) K/uL Eos # (Auto) (0.0-0.7) K/uL Baso # (Auto) (0.0-0.1) K/uL Nucleated RBC % /100WBC Nucleated RBCs # K/uL Lactate (0.20-2.00) mmol/L Sodium (136-148) mmol/L Potassium (3.5-5.1) mmol/L Chloride (98-107) mmol/L Carbon Dioxide (21.0-32.0) mmol/L BUN (7.0-18.0) mg/dL Creatinine (0.8-1.3) mg/dL Est Cr Clr Drug Dosing mL/min Estimated GFR (MDRD) ml/min Glucose (74-106) mg/dL Calcium (8.5-10.1) mg/dL Total Bilirubin (0.2-1.0) mg/dL AST (15-37) IU/L ALT (14-63) IU/L Alkaline Phosphatase (46-116) U/L Total Protein (6.4-8.2) g/dL Albumin (3.4-5.0) g/dL Globulin (2.6-4.0) g/dL Albumin/Globulin Ratio (0.9-1.6) Lipase (73-393) U/L Urine Color YELLOW Urine Appearance CLEAR Urine pH 6.0 (5.0-8.0) Ur Specific [place] 1.025 (1.001-1.035) Urine Protein NEGATIVE (NEGATIVE) mg/dL Urine Glucose (UA) NEGATIVE (NEGATIVE) mg/dL Urine Ketones NEGATIVE (NEGATIVE) mg/dL Urine Occult Blood NEGATIVE (NEGATIVE) Urine Nitrite NEGATIVE (NEGATIVE) Urine Bilirubin NEGATIVE (NEGATIVE) Urine Urobilinogen 0.2 (<2.0) EU/dL Ur Leukocyte Esterase NEGATIVE (NEGATIVE) Meds: Medications Generic Name Dose Route Start Last Admin Trade Name Yuan PRN Reason Stop Dose Admin Sodium Chloride 10 ml 11/08/20 12:06 11/08/20 12:33 Saline Flush FLUSH 10 ml ASDIRECTED PRN Administration Keep Vein Open Sodium Chloride 2.5 ml 11/08/20 12:06 11/08/20 12:33 Saline Flush FLUSH 2.5 ml ASDIRECTED PRN Administration Keep Vein Open Discontinued Medications Generic Name Dose Route Start Last Admin Trade Name Yuan PRN Reason Stop Dose Admin Sodium Chloride 1,000 mls @ 999 mls/hr 11/08/20 12:06 11/08/20 12:33 Normal Saline IV 11/08/20 13:06 999 mls/hr .Bolus ONE Administration Ketorolac Tromethamine 15 mg 11/08/20 12:06 11/08/20 12:33 Toradol IVPUSH 11/08/20 12:07 15 mg ONETIME ONE Administration Ondansetron HCl 4 mg 11/08/20 12:11/08/20 12:33 Zofran IVPUSH 11/08/20 12:07 4 mg ONETIME ONE Administration - Re-Assessments/Exams Free Text/Narrative Re-Assessment/Exam: 11/08/20 14:30 patient improved and is currently stable for discharge. I performed a repeat exam and did not appreciate new abnormal findings. Patient exhibits normal vital signs and has a normal gait on road test. I advised the patient to return to the ER for reevaluation if symptoms worsened, including fever, worsening pain, or any other worrisome symptoms. I instructed the patient to follow up with their PCP within 2-3 days. MEDICAL DECISION MAKING: I reviewed the patients past medical records, lab and radiographic findings. I discussed the case with the patient. My differential diagnosis included: Kidney stone, lumbar strain, ureterolithiasis. Patient is feeling better in the ED after medication. CT demonstrated mesenteric lymphadenopathy. I notified patient of incidental findings on their CT scan, and need for follow-up with PMD for further work-up to monitor this or determine significance of finding. Pt voiced understanding and questions were answered. His back pain is suggestive of musculoskeletal strain. There are no complaints of urinary or fecal incontinence, focal numbness or weakness. The patient has a normal gait in the ER. There is no evidence of fever, IV drug use, recent back surgery, or immunocompromised state. I do not suspect caude equine syndrome or cord compression which would warrant further imaging. Departure - Departure Time of Disposition: 14:31 Disposition: Home, Self-Care 01 Condition: Good Clinical Impression: Muscle strain, Mesenteric lymphadenopathy - Discharge Information *PRESCRIPTION DRUG MONITORING PROGRAM REVIEWED*: Not Applicable *COPY OF PRESCRIPTION DRUG MONITORING REPORT IN PATIENT MARLO: Not Applicable Prescriptions: Naproxen [Naprosyn] 500 mg PO Q12HR #30 tab Instructions: Flank Pain, Adult, [id number], Lymphadenopathy, Muscle Strain, [id number] Referrals: PCP,None [Primary Care Provider] - Forms: ED Department Discharge Additional Instructions: The need for follow-up, as well as the timing and circumstances, are variable depending upon the specifics of your emergency department visit. If you don't have a primary care physician on staff, we will provide you with a referral. We always advise you to contact your personal physician following an emergency department visit to inform them of the circumstance of the visit and for follow-up with them and/or the need for any referrals to a consulting specialist. The emergency department will also refer you to a specialist when appropriate. This referral assures that you have the opportunity for follow-up care with a specialist. All of these measure are taken in an effort to provide you with optimal care, which includes your follow-up. Under all circumstances we always encourage you to contact your private physician who remains a resource for coordinating your care. When calling for follow-up care, please make the office aware that this follow-up is from your re cent emergency room visit. If for any reason you are refused follow-up, please contact the [facility] Emergency Department at and asked to speak to the emergency department charge nurse. If you do not have a primary care doctor, please follow up with the clinics below within 3-5 days. [facility] - Primary Care [address] [place] [address] [facility] [address] [place] [address] Sepsis Event Note (ED) - Focused Exam Vital Signs: Vital Signs Temp Pulse Resp BP Pulse Ox 11/08/20 12:18 97 F 60 16 128/82 98 - My Orders Last 24 Hours: My Active Orders 11/08/20 12:06 Cardiac Monitoring [RC] . DIRECTED Sodium Chloride 0.9% [Saline Flush] 10 ml FLUSH ASDIRECTED PRN Sodium Chloride 0.9% [Saline Flush] 2.5 ml FLUSH ASDIRECTED PRN Saline Lock Insert [OM.PC] Stat - Assessment/Plan Last 24 Hours: My Active Orders 11/08/20 12:06 Cardiac Monitoring [RC] . DIRECTED Sodium Chloride 0.9% [Saline Flush] 10 ml FLUSH ASDIRECTED PRN Sodium Chloride 0.9% [Saline Flush] 2.5 ml FLUSH ASDIRECTED PRN Saline Lock Insert [OM.PC] Stat
[2020-11-08 13:20] LABS: BLOOD UREA NITROGEN,BUN 8 mg/dL (7.0-18.0); CARBON DIOXIDE,CO2 25.1 mmol/L (21.0-32.0); CHLORIDE,CL 104 mmol/L (98-107); GLUCOSE RANDOM 108 mg/dL (74-106); LIPASE 88 U/L (73-393); POTASSIUM,K 3.8 mmol/L (3.5-5.1); SODIUM,NA 141 mmol/L (136-148)
--- NOTE | 2020-11-08 14:16 | CT ---
INDICATION: Left flank pain TECHNIQUE: CT abdomen and pelvis without contrast. COMPARISON: January 05, 2019 FINDINGS: Lower chest: Stable right middle lobe subpleural pulmonary nodule image 13 series 202. Liver: Unremarkable. Spleen: Unremarkable. Pancreas: Unremarkable. Gallbladder and bile ducts: S/p cholecystectomy. Adrenal glands: Unremarkable. Kidneys: Unremarkable. No kidney or ureteral stones and no hydronephrosis. GI tract: Anastomotic suture seen within the small bowel loop in the anterior right abdomen. Appendix is surgically absent. Vascular structures: Minimal atherosclerotic disease. Lymph nodes: Unremarkable. Miscellaneous: There is some faint mesenteric fat stranding in the right mid abdomen with a few mesenteric lymph nodes in this region measuring up to 1.1 cm in size. No free air or significant free fluid. Pelvic Organs: Unremarkable. Bones: Unremarkable for age. IMPRESSION: No renal stone or hydronephrosis. Mild fat stranding and mesenteric lymphadenopathy in the right abdomen. This is nonspecific and could be related to inflammation. Metastatic disease cannot be entirely excluded. Correlate with patient history. Recommend follow-up CT to assure resolution of findings. Status post appendectomy and cholecystectomy. Please note that all CT scans at this facility use dose modulation, iterative reconstruction, and/or weight-based dosing when appropriate to reduce radiation dose to as low as reasonably achievable. Dictated by Violette Baca MD @ Nov 08 2020 1:54PM Signed by Dr. Violette Baca @ Nov 08 2020 2:15PM
[2020-11-08 15:43] VITALS: BP 128/79; PULSE 53
== END 2020-11-08 15:15 | disposition home or self-care (01) ==
LOC: MW.ED 12:05
DX: S39.012A Strain of muscle, fascia and tendon of lower back, initial encounter (principal); R59.0 Localized enlarged lymph nodes; E66.9 Obesity, unspecified; Z68.28 Body mass index [BMI] 28.0-28.9, adult; X58.XXXA Exposure to other specified factors, initial encounter
CPT/HCPCS: 36415; 74176; 80053; 81003; 83605; 83690; 85025; 96374; 96375; 99284; J1885; J2405; J7030; 99283

== ENCOUNTER 2021-10-14 08:12 | Day surgery (SDC) | payer BC ==
[~2021-10-14 08:12] MED LIST: Lactated Ringers 1,000 ML IV SCH
--- NOTE | 2021-10-14 08:41 | PCM.PREANE ---
Preanesthetic Assessment - Anesthesia/Transfusion/Family Hx Anesthesia History: Prior Anesthesia Without Reaction Transfusion History: No Prior Transfusion(s) - Review of Systems General: No Symptoms Pulmonary: No Symptoms Cardiovascular: No Symptoms Gastrointestinal: No Symptoms Neurological: No Symptoms Other: Reports: None - Physical Assessment NPO Status Date: 10/14/21 NPO Status Time: 00:00 Height: 5 ft 8 in Weight: 181 lb ASA Class: 3 Mental Status: Alert & Oriented x3 Dentition: Reports: Normal Dentition ROM/Head Extension: Full Lungs: Clear to Auscultation, Normal Respiratory Effort Cardiovascular: Regular Rate, Regular Rhythm - Allergies Allergies/Adverse Reactions: Allergies Allergy/AdvReac Type Severity Reaction Status Date / Time No Known Allergies Allergy Verified 10/08/21 11:17 PreAnesthesia Questionnaire - Past Health History Medical/Surgical History: Denies Medical/Surgical History HEENT History: Reports: Other (See Below) Other HEENT History: wears glasses Cardiovascular History: Reports: High Cholesterol Respiratory History: Reports: None Gastrointestinal History: Reports: Other (See Below) Other Gastrointestinal History: current epigastric pain Genitourinary History: Reports: None Musculoskeletal History: Reports: None Neurological History: Reports: None Psychiatric History: Reports: None Endocrine/Metabolic History: Reports: None Hematologic History: Reports: None Immunologic History: Reports: None Oncologic (Cancer) History: Reports: None Dermatologic History: Reports: None - Infectious Disease History Infectious Disease History: Reports: Chicken Pox - Past Surgical History Head Surgeries/Procedures: Reports: None GI Surgical History: Reports: Appendectomy, Cholecystectomy, Lysis of Adhesions, Small Bowel Other GI Surgeries/Procedures: release of SBO due to adhesions from Cholecystectomy Male Surgical History: Reports: None - SUBSTANCE USE Tobacco Use Status *Q: Current Every Day Tobacco User Tobacco Use Within Last Twelve Months: Cigarettes Recreational Drug Use History: No - HOME MEDS Home Medications: Home Meds Rosuvastatin Calcium 10 mg PO DAILY 10/08/21 [History] - CURRENT (IN HOUSE) MEDS Current Meds: Current Medications Lactated Ringer's (Ringers, Lactated) 1,000 mls @ 125 mls/hr IV ASDIRECTED [facility]
[2021-10-14] MEDS ORDERED: Midazolam 1 MG/ML 2 ML SDV ONE (08:52)
[2021-10-14] MEDS ORDERED: fentaNYL 100 MCG/2 ML SDV ONE (08:52)
[2021-10-14] MEDS ORDERED: Lidocaine 2% 5 ML SDV ONE (08:53)
[2021-10-14] MEDS ORDERED: Propofol 200 MG/20 ML SDV ONE (09:27)
[2021-10-14] MEDS ORDERED: Lactated Ringers 1,000 ML IV SCH (10:30)
--- NOTE | 2021-10-14 10:32 | PCM.OPNOTE ---
- General Post-Op/Procedure Note Date of Surgery/Procedure: 10/14/21 Operative Procedure(s): Esophagogastroduodenoscopy with antral biopsy. Colonoscopy. Pre Op Diagnosis: Abdominal pain. Desire for colorectal cancer screening. Post-Op Diagnosis: Moderate acute gastritis. No evidence of colonic neoplasia. Anesthesia Technique: MAC (ASA III) Primary Surgeon: Too Boss Cleaner Industrial: Coral Sue Condition: Good Free Text/Narrative:: DICTATION [id number] CPT CODE [id number]
--- NOTE | 2021-10-14 10:35 | PCM.POSTAN ---
POST ANESTHESIA ASSESSMENT - MENTAL STATUS Mental Status: Alert, Oriented - VITAL SIGNS Vital Signs: Last Vital Signs Temp 97.5 F 10/14/21 10:26 Pulse 51 L 10/14/21 10:31 Resp 12 10/14/21 10:31 BP 98/68 10/14/21 10:31 Pulse Ox 99 10/14/21 10:31 - RESPIRATORY Respiratory Status: Respiratory Rate WNL, Airway Patent, O2 Saturation Stable - CARDIOVASCULAR CV Status: Pulse Rate WNL, Blood Pressure Stable - GASTROINTESTINAL GI Status: No Symptoms - POST OP HYDRATION Hydration Status: Adequate & Stable
--- NOTE | 2021-10-14 10:36 | PCM48HPAN ---
Post Anesthesia Note - EVALUATION WITHIN 48HRS OF ANESTHETIC Vital Signs in Normal Range: Yes Patient Participated in Evaluation: Yes Respiratory Function Stable: Yes Airway Patent: Yes Cardiovascular Function Stable: Yes Hydration Status Stable: Yes Pain Control Satisfactory: Yes Nausea and Vomiting Control Satisfactory: Yes Mental Status Recovered: Yes Vital Signs: Last Vital Signs Temp 97.5 F 10/14/21 10:26 Pulse 51 L 10/14/21 10:31 Resp 12 10/14/21 10:31 BP 98/68 10/14/21 10:31 Pulse Ox 99 10/14/21 10:31
[2021-10-14 11:04] VITALS: BP 125/84; PULSE 49
--- NOTE | 2021-10-14 16:42 | OR ---
SURGEON: Too Boss M.D. DATE OF PROCEDURE: 10/14/2021 OPERATION PERFORMED: Esophagogastroduodenoscopy with biopsy. PRIMARY SURGEON: Too Boss M.D. DIAMOND POWDER MIXER: Mouthpiece Maker: Coral Sue NP student. ANESTHESIA: MAC. ASA CLASSIFICATION: III. PREOPERATIVE DIAGNOSIS: Abdominal pain. POSTOPERATIVE DIAGNOSIS: Acute gastritis. DESCRIPTION OF PROCEDURE: The patient was taken to the endoscopy room and positioned on the endoscopy table in the left lateral decubitus position. Time-out was called for appropriate identification of the patient and procedure. Monitored anesthesia care was provided. The bite block was placed between the patient's teeth. The gastroscope was inserted through the bite block and advanced without difficulty through the esophagus and stomach into the duodenum where examination was now carried out in a retrograde fashion. The duodenum showed no acute inflammatory changes or ulcerations. The gastroscope was withdrawn to the stomach that did show a [id number] acute gastritis. No acute ulcerations were noted. Antral biopsies were obtained to look for Helicobacter pylori. The gastroscope was then retroflexed to visualize the proximal stomach. No hiatal hernia seen. No tumors or polyps were seen in the proximal stomach. The gastroscope was then straightened and slowly withdrawn. The greater and lesser curvatures were well visualized. Again, no ulcerations or polyps were seen. The GE junction was sharply defined and showed no acute inflammatory changes or ulcerations. There was no evidence of esophagitis. The esophagus itself demonstrated poor contractility with tertiary contractions only. The vocal cords were briefly visualized as the scope was withdrawn and noted to move symmetrically. The gastroscope was then removed with the patient having tolerated the procedure well. Following colonoscopy, he was taken to recovery room in stable condition. LIDA / ROBIN /[id number] JEAN-PIERRE
--- NOTE | 2021-10-14 16:48 | OR ---
SURGEON: Too Boss M.D. DATE OF PROCEDURE: 10/14/2021 OPERATION PERFORMED: Colonoscopy. PRIMARY SURGEON: Too Boss M.D. RECREATION TEACHER: Global Risk Management Director: Coral Sue NP student. ANESTHESIA: MAC. ASA CLASSIFICATION: III. PREOPERATIVE DIAGNOSES: 1. Abdominal pain. 2. Desire for colorectal cancer screening. POSTOPERATIVE DIAGNOSIS: No evidence of neoplasia. DESCRIPTION OF PROCEDURE: Following upper GI endoscopy, the patient was maintained in the left lateral decubitus position. The colonoscope was inserted into the rectum and advanced with minimal difficulty to the cecum. The cecum was identified by internal landmarks and external pressure. The colonoscope was retroflexed to visualize the ascending colon from below, then straightened and slowly withdrawn. The cecum, ascending colon, hepatic flexure, transverse colon, splenic flexure, descending colon, sigmoid colon, and rectum were very well visualized. No tumors, polyps, diverticula, or angiodysplastic changes were noted anywhere in the large intestine. There was no evidence of inflammatory bowel disease. No ulcerations were noted. The colonoscope was withdrawn to the rectum and retroflexed to visualize the anal orifice from above. Again, no tumors or polyps were seen and there were no acute hemorrhoidal changes. The colonoscope was then straightened, the rectum aspirated, and the colonoscope removed. The patient tolerated the procedure well and was taken to recovery room in stable condition. LIDA / ROBIN /[id number] JEAN-PIERRE
== END 2021-10-14 11:18 | disposition home or self-care (01) ==
LOC: MW.SDS 08:12
PROVIDERS: ATTEND Surgery
DX: Z12.11 Encounter for screening for malignant neoplasm of colon (principal); K29.00 Acute gastritis without bleeding; K29.50 Unspecified chronic gastritis without bleeding; K31.89 Other diseases of stomach and duodenum; E11.9 Type 2 diabetes mellitus without complications; E78.5 Hyperlipidemia, unspecified; E78.1 Pure hyperglyceridemia; F17.200 Nicotine dependence, unspecified, uncomplicated; Z79.899 Other long term (current) drug therapy; Z90.49 Acquired absence of other specified parts of digestive tract; Z98.890 Other specified postprocedural states; Z87.19 Personal history of other diseases of the digestive system
CPT/HCPCS: 43239; 45378; J2250; J2704; J3010; J7120; 00813